=== PATIENT | male | born 1975 | race Two or more races ===

== ENCOUNTER 2016-10-17 14:04 | Emergency (ER) | payer SELFPAY ==
[2016-10-17 14:43] VITALS: BP 122/78; PULSE 76; TEMP 98; BMI 55.2
[2016-10-17] MEDS ORDERED: TETRACAINE 0.5% HCL 0.6ML DROPPER.BOTTLE OD ONE (15:37)
[2016-10-17] MEDS ORDERED: TETRACAINE 0.5% OPHTH SOLN 2 ML BOTTLE ONE (15:38)
--- NOTE | 2016-10-17 15:43 | PDOC ---
History of Present Illness - General Chief Complaint: Eye Problem Stated Complaint: EYE PROBLEM Time Seen by Provider: 10/17/16 15:26 History Source: Patient, Health Support Specialist Used ([id number]) Exam Limitations: Language Barrier - History of Present Illness Initial Comments: 10/17/16 15:47 41 yr male states he got dust in his eye one week ago now itchy red and discharge. no pain denies photophobia no change in vision noted. Pt does not use glasses. Timing/Duration: 1 week Past History - Past Medical History Allergies/Adverse Reactions: Allergies Allergy/AdvReac Type Severity Reaction Status Date / Time No Known Allergies Allergy Verified 10/17/16 14:39 Home Medications: Ambulatory Orders Polymyxin B Sulf/Trimethoprim [Polymyxin B-Tmp Eye Drops] 2 drop OD QID #1 bottle 10/17/16 Other medical history: morbid obestiy - Psycho/Social/Smoking Cessation Hx Anxiety: No Suicidal Ideation: No Smoking History: Never smoked Information on smoking cessation initiated: No Hx Alcohol Use: No Drug/Substance Use Hx: No Substance Use Type: None Review of Systems - Review of Systems Able to Perform ROS?: Yes Is the patient limited Maldivian proficient: No Constitutional: No: Symptoms Reported HEENTM: Yes: See HPI *Physical Exam - Vital Signs Last Vital Signs Temp Pulse Resp BP Pulse Ox 98.0 F 76 18 122/78 100 10/17/16 14:40 10/17/16 14:40 10/17/16 14:40 10/17/16 14:40 10/17/16 14:40 - Physical Exam General Appearance: Yes: Nourished, Appropriately Dressed HEENT: positive: EOMI, MARYANA, Other (right eye with conjunctival erythema, injected with discharge , neg hyphema) Neck: negative: Tender Respiratory/Chest: positive: Lungs Clear, Normal Breath Sounds Cardiovascular: positive: Regular Rhythm, Regular Rate Procedures - Eye Procedure Alcaine Drops Administered: Yes (2 drops ) Progress: 10/17/16 15:51 neg fb seen, neg uptake no abrasion Medical Decision Making - Medical Decision Making 10/17/16 15:52 right eye itchy red with discharge for one week after getting dust in the eye no pain neg photophobia neg visual disturbance acuity is 20/30 bilaterally without corrective lenses *DC/Admit/Observation/Transfer Diagnosis at time of Disposition: Conjunctivitis Qualifiers: Conjunctivitis type: acute Acute conjunctivitis type: viral Laterality: right Qualified Code(s): B30.9 - Viral conjunctivitis, unspecified - Prescriptions Prescriptions: Polymyxin B Sulf/Trimethoprim [Polymyxin B-Tmp Eye Drops] 2 drop OD QID #1 bottle - Referrals Referrals: Steven Bray [Staff Physician] - - Patient Instructions Additional Instructions: please follow with the eye doctor in 48hrs for follow up call today to make appointment use the eye drops as prescribed wash hands frequently change pillow cases bath towels to avoid recontaminating the surface
== END 2016-10-17 15:53 | disposition home or self-care (01) ==
LOC: JERFT 14:04
PROC: 4A07X0Z Measurement of Visual Acuity, External Approach (ICD-10-PCS; principal; 2016-10-17)
DX: B30.9 Viral conjunctivitis, unspecified (principal); B97.89 Other viral agents as the cause of diseases classified elsewhere
CPT/HCPCS: 99281-25

== ENCOUNTER 2017-07-05 08:50 | Emergency (ER) | payer SELFPAY ==
[2017-07-05 09:06] VITALS: TEMP 98; BMI 55.5
[2017-07-05 09:06] LABS: URINE APPEARANCE Clear; URINE BILIRUBIN Negative (NEGATIVE); URINE COLOR AMBER; URINE GLUCOSE (UA) 2+ (NEGATIVE); URINE KETONE Negative (NEGATIVE); URINE LEUK ESTERASE Negative (NEGATIVE); URINE NITRITE Negative (NEGATIVE); URINE PROTEIN Negative (NEGATIVE); URINE UROBILINOGEN 0.2 (0.2-1.0)
[2017-07-05] MEDS ORDERED: HEMOQUE TEST 1 EACH EACH ONE (09:10)
--- NOTE | 2017-07-05 09:38 | PDOC ---
History of Present Illness - History of Present Illness Initial Comments: 07/05/17 09:41 42 yo M with h/o morbid obesity, NIDDM who p/w lightheadedness. Patient reports 3 days of biliary, non bloody emesis following PO intake, and loose watery stools ( now resolved). States that he developed lightheadedness without LOC, while taking his friend to the ED this AM. Also reports burning epigastric pain , worse with emesis and decreased PO intake. No hematemesis, BPR. Patient also with chronic urinary complaints. Reports chronic dysuria, and suprpapubic discomfort with absent hematuria, or increased urinary frequency. Denies F/C, CP, constipation,weakness, sensory changes PMH: as noted above. Reports h/o hernia repair. Denies h/o endoscopy. Does not f /w GI. Denies h/o STIs. Medication: Denies ROS: as noted above SHx: Denies Etoh use. Tobacco cessation 10 years ago. Denies h/o IVDA. Allergies: NKDA <Mahendra Gale - Last Filed: 07/05/17 12:10> <Darvin Cobb - Last Filed: 07/12/17 07:55> - General Chief Complaint: Urinary Problem Stated Complaint: URINARY SYMPTOMS,DIZZINESS Time Seen by Provider: 07/05/17 09:03 Past History - Past Medical History Asthma: Yes COPD: No Diabetes: Yes - Immunization History Immunization Up to Date: Yes - Suicide/Smoking/Psychosocial Hx Smoking Status: Yes Smoking History: Former smoker Have you smoked in the past 12 months: No Number of Cigarettes Smoked Daily: 0 If you are a former smoker, when did you quit?: 10 years ago Information on smoking cessation initiated: No Hx Alcohol Use: No Drug/Substance Use Hx: No Substance Use Type: None <Mahendra Gale - Last Filed: 07/05/17 12:10> <Darvin Cobb - Last Filed: 07/12/17 07:55> - Past Medical History Allergies/Adverse Reactions: Allergies Allergy/AdvReac Type Severity Reaction Status Date / Time No Known Allergies Allergy Verified 07/05/17 08:52 Home Medications: Ambulatory Orders Metformin HCl 500 mg PO BID #20 tablet 07/29/15 Review of Systems - Review of Systems Comments:: 07/05/17 10:00 GENERAL/CONSTITUTIONAL: No fever or chills. No weakness. HEAD, EYES, EARS, NOSE AND THROAT: No change in vision. No ear pain or discharge. No sore throat. CARDIOVASCULAR: No chest pain or shortness of breath RESPIRATORY: + cough. No wheezing, or hemoptysis. GASTROINTESTINAL: + nausea, vomiting, diarrhea. No constipation. GENITOURINARY+dysuria. No frequency, or change in urination. MUSCULOSKELETAL: No joint or muscle swelling or pain. No neck or back pain. SKIN: No rash NEUROLOGIC: + Lightheadedness. No headache, vertigo, loss of consciousness, or change in strength/sensation. ENDOCRINE: No increased thirst. No abnormal weight change HEMATOLOGIC/LYMPHATIC: No anemia, easy bleeding, or history of blood clots. ALLERGIC/IMMUNOLOGIC: No hives or skin allergy. <Mahendra Gale - Last Filed: 07/05/17 12:10> *Physical Exam - Vital Signs Last Vital Signs Temp Pulse Resp BP Pulse Ox 98 F 94 H 18 137/82 98 07/05/17 08:50 07/05/17 08:50 07/05/17 08:50 07/05/17 08:50 07/05/17 08:50 - Physical Exam Comments: 07/05/17 10:02 GENERAL: Awake, alert, and fully oriented, in no acute distress HEAD: No signs of trauma, normocephalic, atraumatic EYES: PERRLA, EOMI, sclera anicteric, conjunctiva clear ENT:Dry mucous membranes. Auricles normal inspection, hearing grossly normal, nares patent, oropharynx clear without exudates. NECK: Normal ROM, supple, no lymphadenopathy, JVD, or masses LUNGS: No distress, speaks full sentences, clear to auscultation bilaterally HEART: Regular rate and rhythm, normal S1 and S2, no murmurs, rubs or gallops, peripheral pulses normal and equal bilaterally. ABDOMEN: Portruberant abdomen. Soft, nontender, normoactive bowel sounds. No guarding, no rebound, no rigidity. No masses. Neg CVA ttp. No suprpapubic ttp. : Erythematous distal foreskin, with 1 mm L horizontal fissure. When foreskin retracted able to visualzie glans penis. Glans penis with zhang/white skin change. Absent discharge or blood from urethral meatus. Absent scrotal ttp or swelling. EXTREMITIES : Normal inspection, Normal range of motion, no edema. No clubbing or cyanosis. SKIN: Warm, Dry, normal turgor, no rashes or lesions noted <Mahendra Gale - Last Filed: 07/05/17 12:10> - Vital Signs Last Vital Signs Temp Pulse Resp BP Pulse Ox 98 F 80 18 130/78 99 07/05/17 08:50 07/05/17 12:34 07/05/17 12:34 07/05/17 12:34 07/05/17 12:34 <Darvin Cobb S - Last Filed: 07/12/17 07:55> ED Treatment Course - LABORATORY CBC & Chemistry Diagram: 07/05/17 09:30 07/05/17 10:37 - ADDITIONAL ORDERS Additional order review: Laboratory Results 07/05/17 08:57 Urine Color Parris Urine Appearance Clear Urine pH 5.0 Ur Specific [place] 1.020 Urine Protein Negative Urine Glucose (UA) 2+ H Urine Ketones Negative Urine Blood Negative Urine Nitrite Negative Urine Bilirubin Negative Urine Urobilinogen 0.2 Ur Leukocyte Esterase Negative <Mahendra Gale - Last Filed: 07/05/17 12:10> - LABORATORY CBC & Chemistry Diagram: 07/05/17 09:30 07/05/17 10:37 - ADDITIONAL ORDERS Additional order review: 07/05/17 07/05/17 09:33 09:30 RBC 5.76 H MCV 85.6 MCHC 34.0 RDW 12.3 MPV 7.4 L Neutrophils % 47.1 Lymphocytes % 37.7 Monocytes % 10.8 H Eosinophils % 2.8 Basophils % 1.6 POC Glucometer [id number] - Medications Given in the ED: ED Medications Discontinued Medications Generic Name Dose Route Start Last Admin Trade Name Freq PRN Reason Stop Dose Admin Ondansetron HCl 4 mg 07/05/17 09:57 07/05/17 10:11 Zofran Injection IVPB 07/05/17 09:58 4 mg ONCE ONE Administration <Darvin Cobb S - Last Filed: 07/12/17 07:55> Medical Decision Making - Medical Decision Making 07/05/17 10:05 42 yo M with h/o morbid obesity, poorly controlled NIDDM who p/w acute lightheadedness and 3 days of biliary, non bloody emesis, and loose watery stools. VSS, A&OX3, NAD. Patient with clinical s/s of dehydration. Will IVF resuscitate. Will evaluate for electrolyte abnml, toxic or acid base disturbance , metabolic derangements, or underlying infections. GI type symptoms most likely self limiting and 2/2 acute viral gastroenteritis. Will also consider symptomatic hyperglycemia, HHS, biliary pathology/dz., cystitis. Patient uncircumcised with with likely penile yeast infection. ED course: CBC, CMP, Cardiac Pr, PT/INR UA EKG Zofran, NS EKG: NSR with TWI lead III. Absent SEGUNDO, STD. Normal interval duration and axis. 07/05/17 11:44 CBC: Unremarkable Glu: 313 CMP: Unremarkable UA: Neg Patient safe for d/c with return precautions. Advised to f/u with PMD. <Mahendra Gale - Last Filed: 07/05/17 12:10> *DC/Admit/Observation/Transfer - Attestations Physician Attestion: 07/05/17 10:12 I attest to the information provided in this note. <Mahendra Gale - Last Filed: 07/05/17 12:10> <Darvin Cobb - Last Filed: 07/12/17 07:55> Diagnosis at time of Disposition: Yeast infection of the skin, Morbid obesity, Noncompliance with medication regimen, Diabetes - Discharge Dispostion Disposition: HOME Condition at time of disposition: Stable - Referrals Referrals: Joaquín Montiel MD [Staff Physician] - - Patient Instructions Printed Discharge Instructions: DI for Abdominal Pain-Adult, Type 2 Diabetes Additional Instructions: Please return to the emergency department with any new or worsening symptoms or concerns. Please follow up with your primary care physician within 72 hours. Please take Metformin as prescribed by your primary care physician. Print Language: AZERBAIJANI Attending Attestation - Resident Resident Name: Mahendra Gale - ED Attending Attestation I have performed the following: I have examined & evaluated the patient, The case was reviewed & discussed with the resident, I agree w/resident's findings & plan, Exceptions are as noted - HPI HPI: Obese, non compliant diabetic male, whose MD prescribed Metformin for DM, refuses to take medication, to loose weight. States he stopped drinking or using drugs 07/12/17 07:46 - Physicial Exam PE: Alert, oriented x 3, Obese No acute distress His complaint now is irritation on a noncircumsized penis with mild irritation and fisurae. Applied Bacitracin with relief - Medical Decision Making Obese individual who refuses to comply with diet, exercise or medication No acute distress. Had extensive discussion about the importance of compliance with above including but not limited to medical follow up with his doctor. Discussion with local service tech as well with phone translation Seemingly patient understood instructions and follow up with his local doctor, diet etc 07/12/17 07:51 <Darvin Cobb S - Last Filed: 07/12/17 07:55>
[2017-07-05] MEDS ORDERED: ONDANSETRON 4 MG/2 ML VIAL IVPB ONE (09:57)
[2017-07-05 10:05] LABS: BASO % 1.6 % (0-2.0); EOS % 2.8 % (0-4.5); HEMATOCRIT 49.3 % (35.4-49); HEMOGLOBIN 16.8 GM/dl (11.7-16.9); LYMPH % 37.7 % (8-40); MCH 29.1 pg (25.7-33.7); MEAN CELL VOLUME 85.6 fl (80-96); MEAN PLT VOLUME 7.4 fl (7.5-11.1); MONO % 10.8 % (3.8-10.2); NEUT % 47.1 % (42.8-82.8); PLATELET COUNT 364 K/MM3 (134-434); RBC 5.76 M/mm3 (4.00-5.60); RDW 12.3 % (11.9-15.9); WHITE BLOOD COUNT 8.3 K/mm3 (4.0-10.8)
[2017-07-05] MEDS ORDERED: ONDANSETRON 4 MG/2 ML VIAL ONE (10:06)
[2017-07-05 10:15] LABS: INR 0.98 (0.82-1.09)
[2017-07-05 11:33] LABS: ALBUMIN 3.7 g/dl (3.5-5.0); ALK PHOS 87 U/L (32-92); ANION GAP 8 (8-16); BILIRUBIN,TOTAL 0.5 mg/dl (0.2-1.0); BLOOD UREA NITROGEN 13 mg/dl (7-18); CALCIUM 8.8 mg/dl (8.4-10.2); CHLORIDE 106 mmol/L (98-107); CO2 23 mmol/L (22-28); POTASSIUM 4.2 mmol/L (3.5-5.1); SGOT/AST 29 U/L (10-42); SGPT/ALT 49 U/L (10-40); SODIUM 137 mmol/L (136-145); TOT PROT 6.8 g/dl (6.4-8.3)
[2017-07-05 11:37] LABS: GLUCOSE,RANDOM 313 mg/dl (74-106)
[2017-07-05 11:54] LABS: LIPASE 66 U/L (73-393)
[2017-07-05 13:35] VITALS: BP 130/78; PULSE 80
--- NOTE | 2017-07-06 11:22 | EKG ---
Test Reason : Blood Pressure : / mmHG Vent. Rate : 097 BPM Atrial Rate : 097 BPM P-R Int : 158 ms QRS Dur : 088 ms QT Int : 366 ms P-R-T Axes : 043 043 001 degrees QTc Int : 464 ms NORMAL SINUS RHYTHM POOR R WAVE PROGRESSION NO PREVIOUS ECGS AVAILABLE Confirmed by EVER PIERRE, OLGA ([id number]) on 07/06/2017 11:22:16 AM Referred By: RAMON AKBAR Confirmed By:OLGA CURTIS MD
== END 2017-07-05 13:30 | disposition home or self-care (01) ==
LOC: FER 08:50 → MERGE 08:50 → FER 13:30
PROC: 3E033GC Introduction of Other Therapeutic Substance into Peripheral Vein, Percutaneous Approach (ICD-10-PCS; principal; 2017-07-05)
DX: B37.2 Candidiasis of skin and nail (principal); E66.01 Morbid (severe) obesity due to excess calories; Z68.43 Body mass index [BMI] 50.0-59.9, adult; Z91.14 Patient's other noncompliance with medication regimen; E11.9 Type 2 diabetes mellitus without complications; Z87.891 Personal history of nicotine dependence
CPT/HCPCS: 36415; 80053; 81003; 82550; 82553; 82962; 83690; 84484; 85025; 85610; 93005; 99283-25

== ENCOUNTER 2018-07-22 10:19 | Emergency (ER) | payer SELFPAY | END 2018-07-22 18:30 | disposition home or self-care (01) | LOC: JER 10:19 ==

== ENCOUNTER 2019-02-02 14:09 | Inpatient (IN) | payer OTHER ==
[2019-02-02 14:28] VITALS: BMI 45.3
[2019-02-02] MEDS ORDERED: morphine CARPU-JECT 4 MG/1 ML DISP.SYRIN IVPUSH ONE (17:50)
[2019-02-02] MEDS ORDERED: SODIUM CHLORIDE 0.9% 500 ML INFUS.BAG IV ONE ×2 (17:54→19:26)
[2019-02-02] MEDS ORDERED: ACETAMINOPHEN 1000 MG/100 ML VIAL (NON FORMULARY) IVPB ONE (17:54)
[2019-02-02] MEDS ORDERED: ACETAMINOPHEN 325 MG TABLET (FP) PO ONE (17:56)
--- NOTE | 2019-02-02 17:57 | PDOC ---
History of Present Illness - General Chief Complaint: Pain Stated Complaint: PAIN Time Seen by Provider: 02/02/19 16:56 History Source: Patient Exam Limitations: No Limitations - History of Present Illness Initial Comments: 02/02/19 17:48 Patient is a 43-year-old male with history of appendectomy, diabetes uncontrolled, here with complaints of right lower quadrant and right groin pain with a purulent discharge from the groin area x 5 days. Patient states his pain has been 9/10, sharp aggravated with walking no alleviating factors. States today he has been having some urinary problems, with urinary frequency and dribbling on his pants. Patient denies any fever, chills, nausea, vomiting. Patient states he has not seen anyone or taking medications for his diabetes in 1 year. He has been controlling it by drinking lots of water. PMHX: As above PSOCHX: neg etoh, drug, cig ALL: NKDA GENERAL/CONSTITUTIONAL: [No fever or chills. No weakness. No weight change.] HEAD, EYES, EARS, NOSE AND THROAT: [No change in vision. No ear pain or discharge. No sore throat.] CARDIOVASCULAR: [No chest pain or shortness of breath.] RESPIRATORY: [No cough, wheezing, or hemoptysis.] GASTROINTESTINAL: [No nausea, vomiting, diarrhea or constipation. No rectal bleeding.] GENITOURINARY: [No dysuria, frequency, or change in urination.] MUSCULOSKELETAL: [No joint or muscle swelling or pain. No neck or back pain.] SKIN AND BREASTS: [No rash or easy bruising.] NEUROLOGIC: [No headache, vertigo, loss of consciousness, or loss of sensation.] PSYCHIATRIC: [No depression or anxiety.] ENDOCRINE: [(+) increased thirst. (+) abnormal weight change.] HEMATOLOGIC/LYMPHATIC: [No anemia, easy bleeding, or history of blood clots.] ALLERGIC/IMMUNOLOGIC: [No hives or skin allergy. No latex allergy.] GENERAL: [The patient is awake, alert, and fully oriented, in moderate painful distress.] HEAD: [Normal with no signs of trauma.] EYES: [Pupils equal, round and reactive to light, extraocular movements intact, sclera anicteric, conjunctiva clear.] ENT: [Ears normal, nares patent, oropharynx clear without exudates. Moist mucous membranes.] NECK: [Normal range of motion, supple without lymphadenopathy, JVD, or masses.] LUNGS: [Breath sounds equal, clear to auscultation bilaterally. No wheezes, and no crackles.] HEART: [Regular rate and rhythm, normal S1 and S2 without murmur, rub.] ABDOMEN: [Soft, obese, (+) tenderness to the RLQ, groin, suprapubic and testicle , tender firm mass to the right groin, suprapubic area with surrounding erythema extending to the scrotal sac, normoactive bowel sounds. No guarding, no rebound. No masses.] : Tender swollen right testicle, moderate erythema to the sac, erythema and tenderness to the shaft of the penis, EXTREMITIES: [Normal range of motion, no edema. No clubbing or cyanosis. No cords, erythema, or tenderness.] NEUROLOGICAL: [Cranial nerves II through XII grossly intact. Normal speech, normal gait.] PSYCH: [Normal mood, normal affect.] SKIN: [Warm, Dry, normal turgor, no rashes or lesions noted.] Past History - Past Medical History Allergies/Adverse Reactions: Allergies Allergy/AdvReac Type Severity Reaction Status Date / Time No Known Allergies Allergy Verified 02/02/19 14:28 Home Medications: Ambulatory Orders metFORMIN HCL [Metformin HCl] 500 mg PO BID #20 tablet 07/29/15 Asthma: Yes COPD: No Diabetes: Yes - Immunization History Immunization Up to Date: Yes - Psycho Social/Smoking Cessation Hx Smoking Status: Yes Smoking History: Never smoked Have you smoked in the past 12 months: No Number of Cigarettes Smoked Daily: 0 If you are a former smoker, when did you quit?: 10 years ago Hx Alcohol Use: No Drug/Substance Use Hx: No Substance Use Type: None *Physical Exam - Vital Signs Last Vital Signs Temp Pulse Resp BP Pulse Ox 98.8 F 120 H 18 139/92 97 02/02/19 14:24 02/02/19 14:24 02/02/19 14:24 02/02/19 14:24 02/02/19 14:24 ED Treatment Course - LABORATORY CBC & Chemistry Diagram: 02/02/19 18:20 02/02/19 18:20 Medical Decision Making - Medical Decision Making 02/02/19 17:48 Patient is a 43-year-old male with history of appendectomy, diabetes uncontrolled, here with complaints of right lower quadrant and right groin pain with a purulent discharge from the groin area x 5 days. Patient states his pain has been 9/10, sharp aggravated with walking no alleviating factors. States today he has been having some urinary problems, with urinary frequency and dribbling on his pants. Patient denies any fever, chills, nausea, vomiting. Patient states he has not seen anyone or taking medications for his diabetes in 1 year. He has been controlling it by drinking lots of water. DDX:, abscess groin, concerns for it extending into the testicular sac, cellulitis, Tarun's Patient is tachycardic, and a temperature taken in the vertical area was 100 degrees Fahrenheit orally. Suspect that the patient has sepsis. Sepsis work-up done. Labs, IV fluids x3 L ordered Tylenol, morphine 4 mg IV for pain. Zosyn 3.375 g IV Will obtain a CT scan of the abdomen pelvis to look for Tarun's and abscess. Reassess, Selected Entries 02/02/19 20:29 Temperature 99.8 F H Pulse Rate [ 105 H Left Brachial] Respiratory 17 Rate Blood Pressure 119/77 [Left Arm] O2 Sat by Pulse 96 Oximetry (%) Laboratory Tests 02/02/19 02/02/19 02/02/19 18:20 18:20 18:20 WBC 17.6 H Hgb 15.4 Hct 45.3 Plt Count 313 Absolute Neuts (auto) 12.4 H Monocytes % 13.8 H PT with INR INR VBG pH POC VBG pCO2 POC VBG pO2 VBG HCO3 VBG O2 Sat (Gutierrez) VBG Base Excess Sodium 131 L Potassium 3.8 Chloride 98 Carbon Dioxide 24 Anion Gap 10 BUN 11.3 Creatinine 1.2 Random Glucose 373 H Lactic Acid 3.6 H* 02/02/19 02/02/19 18:20 18:20 WBC Hgb Hct Plt Count Absolute Neuts (auto) Monocytes % PT with INR 14.10 H INR 1.19 H VBG pH 7.42 H POC VBG pCO2 35.9 L POC VBG pO2 < 49 H VBG HCO3 23.0 VBG O2 Sat (Gutierrez) 78.0 VBG Base Excess -0.5 Sodium Potassium Chloride Carbon Dioxide Anion Gap BUN Creatinine Random Glucose Lactic Acid Urine is negative 02/03/19 00:45 Patient Full Name: MEHRAN STEWART Patient Accession No: [id number] Patient : 1975 Reason for Exam: abscess Addenda Reason: Additional images added to study image count is now [id number] site would like addendum Referring Physician: Patient Name: TERRY LAURENT THIS IS A PRELIMINARY REPORT FROM [facility] DATE OF SERVICE: 2019-02-02 22:19:22 IMAGES: [id number] EXAM: CT ABDOMEN and CT PELVIS CT WITH CONTR HISTORY: 43-year-old male uncontrolled diabetes right groin draining pus infection extending into the right scrotum assess for an abscess COMPARISON: None. FINDINGS: Mild basilar atelectasis. Mild hepatomegaly and steatosis. Dependent density in the gallbladder neck most likely due to sludge or cholelithiasis with moderate gallbladder distention. Mild nonspecific splenomegaly most likely due to mild portal venous hypertension. Pancreas adrenal glands kidneys appear unremarkable. No nephrolithiasis or hydronephrosis. Stomach small bowel and appendix appear unremarkable. No appendicitis. Mild diverticulosis without diverticulitis. Calcified granulomas in the prostate. Moderate bladder distention. Moderate amount of fluid and edema in the right groin consistent with soft tissue cellulitis infection. Right groin nonspecific lymphadenopathy most likely reactive to infection. Mild to moderate degenerative disc disease. Significant subcutaneous adipose tissue is incompletely included within the [id number]. IMPRESSION: Moderate amount of fluid and edema in the right groin consistent with soft tissue cellulitis infection. If there is a clinical concern for Tarun's gangrene infection of the scrotum, then further evaluation and workup with a CT Scan Of The Pelvis And Proximal Thighs Down To Below The Level Of The Identified Air Gap On The Building Economist Image Between The Legs Below The Level Of The Midline Soft Tissues Of The Scrotum And Medial Pelvis And Medial Proximal Thighs may be needed. Right groin nonspecific lymphadenopathy most likely reactive to infection. Mild hepatomegaly and steatosis. Dependent density in the gallbladder neck most likely due to sludge or cholelithiasis with moderate gallbladder distention. If there is a clinical indication further evaluation and workup with a ultrasound of the gallbladder may be needed. Mild nonspecific splenomegaly most likely due to mild portal venous hypertension. Mild diverticulosis without diverticulitis. Calcified granulomas in the prostate. Moderate bladder distention. A verbal report of the abnormal results were discussed with Olena PAC by Dr. Leija at 12:02 AM EST February 03, 2019. This CT exam was performed using one or more of the following dose reduction techniques: automated exposure control, adjustment of the mA and/or kV according to patient size, use of iterative reconstruction technique. One or more of the following dose reduction techniques were used: automated exposure control, adjustment of the mA and/or kV according to patient size, use of iterative reconstructive technique. THIS DOCUMENT HAS BEEN ELECTRONICALLY SIGNED Ward Leija MD 02/03/2019 00:27 HARLAN Bran Please call Imaging Superson[facility] [phone] with questions. INTERPRETING RADIOLOGIST: Ward Leija MD Electronically Signed: Feb 03, 2019 12:28AM EST Called by the radiologist to inform that the scan would need to have more images so that Tarun's can be assessed. Patient written for pelvic CT with follow-through to the thigh proximally. Spoke to the radiology physician assistant who states that he could reformat the images and send it to the radiologist before scanning the patient again. Images sent to radiologist per environmental health technologist and patient was sent back to room. Patient Full Name: MEHRAN STEWART Patient Accession No: [id number] Patient : 1975 Reason for Exam: abscess Addenda Reason: Additional images added to study image count is now [id number] site would like addendum Referring Physician: TERRY LAURENT IMAGES: [id number] scan images of the pelvis are now provided. Moderate to large bilateral scrotal hydroceles suspicious for infection incompletely included within the [id number]. Mild nonspecific scrotal skin thickening most likely due to soft tissue cellulitis infection. No subcutaneous gas is included within the [id number] to suggest Tarun's gangrene infection. The lower scrotum is excluded. Cannot exclude pathology in the lower scrotum outside the field of view. If clinically indicated follow-up evaluation scrotal ultrasound may be needed. One or more of the following dose reduction techniques were used: automated exposure control, adjustment of the mA and/or kV according to patient size, use of iterative reconstructive technique. THIS DOCUMENT HAS BEEN ELECTRONICALLY SIGNED Ward Leija MD 02/03/2019 00:52 HARLAN Barn Please call Imaging Supersonic Engineer [phone]) with questions. Lactic repeated after 2 L now 1.3 Patient improved from pain. Dr. Manning was consulted recommended to give clindamycin 900 mg IV. Consult also placed for urology Dr. Goodman CAT scan images still not adequate for evaluation will send the patient back for the pelvic CT scan Noncon with evaluation down to proximal thigh. Discharge - Discharge Information Problems reviewed: Yes Clinical Impression/Diagnosis: Groin abscess, Tarun's disease Abdominal pain Qualifiers: Abdominal location: right lower quadrant Qualified Code(s): R10.31 - Right lower quadrant pain Condition: Fair - Admission Yes - Follow up/Referral - Patient Discharge Instructions - Post Discharge Activity
[2019-02-02 18:39] LABS: BASO % 1.2 % (0-2.0); EOS % 0.6 % (0-4.5); HEMATOCRIT 45.3 % (35.4-49); HEMOGLOBIN 15.4 GM/dL (11.7-16.9); LYMPH % 13.9 % (8-40); MCH 28.6 pg (25.7-33.7); MCHC 33.9 g/dl (32.0-35.9); MEAN CELL VOLUME 84.3 fl (80-96); MEAN PLT VOLUME 7.5 fl (7.5-11.1); MONO % 13.8 % (3.8-10.2); NEUT % 70.5 % (42.8-82.8); PLATELET COUNT 313 K/MM3 (134-434); RBC 5.37 M/mm3 (4.00-5.60); RDW 13.4 % (11.9-15.9); WHITE BLOOD COUNT 17.6 K/mm3 (4.0-10.0)
[2019-02-02 18:40] LABS: VENOUS PC02 35.9 mmHg (38-52); VENOUS PH 7.42 (7.31-7.41)
[2019-02-02 18:41] LABS: VENOUS PO2 < 49 mmHg (28-48)
[2019-02-02 18:47] LABS: PH,URINE 5.5 (5.0-8.0); URINE APPEARANCE CLEAR; URINE BILIRUBIN NEGATIVE (NEGATIVE); URINE COLOR YELLOW; URINE GLUCOSE (UA) 3+ (NEGATIVE); URINE KETONE NEGATIVE (NEGATIVE); URINE LEUK ESTERASE NEGATIVE (NEGATIVE); URINE NITRITE NEGATIVE (NEGATIVE); URINE PROTEIN NEGATIVE (NEGATIVE)
[2019-02-02 18:52] LABS: INR 1.19 (0.83-1.09); PROTHROMBIN TIME (PATIENT) 14.1 SEC (9.7-13.0)
[2019-02-02] MEDS ORDERED: morphine SULFATE 4 MG/ML VIAL ONE (18:53)
[2019-02-02] MEDS ORDERED: ACETAMINOPHEN 325 MG TABLET (FP) ONE (18:53)
[2019-02-02 19:16] LABS: ALBUMIN 3.2 g/dl (3.4-5.0); BILIRUBIN,TOTAL 0.8 mg/dL (0.2-1); BLOOD UREA NITROGEN 11.3 mg/dL (7-18); CALCIUM 8.8 mg/dL (8.5-10.1); CREATININE 1.2 mg/dL (0.55-1.3); POTASSIUM 3.8 mmol/L (3.5-5.1); TOT PROT 7.2 g/dl (6.4-8.2)
[2019-02-02] MEDS ORDERED: PIPERACILLIN/TAZOB 3.375 GM 3.375 GM in DEXTROSE 5%-WATER - 50 ML IVPB ONE ×2 (19:27→19:56)
[2019-02-02] MEDS ORDERED: PIPERACILLIN/TAZOB 3.375 GM 3.375 GM/50 ML BAG IVPB ONE (20:03)
[2019-02-03] MEDS ORDERED: CLINDAMYCIN 900 MG PREMIX IVPB 900 MG/50 ML BAG IVPB ONE ×2 (01:24→01:31)
--- NOTE | 2019-02-03 01:25 | HP ---
CHIEF COMPLAINT: RIGHT groin pain PCP: none HISTORY OF PRESENT ILLNESS: 43 y/o male PMH DM not on any treatment c/o right groin pain. He states that for one week he has experienced fever, worse at night, not recorded at home. Subsequently a tennis-ball sized swelling developed in the RIGHT groin ( approximately 29 Jan 2019). He states that swellings like this have occurred in the past, last time 1 year ago, but past instances have never been this large. Three days ago the swelling ruptured and began to bleed. He took his sister's Augmentin 30 mg once a day when it began to bleed (total of 3 days). He came in today 2/2 nausea and vomiting: multiple times today, stomach acid, not food containing, partially bloody, non-bilious. A concurrent symptom is foul smelling dysuria for 1 week. He describes difficulty initiating urination, assists by lifting his panus, and has seen hematuria. Additionally, he reports bloody stool for the last 4 years, pellet-like shape, with no mucus. He has never had a colonoscopy. His sister had breast cancer. He endorses weight loss of 60 lbs over the last 2 years; 390 to 330 lbs which he attributes to decreased appetite. The patient lives in his sister's house in [place] and has a son here but returns to [place] periodically. He denies recent illness, sick contacts, and new food. He denies cough, SOB, CP, abdominal pain, and BEYER. ER course was notable for: (1) CT read no subcutaneous gas; but clinical appearance of Tarun's Gangrene (2) FS 373 (3) Assessed by general surgery; urology on the way Family history: Mother DM, sister breast CA PAST MEDICAL HISTORY: DM PAST SURGICAL HISTORY: RIGHT inguinal hernia repair (1998 Mukul) Social History: Smoking: denies Alcohol: denies Drugs: denies Does not work Sexual history: Currently sexually active with women only. H/o STI in past but pt cannot recall what it was. Allergies: No Known Allergies Allergy (Verified 02/02/19 14:28) HOME MEDICATIONS: Denies taking any medications REVIEW OF SYSTEMS CONSTITUTIONAL: Absent: fever, chills, diaphoresis, generalized weakness, malaise, loss of appetite, weight change HEENT: Absent: rhinorrhea, nasal congestion, throat pain, throat swelling, difficulty swallowing, mouth swelling, ear pain, eye pain, visual changes CARDIOVASCULAR: Absent: chest pain, syncope, palpitations, irregular heart rate, lightheadedness , peripheral edema RESPIRATORY: Absent: cough, shortness of breath, dyspnea with exertion, orthopnea, wheezing, stridor, hemoptysis GASTROINTESTINAL: Absent: abdominal pain, abdominal distension, nausea, vomiting, diarrhea, constipation, melena, hematochezia GENITOURINARY: Absent: dysuria, frequency, urgency, hesitancy, hematuria, flank pain, genital pain MUSCULOSKELETAL: Absent: myalgia, arthralgia, joint swelling, back pain, neck pain SKIN: Absent: rash, itching, pallor HEMATOLOGIC/IMMUNOLOGIC: Absent: easy bleeding, easy bruising, lymphadenopathy, frequent infections ENDOCRINE: Absent: unexplained weight gain, unexplained weight loss, heat intolerance, cold intolerance NEUROLOGIC: Absent: headache, focal weakness or paresthesias, dizziness, unsteady gait, seizure, mental status changes, bladder or bowel incontinence PSYCHIATRIC: Absent: anxiety, depression, suicidal or homicidal ideation, hallucinations. PHYSICAL EXAMINATION Vital Signs - 24 hr 02/02/19 02/02/19 14:24 20:29 Temperature 98.8 F 99.8 F H Pulse Rate 120 H Pulse Rate [ 105 H Left Brachial] Respiratory 18 17 Rate Blood Pressure 139/92 Blood Pressure 119/77 [Left Arm] O2 Sat by Pulse 97 96 Oximetry (%) GENERAL: AOx3, in no acute distress. Obese. Diaphoretic. Upper Sorbian speaking. HEAD: NCAT EYES: KELBY, EOMI, conjunctiva clear. ENT: Ears normal, nares patent, oropharynx clear without exudates. Moist mucous membranes. NECK: Normal range of motion, supple without lymphadenopathy, JVD, or masses. LUNGS: CTAB. No wheezes, and no crackles. No accessory muscle use. HEART: RRR s1 s2 ABDOMEN: Obese, soft, BS present in all 4 quadrants, non-distended, no JVD, MUSCULOSKELETAL: No bony deformities or tenderness. No CVA tenderness. UPPER EXTREMITIES: 2+ pulses, warm, well-perfused. No cyanosis. No clubbing. No peripheral edema. LOWER EXTREMITIES: 2+ pulses, warm, well-perfused. No calf tenderness. No peripheral edema. : Shaved mons pubus. RIGHT inguinal tenderness, dried blood. Edema of the mons pubis great on RIGHT, erythematous, tender to palpation and warm. Penile and scrotal edema and erythema. No grossly apparent lesion/source of blood. POSTIVE RIGHT inguinal lymphadenopathy. NEUROLOGICAL: No focal deficits. Cranial nerves II-XII intact. Normal speech. Gait not appreciated. PSYCHIATRIC: Cooperative. Good eye contact. Appropriate mood and affect. SKIN: Warm, dry, normal turgor, normal capillary refill. Laboratory Results - last 24 hr 02/02/19 02/02/19 02/02/19 18:02 18:20 18:20 WBC 17.6 H RBC 5.37 Hgb 15.4 Hct 45.3 MCV 84.3 MCH 28.6 MCHC 33.9 RDW 13.4 Plt Count 313 MPV 7.5 Absolute Neuts (auto) 12.4 H Neutrophils % 70.5 Lymphocytes % 13.9 Monocytes % 13.8 H Eosinophils % 0.6 D Basophils % 1.2 Nucleated RBC % 0 PT with INR INR VBG pH POC VBG pCO2 POC VBG pO2 VBG HCO3 VBG O2 Sat (Gutierrez) VBG Base Excess Sodium 131 L Potassium 3.8 Chloride 98 Carbon Dioxide 24 Anion Gap 10 BUN 11.3 Creatinine 1.2 Est GFR (CKD-EPI)AfAm 84.13 Est GFR (CKD-EPI)NonAf 72.59 POC Glucometer 386 Random Glucose 373 H Lactic Acid Calcium 8.8 Total Bilirubin 0.8 AST 31 ALT 62 H Alkaline Phosphatase 140 H Total Protein 7.2 Albumin 3.2 L Urine Color Urine Appearance Urine pH Ur Specific [place] Urine Protein Urine Glucose (UA) Urine Ketones Urine Blood Urine Nitrite Urine Bilirubin Urine Urobilinogen Ur Leukocyte Esterase 02/02/19 02/02/19 02/02/19 18:20 18:20 18:20 WBC RBC Hgb Hct MCV MCH MCHC RDW Plt Count MPV Absolute Neuts (auto) Neutrophils % Lymphocytes % Monocytes % Eosinophils % Basophils % Nucleated RBC % PT with INR 14.10 H INR 1.19 H VBG pH 7.42 H POC VBG pCO2 35.9 L POC VBG pO2 < 49 H VBG HCO3 23.0 VBG O2 Sat (Gutierrez) 78.0 VBG Base Excess -0.5 Sodium Potassium Chloride Carbon Dioxide Anion Gap BUN Creatinine Est GFR (CKD-EPI)AfAm Est GFR (CKD-EPI)NonAf POC Glucometer Random Glucose Lactic Acid 3.6 H* Calcium Total Bilirubin AST ALT Alkaline Phosphatase Total Protein Albumin Urine Color Urine Appearance Urine pH Ur Specific [place] Urine Protein Urine Glucose (UA) Urine Ketones Urine Blood Urine Nitrite Urine Bilirubin Urine Urobilinogen Ur Leukocyte Esterase 02/02/19 18:20 WBC 17.6 RBC Hgb Hct MCV MCH MCHC RDW Plt Count MPV Absolute Neuts (auto) Neutrophils % Lymphocytes % Monocytes % Eosinophils % Basophils % Nucleated RBC % PT with INR INR VBG pH POC VBG pCO2 POC VBG pO2 VBG HCO3 VBG O2 Sat (Gutierrez) VBG Base Excess Sodium Potassium Chloride Carbon Dioxide Anion Gap BUN Creatinine Est GFR (CKD-EPI)AfAm Est GFR (CKD-EPI)NonAf POC Glucometer Random Glucose Lactic Acid Calcium Total Bilirubin AST ALT Alkaline Phosphatase Total Protein Albumin Urine Color Yellow Urine Appearance Clear Urine pH 5.5 Ur Specific [place] 1.044 H Urine Protein Negative Urine Glucose (UA) 3+ H Urine Ketones Negative Urine Blood Negative Urine Nitrite Negative Urine Bilirubin Negative Urine Urobilinogen 1.0 Ur Leukocyte Esterase Negative IMAGING Moderate amount of fluid and edema in the right groin consistent with soft tissue cellulitis infection. Right groin nonspecific lymphadenopathy most likely reactive to infection. Mild to moderate degenerative disc disease. Significant subcutaneous adipose tissue is incompletely included within the [id number]. IMPRESSION: Moderate amount of fluid and edema in the right groin consistent with soft tissue cellulitis infection. If there is a clinical concern for Tarun's gangrene infection of the scrotum, then further evaluation and workup with a CT Scan Of The Pelvis And Proximal Thighs Down To Below The Level Of The Identified Air Gap On The Content Development Manager Image Between The Legs Below The Level Of The Midline Soft Tissues Of The Scrotum And Medial Pelvis And Medial Proximal Thighs may be needed. Right groin nonspecific lymphadenopathy most likely reactive to infection. Mild hepatomegaly and steatosis. Dependent density in the gallbladder neck most likely due to sludge or cholelithiasis with moderate gallbladder distention. If there is a clinical indication further evaluation and workup with a ultrasound of the gallbladder may be needed. Mild nonspecific splenomegaly most likely due to mild portal venous hypertension. Mild diverticulosis without diverticulitis. Calcified granulomas in the prostate. Moderate bladder distention. ASSESSMENT/PLAN: 43 y/o male PMH DM not on any treatment c/o right groin pain. Clinically significant physicial exam. Tachycardic and elevated WBC. # Sepsis 2/2 scrotal cellulitis VS Tarun's Gangrene - Zosyn and clindamycin given initially and Vanc - Continue with zosyn 4.5 gm IV q6h - Continue with clindamycin 800 mg IV q8h for coverage of toxin producing bacteria - NS - Consult gen surgery - Consult urology - Consult ID - Type and screen, PT/PTT - F/u CK to assess for muscle invasion # DM - 10 units insulin now - ISS ACHS - Hba1c - Consider initiating WILLIE inhibitor for renal protection once hemodynamically stable - Fasting lipid panel # Morbid obesity - Consider bariatric surgery given 40+ BMI # Calcified granulomas in prostate - Acid fast bacili given travel to [place] - QuantiFERON gold - PA/lateral CXR - Consider biopsy if QuantiFERON is positive # Splenomegally - Seen on CT - Unclear cause - No pmh or fam h/o blood disorder #F/E/N - NS - Cont. to monitor - NPO for surgery # DVT prophylaxis - SCD # Disposition - Admit to med/surg Coleman Jaramillo MD Visit type - Emergency Visit Emergency Visit: Yes ED Registration Date: 02/03/19 Care time: The patient presented to the Emergency Department on the above date and was hospitalized for further evaluation of their emergent condition. - New Patient This patient is new to me today: Yes Date on this admission: 02/03/19 - Critical Care Critical Care patient: No ATTENDING PHYSICIAN STATEMENT I saw and evaluated the patient. I reviewed the resident's note and discussed the case with the resident. I agree with the resident's findings and plan as documented. SUBJECTIVE: OBJECTIVE: ASSESSMENT AND PLAN:
--- NOTE | 2019-02-03 01:38 | PN ---
Teaching Attending Note Name of Resident: Coleman Jaramillo ATTENDING PHYSICIAN STATEMENT I saw and evaluated the patient. I reviewed the resident's note and discussed the case with the resident. I agree with the resident's findings and plan as documented. SUBJECTIVE: 43-year-old Morbidly obese male From [place] with history of Uncontrolled diabetes, not on any medications not following with any doctors Complains of severe right groin and perineal pain for the past 4 to 5 days, with worsening redness and difficulty with urination. Patient reports taking 3 doses of his sisters Augmentin however it did not help much. He reports a boil in his right groin which burst and was bloody with some purulence. Reports some fevers and chills.Denied any discharge through his penis or diarrhea. OBJECTIVE: Last Vital Signs Temp Pulse Resp BP Pulse Ox 99.8 F H 105 H 17 119/77 96 02/02/19 20:29 02/02/19 20:29 02/02/19 20:29 02/02/19 20:29 02/02/19 20:29 GENERAL: Morbidly obese not in any distress HEENT: Normocephalic, atraumatic. PERRLA, EOMI. No conjunctival pallor. Sclera are non- icteric. Moist mucous membranes. Oropharynx is clear. NECK: Supple. Full ROM. No JVD. Carotid pulses 2+ and symmetric, without bruits. No thyromegaly. No lymphadenopathy. CARDIOVASCULAR: Regular rate and rhythm. No murmurs, rubs, or gallops. Distal pulses are 2+ and symmetric. PULMONARY: No evidence of respiratory distress. Lungs clear to auscultation bilaterally. No wheezing, rales or rhonchi. ABDOMINAL: Soft. Non-tender. Non-distended. No rebound or guarding. No organomegaly. Normoactive bowel sounds. MUSCULOSKELETAL Normal range of motion at all joints. No bony deformities or tenderness. No CVA tenderness. Extensive erythema in right groin with bloody purulent discharge on skin, extensive swelling to scrotum and penis with erythema. Warm to touch, right inguinal lymphadenopathy appreciated EXTREMITIES: No cyanosis. No clubbing. No edema. No calf tenderness. SKIN: Warm and dry. Normal capillary refill. No rashes. No jaundice. PSYCHIATRIC: Cooperative. Good eye contact. Appropriate mood and affect. Abnormal Lab Results 02/02/19 02/02/19 02/02/19 18:20 18:20 18:20 WBC 17.6 H Absolute Neuts (auto) 12.4 H Monocytes % 13.8 H PT with INR INR VBG pH POC VBG pCO2 POC VBG pO2 Sodium 131 L Random Glucose 373 H Lactic Acid 3.6 H* ALT 62 H Alkaline Phosphatase 140 H Albumin 3.2 L Ur Specific [place] Urine Glucose (UA) 02/02/19 02/02/19 02/02/19 18:20 18:20 18:20 WBC Absolute Neuts (auto) Monocytes % PT with INR 14.10 H INR 1.19 H VBG pH 7.42 H POC VBG pCO2 35.9 L POC VBG pO2 < 49 H Sodium Random Glucose Lactic Acid ALT Alkaline Phosphatase Albumin Ur Specific [place] 1.044 H Urine Glucose (UA) 3+ H HIS IS A PRELIMINARY REPORT FROM [facility] DATE OF SERVICE: 2019-02-02 22:19:22 IMAGES: 613 EXAM: CT ABDOMEN and CT PELVIS CT WITH CONTR HISTORY: 43-year-old male uncontrolled diabetes right groin draining pus infection extending into the right scrotum assess for an abscess COMPARISON: None. FINDINGS: Mild basilar atelectasis. Mild hepatomegaly and steatosis. Dependent density in the gallbladder neck most likely due to sludge or cholelithiasis with moderate gallbladder distention. Mild nonspecific splenomegaly most likely due to mild portal venous hypertension. Pancreas adrenal glands kidneys appear unremarkable. No nephrolithiasis or hydronephrosis. Stomach small bowel and appendix appear unremarkable. No appendicitis. Mild diverticulosis without diverticulitis. Calcified granulomas in the prostate. Moderate bladder distention. Moderate amount of fluid and edema in the right groin consistent with soft tissue cellulitis infection. Right groin nonspecific lymphadenopathy most likely reactive to infection. Mild to moderate degenerative disc disease. Significant subcutaneous adipose tissue is incompletely included within the [id number]. IMPRESSION: Moderate amount of fluid and edema in the right groin consistent with soft tissue cellulitis infection. If there is a clinical concern for Tarun's gangrene infection of the scrotum, then further evaluation and workup with a CT Scan Of The Pelvis And Proximal Thighs Down To Below The Level Of The Identified Air Gap On The Fuel Buyer Image Between The Legs Below The Level Of The Midline Soft Tissues Of The Scrotum And Medial Pelvis And Medial Proximal Thighs may be needed. Right groin nonspecific lymphadenopathy most likely reactive to infection. Mild hepatomegaly and steatosis. Dependent density in the gallbladder neck most likely due to sludge or cholelithiasis with moderate gallbladder distention. If there is a clinical indication further evaluation and workup with a ultrasound of the gallbladder may be needed. Mild nonspecific splenomegaly most likely due to mild portal venous hypertension. Mild diverticulosis without diverticulitis. Calcified granulomas in the prostate. Moderate bladder distention. ASSESSMENT AND PLAN: 43-year-old Morbidly obese man with uncontrolled diabetes mellitus with sepsis secondary to cellulitis of the right groin, CT of abdomen pelvis showed moderate amount of fluid and edema in right groin, nonspecific lymphadenopathy. No drainable fluid collection was appreciated on imaging. High leukocytosis, fever, lactic acidosis. UA showed only 3+ glucose. 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 Severe swelling to penis likely causing urinary outflow obstruction. I discussed case with Dr. Aiden Stark of urology and need for urgent intervention. Initial CT of abdomen pelvis did not show at level of scrotum as image was cut off Admit to [facility] Blood cultures x2 Vancomycin, Clindamycin, Zosyn empirically Strict glucose control Repeat lactate IV fluid hydration Urgent urology evaluation for debridement N.p.o. PT, PTT Type and screen EKG Lord catheter placement Repeat CT of abdomen and pelvis to show scrotal region down to thighs #Uncontrolled diabetes mellitus with hyperglycemia, pseudohyponatremia from severe hyperglycemia NovoLog sliding scale Basal insulin IV fluids Send A1c WILLIE inhibitor Fasting lipid panel #Calcified granulomas in the prostaterule out afb Send QuantiFERON gold Chest x-ray If positive QuantiFERON would consider biopsy #Splenomegaly SCDs for DVT prophylaxis
[2019-02-03] MEDS ORDERED: HEPARIN NA (PORCINE) 5,000 UNITS/ML 1ML VIAL SQ SCH (02:00)
[2019-02-03] MEDS ORDERED: VANCOMYCIN 1 GM in D5W (PRE-DOCKED) 1,000 MG/250 ML IVPB ONE (02:01)
[2019-02-03] MEDS ORDERED: VANCOMYCIN HCL 1,500 MG in DEXTROSE 5%-WATER - 500 ML IVPB ONE (02:04)
[2019-02-03] MEDS ORDERED: SODIUM CHLORIDE 1,000 ML IV SCH ×2 (02:30→13:13)
[2019-02-03] MEDS ORDERED: INSULIN (NOVOLOG) ASPART 100 UNITS/ML 10ML VIAL SQ ONE (02:41)
[2019-02-03] MEDS ORDERED: Insulin (LOG) Aspart 100 UNITS/ML VIAL SQ ONE (02:42)
[2019-02-03] MEDS ORDERED: VANCOMYCIN 1 GRAM (PRE-DOCKED) 1,000 MG/250 ML BAG IVPB ONE (02:44)
[2019-02-03] MEDS ORDERED: PIPERACILLIN/TAZOB 4.5 GM 4.5 GM/100 ML BAG IVPB ONE (02:44)
--- NOTE | 2019-02-03 02:56 | CONSULT ---
Consult Consult Specialty:: General Surgery Referred by:: Kimberlee Shen Reason for Consultation:: Tarun's gangrene - History of Present Illness Chief Complaint: right groin boil x5d that burst History of Present Illness: 43yo morbidly obese diabetic M, uncontrolled, not taking any home meds, has not seen a doctor since he came to ER last year, presented because of a boil in the right groin for the last 5 days, which burst yesterday, and has been draining and increasingly red and painful. For about a week, even before this started, he had noted foul-smelling urine and "bladder pain" with urination. He thinks it is worse when his "sugar is high," which he can tell because his eyes get irritated and he sometimes gets dizzy. He does not check glucose at home (no machine). No change in bowel habits. No subjective fever/chills, though he is always hot. In ER, he has wbc 17, is dehydrated by labs with glucose >300, pseudohyponatremia, and was tachy with temp 100. CT shows extensive soft tissue inflammation and edema in right groin/perineum/scrotum with incomplete imaging of the lower scrotum. He has gotten Clindamycin and IV fluids, Zosyn and Vanc are pending. Surgery was asked to assess for concern of Tarun's gangrene. He is seen and examined in ER holding. He is relatively comfortable. He ate about 3 hours ago. Voiding in urinal. - History Source History Provided By: Patient Limitations to Obtaining History: Language Barrier (Kazakh) - Past Medical History Gastrointestinal: Yes: Other (morbid obesity) Endocrine: Yes: Diabetes Mellitus - Past Surgical History Past Surgical History: Yes: Appendectomy - Alcohol/Substance Use Hx Alcohol Use: Yes (occasional) History of Substance Use: reports: None - Smoking History Smoking history: Former smoker Have you smoked in the past 12 months: No If you are a former smoker, when did you quit?: 20 years ago - Social History ADL: Independent Home Medications - Allergies Allergies/Adverse Reactions: Allergies Allergy/AdvReac Type Severity Reaction Status Date / Time No Known Allergies Allergy Verified 02/02/19 14:28 - Home Medications Home Medications: Ambulatory Orders NK [No Known Home Medication] 02/03/19 Family Medical History Family History: Unremarkable (noncontributory) Review of Systems - Review of Systems Constitutional: denies: Chills, Fever Eyes: denies: Blurred Vision, Recent Change in Vision HENT: denies: Difficult Swallowing, Throat Pain Neck: denies: Pain on Movement, Stiffness Cardiovascular: denies: Chest Pain, Palpitations Respiratory: denies: Cough, SOB Gastrointestinal: denies: Abdominal Pain, Constipation, Diarrhea, Nausea, Vomiting Genitourinary: reports: Dysuria, Testicular Pain, Other (foul-smelling urine). denies: Hematuria Musculoskeletal: denies: Back Pain, Joint Pain, Muscle Pain Integumentary: reports: Erythema, Wound, Other (drainage, with hpi) Neurological: denies: Dizziness, Headache Psychiatric: denies: Anxiety, Depression Physical Exam Vital Signs: Vital Signs Temperature 99.8 F H 02/02/19 20:29 Pulse Rate 105 H 02/02/19 20:29 Respiratory Rate 17 02/02/19 20:29 Blood Pressure 119/77 02/02/19 20:29 O2 Sat by Pulse Oximetry (%) 96 02/02/19 20:29 Constitutional: Yes: No Distress, Calm, Obese Eyes: Yes: EOM Intact. No: Conjunctiva Clear HENT: Yes: Atraumatic, Normocephalic Neck: Yes: Supple, Trachea Midline Cardiovascular: Yes: Tachycardia. No: Pulse Irregular Respiratory: Yes: Regular, CTA Bilaterally Gastrointestinal: Yes: Normal Bowel Sounds, Soft, Abdomen, Obese. No: Tenderness ...Rectal Exam: Yes: Deferred Renal/: Yes: Scrotal Edema (more right side, no palpable crepitus), Other ( tender R>L scrotum, tender onto penile shaft) Musculoskeletal: No: Joint Stiffness, Joint Swelling Extremities: No: Cool, Cyanosis Edema: No Peripheral Pulses WNL: Yes Integumentary: Yes: Erythema (right groin/perineum), Other (sloughing skin and purulent, foul-smelling drainage from right perineum/groin crease, no crepitus) . No: Jaundice Wound/Incision: Yes: Open to air, Draining (purulent with sloughing skin, right groin/perineum), Reddened Neurological: Yes: Alert, Oriented Psychiatric: Yes: Alert, Oriented Labs: CBC, BMP 02/02/19 18:20 02/02/19 18:20 CMP Sodium 131 mmol/L (136-145) L 02/02/19 18:20 Potassium 3.8 mmol/L (3.5-5.1) 02/02/19 18:20 Chloride 98 mmol/L (98-107) 02/02/19 18:20 Carbon Dioxide 24 mmol/L (21-32) 02/02/19 18:20 Anion Gap 10 MMOL/L (8-16) 02/02/19 18:20 BUN 11.3 mg/dL (7-18) 02/02/19 18:20 Creatinine 1.2 mg/dL (0.55-1.3) 02/02/19 18:20 Est GFR (CKD-EPI)AfAm 84.13 02/02/19 18:20 Est GFR (CKD-EPI)NonAf 72.59 02/02/19 18:20 POC Glucometer 333 UNITS (80-120) 02/03/19 01:28 Random Glucose 373 mg/dL (74-106) H 02/02/19 18:20 Lactic Acid 1.3 mmol/L (0.4-2.0) 02/03/19 01:15 Calcium 8.8 mg/dL (8.5-10.1) 02/02/19 18:20 Total Bilirubin 0.8 mg/dL (0.2-1) 02/02/19 18:20 AST 31 U/L (15-37) 02/02/19 18:20 ALT 62 U/L (13-61) H 02/02/19 18:20 Alkaline Phosphatase 140 U/L (45-117) H 02/02/19 18:20 Total Protein 7.2 g/dl (6.4-8.2) 02/02/19 18:20 Albumin 3.2 g/dl (3.4-5.0) L 02/02/19 18:20 INR, PTT INR 1.19 (0.83-1.09) H 02/02/19 18:20 Urine Test Results Urine Color Yellow 02/02/19 18:20 Urine Appearance Clear 02/02/19 18:20 Urine pH 5.5 (5.0-8.0) 02/02/19 18:20 Ur Specific [place] 1.044 (1.010-1.035) H 02/02/19 18:20 Urine Protein Negative (NEGATIVE) 02/02/19 18:20 Urine Glucose (UA) 3+ (NEGATIVE) H 02/02/19 18:20 Urine Ketones Negative (NEGATIVE) 02/02/19 18:20 Urine Blood Negative (NEGATIVE) 02/02/19 18:20 Urine Nitrite Negative (NEGATIVE) 02/02/19 18:20 Urine Bilirubin Negative (NEGATIVE) 02/02/19 18:20 Ur Leukocyte Esterase Negative (NEGATIVE) 02/02/19 18:20 Imaging - Results Cat Scan: Report Reviewed, Image Reviewed (extensive inflammatory changes right groin/perineum/right scrotum with fluid/edema, no drainable collection, no gross air in tissues) Problem List - Problems (1) Tarun's disease Assessment/Plan: admitted to medicine IV antibiotics - consult ID IV fluids - resuscitation and maintenance urology also seeing - Dr. Goodman will take him to OR for I&D/debridement available to help if needed likely will need ICU postop discussed with Dr. Martin in person discussed with Dr. 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
[2019-02-03] MEDS ORDERED: PIPERACILLIN/TAZOB 4.5 GM 4.5 GM in DEXTROSE 5%-WATER 100 ML IVPB SCH ×2 (03:00→09:00)
--- NOTE | 2019-02-03 04:09 | CONSULT ---
Consult - text type - Consultation Consultation Note: CC: right groin infection hpi: patient with history of diabetes with necrotic tissue in right groin producing paola pus. Patient discribes 3-4 day history of right groin pain and dysuria. He noted increased drainage from groin PE inurated inguinal mass with paola pus expressed/necrotic tissue present labs and ct scan reviewed imp natalie's gangrene vs. inguinal abscess in uncontrolled diabetetic
[2019-02-03] MEDS ORDERED: PROPOFOL 20 ML ONE (04:20)
[2019-02-03] MEDS ORDERED: SUCCINYLCHOLINE CHLORIDE 200 MG/10 ML SYRINGE ONE (04:20)
--- NOTE | 2019-02-03 05:26 | OP ---
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
[2019-02-03] MEDS ORDERED: ONDANSETRON 4 MG/2 ML VIAL IVPUSH PRN ×3 (05:49→23:26)
[2019-02-03] MEDS ORDERED: ACETAMINOPHEN 1000 MG/100 ML VIAL (NON FORMULARY) IVPB ONE ×3 (05:49→16:42)
[2019-02-03] MEDS ORDERED: ALBUTEROL SO4 0.083% IH SOL 2.5 MG/3 ML VIAL.NEB. NEB PRN ×3 (05:50→23:26)
[2019-02-03] MEDS ORDERED: ALBUTEROL SO4 0.083% IH SOL 2.5 MG/3 ML VIAL.NEB. NEB ONE (06:00)
[2019-02-03 09:37] LABS: BASO % 0.7 % (0-2.0); EOS % 0.3 % (0-4.5); HEMATOCRIT 38.7 % (35.4-49); HEMOGLOBIN 13.1 GM/dL (11.7-16.9); LYMPH % 12.1 % (8-40); MCH 28.8 pg (25.7-33.7); MCHC 33.8 g/dl (32.0-35.9); MEAN CELL VOLUME 85.2 fl (80-96); MEAN PLT VOLUME 7.3 fl (7.5-11.1); MONO % 12.4 % (3.8-10.2); NEUT % 74.5 % (42.8-82.8); PLATELET COUNT 246 K/MM3 (134-434); RBC 4.55 M/mm3 (4.00-5.60); RDW 13.6 % (11.9-15.9); WHITE BLOOD COUNT 14.2 K/mm3 (4.0-10.0)
[2019-02-03] MEDS ORDERED: MUPIROCIN 2% TOPICAL OINTMENT FOR DECOLONIZATION NS SCH ×2 (10:00→22:00)
[2019-02-03] MEDS ORDERED: CLINDAMYCIN 600MG PREMIX IVPB 600 MG/50 ML BAG IVPB SCH (10:00)
[2019-02-03 10:07] LABS: INR 1.31 (0.83-1.09); PROTHROMBIN TIME (PATIENT) 15.5 SEC (9.7-13.0)
[2019-02-03 10:09] LABS: BLOOD UREA NITROGEN 8.7 mg/dL (7-18); CALCIUM 7.8 mg/dL (8.5-10.1); CREATININE 0.9 mg/dL (0.55-1.3); MAGNESIUM 2.2 mg/dL (1.8-2.4); PHOSPHOROUS 3.3 mg/dL (2.5-4.9)
--- NOTE | 2019-02-03 10:22 | CON.ID ---
Consult Consult Specialty:: infectious disease Referred by:: hospitalist Reason for Consultation:: right inguinal abscess/natalie's gangrene - History of Present Illness Chief Complaint: right groin swelling and drainage for 5 days with fever History of Present Illness: 43 yo obese male with DM- not on meds- admitted from home with 5 day history of worsening right groin pain with drainage over the last 72 hours. fevers noted as well has taken augmentin daily for last 3 days nausea and vomiting yesterday imaging done after arrival in ED, concerning for early fornier's gangrens seen by urology and taken to the OR this am, he is s/p incision and drainage right inguinal abscess alert no complaints received vancomycin/zosyn/clindamycin in the ED - History Source History Provided By: Patient, Medical Record Limitations to Obtaining History: Language Barrier - Past Medical History Gastrointestinal: Yes: Other (morbid obesity) Endocrine: Yes: Diabetes Mellitus - Past Surgical History Past Surgical History: Yes: Appendectomy Additional Surgical History: right inguinal hernia repair?? - Alcohol/Substance Use Hx Alcohol Use: Yes (occasional) History of Substance Use: reports: None - Smoking History Smoking history: Former smoker Have you smoked in the past 12 months: No Aproximately how many cigarettes per day: 0 If you are a former smoker, when did you quit?: 20 years ago - Social History Usual Living Arrangement: Other (with sister) ADL: Independent Occupation: unemployed Place of : Other ([facility]) Home Medications - Allergies Allergies/Adverse Reactions: Allergies Allergy/AdvReac Type Severity Reaction Status Date / Time No Known Allergies Allergy Verified 02/02/19 14:28 - Home Medications Home Medications: Ambulatory Orders NK [No Known Home Medication] 02/03/19 Family Medical History Family Hx Cancer: Sister (breast cancer) Family Hx Diabetes: Mother Review of Systems - Review of Systems Constitutional: reports: Chills, Fever Eyes: reports: No Symptoms HENT: reports: No Symptoms. denies: Difficult Swallowing Neck: reports: No Symptoms Cardiovascular: reports: No Symptoms. denies: Chest Pain, Edema Respiratory: reports: No Symptoms. denies: Cough, SOB Gastrointestinal: reports: No Symptoms Genitourinary: reports: Testicular Swelling Physical Exam Vital Signs: Vital Signs Temperature 98.4 F 02/03/19 09:40 Pulse Rate 84 02/03/19 09:40 Respiratory Rate 20 02/03/19 09:40 Blood Pressure 120/68 02/03/19 09:40 O2 Sat by Pulse Oximetry (%) 97 02/03/19 09:40 Constitutional: Yes: Well Nourished, No Distress, Calm Eyes: Yes: Conjunctiva Clear, EOM Intact HENT: Yes: Atraumatic, Normocephalic. No: Thrush, Tonsillar Exudate Neck: Yes: Supple, Trachea Midline Cardiovascular: Yes: Regular Rate and Rhythm Respiratory: Yes: Regular, CTA Bilaterally Gastrointestinal: Yes: Normal Bowel Sounds, Soft Renal/: Yes: Other (right groin induration, +drainage from operative incision , no perineal induration, no pelvic) Edema: No Psychiatric: Yes: Alert, Oriented Labs: CBC, BMP 02/03/19 09:00 02/03/19 09:00 cultures pending Imaging - Results Chest X-ray: Report Reviewed Cat Scan: Report Reviewed Problem List - Problems (1) Groin abscess Code(s): L02.214 - CUTANEOUS ABSCESS OF GROIN (2) Diabetes type 2, uncontrolled Code(s): E11.65 - TYPE 2 DIABETES MELLITUS WITH HYPERGLYCEMIA Qualifiers: Glycemic state: with hyperglycemia Qualified Code(s): E11.65 - Type 2 diabetes mellitus with hyperglycemia (3) Morbid obesity Code(s): E66.01 - MORBID (SEVERE) OBESITY DUE TO EXCESS CALORIES Assessment/Plan s/p drainage of inguinal abscess by urology in the OR this am f/u cultures hemodynamically stable can continue vancomycin and zosyn at this time-needs MRSA,GNR and anaerobic coverage at this point follow vancomycin levels closely
[2019-02-03] MEDS ORDERED: PNEUMOC 13-VAL CONJ-DIP CRM/PF 0.5 ML DISP.SYRIN IM ONE (10:49)
--- NOTE | 2019-02-03 11:04 | CONSULT ---
Consultation: REQUESTING PROVIDER: Dr. Moreira CONSULT REQUEST:ICU monitoring HISTORY OF PRESENT ILLNESS: 43 y/o male with PMH of uncontrolled diabetes presents to the ED with complaints of fever, foul-smelling urine and a right groin boil that has been there for the past 5 days. patient states that for the past 5 days he has been having fevers, noticed that his urine was malodorous and he noticed the boil that began to develop-sunday he asked his son to pop the boil and bloody- yellow discharge was present, yesterday pain was so severe he came to the ED; abdominal/pelvis CT was done showing: IMPRESSION: Moderate amount of fluid and edema in the right groin consistent with soft tissue cellulitis infection. If there is a clinical concern for Tarun's gangrene infection of the scrotum, then further evaluation and workup with a CT Scan Of The Pelvis And Proximal Thighs Down To Below The Level Of The Identified Air Gap On The [id number] Armor Crewman Image Between The Legs Below The Level Of The Midline Soft Tissues Of The Scrotum And Medial Pelvis And Medial Proximal Thighs may be needed. Right groin nonspecific lymphadenopathy most likely reactive to infection. Mild hepatomegaly and steatosis. Dependent density in the gallbladder neck most likely due to sludge or cholelithiasis with moderate gallbladder distention. If there is a clinical indication further evaluation and workup with a ultrasound of the gallbladder may be needed. Mild nonspecific splenomegaly most likely due to mild portal venous hypertension. Mild diverticulosis without diverticulitis. Calcified granulomas in the prostate. Moderate bladder distention. Patient is now s/p I and D with debridement of the right groin abscess. REVIEW OF SYSTEMS: CONSTITUTIONAL: Absent: fever, chills, diaphoresis, generalized weakness, malaise, loss of appetite, weight change HEENT: Absent: rhinorrhea, nasal congestion, throat pain, throat swelling, difficulty swallowing, mouth swelling, ear pain, eye pain, visual changes CARDIOVASCULAR: Absent: chest pain, syncope, palpitations, irregular heart rate, lightheadedness , peripheral edema RESPIRATORY: Absent: cough, shortness of breath, dyspnea with exertion, orthopnea, wheezing, stridor, hemoptysis GASTROINTESTINAL: Absent: abdominal pain, abdominal distension, nausea, vomiting, diarrhea, constipation, melena, hematochezia GENITOURINARY: Present: gential pain, dysuria Absent: dysuria, frequency, urgency, hesitancy, hematuria, flank pain, genital pain MUSCULOSKELETAL: Absent: myalgia, arthralgia, joint swelling, back pain, neck pain SKIN: Absent: rash, itching, pallor HEMATOLOGIC/IMMUNOLOGIC: Absent: easy bleeding, easy bruising, lymphadenopathy, frequent infections ENDOCRINE: Absent: unexplained weight gain, unexplained weight loss, heat intolerance, cold intolerance NEUROLOGIC: Absent: headache, focal weakness or paresthesias, dizziness, unsteady gait, seizure, mental status changes, bladder or bowel incontinence PSYCHIATRIC: Absent: anxiety, depression, suicidal or homicidal ideation, hallucinations. PHYSICAL EXAMINATION Vital Signs - 24 hr 02/02/19 02/02/19 02/03/19 14:24 20:29 04:13 Temperature 98.8 F 99.8 F H 98.5 F Pulse Rate 120 H Pulse Rate [ 105 H 100 H Left Brachial] Respiratory 18 17 17 Rate Blood Pressure 139/92 Blood Pressure 119/77 117/76 [Left Arm] O2 Sat by Pulse 97 96 95 Oximetry (%) 02/03/19 02/03/19 02/03/19 05:38 05:45 06:00 Temperature 99.1 F Pulse Rate 100 H 101 H 106 H Pulse Rate [ Left Brachial] Respiratory 28 H 26 H 25 H Rate Blood Pressure 156/90 157/93 155/85 Blood Pressure [Left Arm] O2 Sat by Pulse 95 93 L Oximetry (%) 02/03/19 02/03/19 02/03/19 06:15 06:30 06:45 Temperature Pulse Rate 105 H 95 H 96 H Pulse Rate [ Left Brachial] Respiratory 23 H 23 H 23 H Rate Blood Pressure 128/67 119/66 120/64 Blood Pressure [Left Arm] O2 Sat by Pulse 96 96 94 L Oximetry (%) 02/03/19 02/03/19 02/03/19 07:00 07:15 07:30 Temperature 98.4 F Pulse Rate 92 H 94 H 89 Pulse Rate [ Left Brachial] Respiratory 23 H 23 H 21 H Rate Blood Pressure 112/62 110/61 118/64 Blood Pressure [Left Arm] O2 Sat by Pulse 95 94 L 96 Oximetry (%) 02/03/19 02/03/19 02/03/19 07:45 08:00 08:15 Temperature Pulse Rate 85 87 88 Pulse Rate [ Left Brachial] Respiratory 22 H 24 H 20 Rate Blood Pressure 126/67 112/58 L 122/70 Blood Pressure [Left Arm] O2 Sat by Pulse 96 97 97 Oximetry (%) 02/03/19 02/03/19 02/03/19 08:30 08:45 09:00 Temperature Pulse Rate 85 84 88 Pulse Rate [ Left Brachial] Respiratory 20 20 18 Rate Blood Pressure 123/70 118/67 117/69 Blood Pressure [Left Arm] O2 Sat by Pulse 97 97 97 Oximetry (%) 02/03/19 02/03/19 02/03/19 09:15 09:30 09:40 Temperature 98.4 F Pulse Rate 88 88 84 Pulse Rate [ Left Brachial] Respiratory 22 H 22 H 20 Rate Blood Pressure 113/67 114/58 L 120/68 Blood Pressure [Left Arm] O2 Sat by Pulse 95 95 97 Oximetry (%) 02/03/19 10:37 Temperature 98.4 F Pulse Rate 84 Pulse Rate [ Left Brachial] Respiratory 20 Rate Blood Pressure 117/81 Blood Pressure [Left Arm] O2 Sat by Pulse 97 Oximetry (%) GENERAL: Awake, alert, and fully oriented, in no acute distress. EYES:PEERLA; EOMI; no scleral icterus NECK: no JVD; no lymphadenopathy LUNGS: CTA B/L; no rales, rhonchi or wheezing HEART: Regular rate and rhythm, normal S1 and S2 without murmur, rub or gallop. ABDOMEN: Soft, NT/NS +BS in all 4 quadrants : erythema and lymphadenopathy in right groin; tender upon palpation; slight leakage of serosanguinous fluid MUSCULOSKELETAL: Normal range of motion at all joints. No bony deformities or tenderness. No CVA tenderness. EXTREMITIES: warm; well-perfused no clubbing/cyanosis or edema NEUROLOGICAL: Cranial nerves II-XII intact. Normal speech. Normal gait. SKIN: Warm, dry, normal turgor, no rashes or lesions noted. Laboratory Results - last 24 hr 02/02/19 02/02/19 02/02/19 18:02 18:20 18:20 WBC 17.6 H RBC 5.37 Hgb 15.4 Hct 45.3 MCV 84.3 MCH 28.6 MCHC 33.9 RDW 13.4 Plt Count 313 MPV 7.5 Absolute Neuts (auto) 12.4 H Neutrophils % 70.5 Lymphocytes % 13.9 Monocytes % 13.8 H Eosinophils % 0.6 D Basophils % 1.2 Nucleated RBC % 0 PT with INR INR PTT (Actin FS) VBG pH POC VBG pCO2 POC VBG pO2 VBG HCO3 VBG O2 Sat (Gutierrez) VBG Base Excess Sodium 131 L Potassium 3.8 Chloride 98 Carbon Dioxide 24 Anion Gap 10 BUN 11.3 Creatinine 1.2 Est GFR (CKD-EPI)AfAm 84.13 Est GFR (CKD-EPI)NonAf 72.59 POC Glucometer 386 Random Glucose 373 H Hemoglobin A1c % Lactic Acid Calcium 8.8 Phosphorus Magnesium Total Bilirubin 0.8 AST 31 ALT 62 H Alkaline Phosphatase 140 H Total Protein 7.2 Albumin 3.2 L Urine Color Urine Appearance Urine pH Ur Specific [place] Urine Protein Urine Glucose (UA) Urine Ketones Urine Blood Urine Nitrite Urine Bilirubin Urine Urobilinogen Ur Leukocyte Esterase Blood Type Antibody Screen 02/02/19 02/02/19 02/02/19 18:20 18:20 18:20 WBC RBC Hgb Hct MCV MCH MCHC RDW Plt Count MPV Absolute Neuts (auto) Neutrophils % Lymphocytes % Monocytes % Eosinophils % Basophils % Nucleated RBC % PT with INR 14.10 H INR 1.19 H PTT (Actin FS) VBG pH 7.42 H POC VBG pCO2 35.9 L POC VBG pO2 < 49 H VBG HCO3 23.0 VBG O2 Sat (Gutierrez) 78.0 VBG Base Excess -0.5 Sodium Potassium Chloride Carbon Dioxide Anion Gap BUN Creatinine Est GFR (CKD-EPI)AfAm Est GFR (CKD-EPI)NonAf POC Glucometer Random Glucose Hemoglobin A1c % Lactic Acid 3.6 H* Calcium Phosphorus Magnesium Total Bilirubin AST ALT Alkaline Phosphatase Total Protein Albumin Urine Color Urine Appearance Urine pH Ur Specific [place] Urine Protein Urine Glucose (UA) Urine Ketones Urine Blood Urine Nitrite Urine Bilirubin Urine Urobilinogen Ur Leukocyte Esterase Blood Type Antibody Screen 02/02/19 02/03/19 02/03/19 18:20 01:15 01:28 WBC RBC Hgb Hct MCV MCH MCHC RDW Plt Count MPV Absolute Neuts (auto) Neutrophils % Lymphocytes % Monocytes % Eosinophils % Basophils % Nucleated RBC % PT with INR INR PTT (Actin FS) VBG pH POC VBG pCO2 POC VBG pO2 VBG HCO3 VBG O2 Sat (Gutierrez) VBG Base Excess Sodium Potassium Chloride Carbon Dioxide Anion Gap BUN Creatinine Est GFR (CKD-EPI)AfAm Est GFR (CKD-EPI)NonAf POC Glucometer 333 Random Glucose Hemoglobin A1c % Lactic Acid 1.3 Calcium Phosphorus Magnesium Total Bilirubin AST ALT Alkaline Phosphatase Total Protein Albumin Urine Color Yellow Urine Appearance Clear Urine pH 5.5 Ur Specific [place] 1.044 H Urine Protein Negative Urine Glucose (UA) 3+ H Urine Ketones Negative Urine Blood Negative Urine Nitrite Negative Urine Bilirubin Negative Urine Urobilinogen 1.0 Ur Leukocyte Esterase Negative Blood Type Antibody Screen 02/03/19 02/03/19 02/03/19 02:55 03:50 03:50 WBC RBC Hgb Hct MCV MCH MCHC RDW Plt Count MPV Absolute Neuts (auto) Neutrophils % Lymphocytes % Monocytes % Eosinophils % Basophils % Nucleated RBC % PT with INR INR PTT (Actin FS) 42.0 H VBG pH POC VBG pCO2 POC VBG pO2 VBG HCO3 VBG O2 Sat (Gutierrez) VBG Base Excess Sodium Potassium Chloride Carbon Dioxide Anion Gap BUN Creatinine Est GFR (CKD-EPI)AfAm Est GFR (CKD-EPI)NonAf POC Glucometer 284 Random Glucose Hemoglobin A1c % Lactic Acid Calcium Phosphorus Magnesium Total Bilirubin AST ALT Alkaline Phosphatase Total Protein Albumin Urine Color Urine Appearance Urine pH Ur Specific [place] Urine Protein Urine Glucose (UA) Urine Ketones Urine Blood Urine Nitrite Urine Bilirubin Urine Urobilinogen Ur Leukocyte Esterase Blood Type O POSITIVE Antibody Screen Negative 02/03/19 02/03/19 02/03/19 06:53 09:00 09:00 WBC 14.2 H RBC 4.55 Hgb 13.1 Hct 38.7 MCV 85.2 MCH 28.8 MCHC 33.8 RDW 13.6 Plt Count 246 D MPV 7.3 L Absolute Neuts (auto) 10.6 H Neutrophils % 74.5 Lymphocytes % 12.1 Monocytes % 12.4 H Eosinophils % 0.3 Basophils % 0.7 Nucleated RBC % 0 PT with INR INR PTT (Actin FS) VBG pH POC VBG pCO2 POC VBG pO2 VBG HCO3 VBG O2 Sat (Gutierrez) VBG Base Excess Sodium 138 Potassium 4.0 Chloride 105 Carbon Dioxide 26 Anion Gap 7 L BUN 8.7 Creatinine 0.9 Est GFR (CKD-EPI)AfAm 119.13 Est GFR (CKD-EPI)NonAf 102.79 POC Glucometer 238 Random Glucose 222 H Hemoglobin A1c % Lactic Acid Calcium 7.8 L Phosphorus 3.3 Magnesium 2.2 Total Bilirubin AST ALT Alkaline Phosphatase Total Protein Albumin Urine Color Urine Appearance Urine pH Ur Specific [place] Urine Protein Urine Glucose (UA) Urine Ketones Urine Blood Urine Nitrite Urine Bilirubin Urine Urobilinogen Ur Leukocyte Esterase Blood Type Antibody Screen 02/03/19 02/03/19 02/03/19 09:00 09:00 09:00 WBC RBC Hgb Hct MCV MCH MCHC RDW Plt Count MPV Absolute Neuts (auto) Neutrophils % Lymphocytes % Monocytes % Eosinophils % Basophils % Nucleated RBC % PT with INR 15.50 H INR 1.31 H PTT (Actin FS) VBG pH POC VBG pCO2 POC VBG pO2 VBG HCO3 VBG O2 Sat (Gutierrez) VBG Base Excess Sodium Potassium Chloride Carbon Dioxide Anion Gap BUN Creatinine Est GFR (CKD-EPI)AfAm Est GFR (CKD-EPI)NonAf POC Glucometer Random Glucose Hemoglobin A1c % 11.6 H Lactic Acid Calcium Phosphorus Magnesium Total Bilirubin AST ALT Alkaline Phosphatase Total Protein Albumin Urine Color Urine Appearance Urine pH Ur Specific [place] Urine Protein Urine Glucose (UA) Urine Ketones Urine Blood Urine Nitrite Urine Bilirubin Urine Urobilinogen Ur Leukocyte Esterase Blood Type O POSITIVE Antibody Screen Active Medications Generic Name Dose Route Start Last Admin Trade Name Freq PRN Reason Stop Dose Admin Albuterol Sulfate 1 amp 02/03/19 05:50 Ventolin 0.083% Nebulizer Soln - NEB Q4H PRN SHORT OF BREATH/WHEEZING Chlorhexidine Gluconate 1 applic 02/03/19 22:00 Hibiclens For Decolonization - TP HS LUCIA Fentanyl 50 mcg 02/03/19 05:49 Sublimaze Injection - IVPUSH [id number] PRN PAIN-PACU ORDER X 4 DOSES ONLY Sodium Chloride 1,000 mls @ 150 mls/hr 02/03/19 02:30 02/03/19 03:04 Normal Saline - IV 150 mls/hr ASDIR LUCIA Administration Piperacillin Sod/Tazobactam 100 mls @ 200 mls/hr 02/03/19 10:45 Sod 4.5 gm/ Dextrose IVPB Q8H-IV LUCIA Protocol Vancomycin HCl 1,500 mg/ 250 mls @ 125 mls/hr 02/03/19 15:00 Dextrose IVPB Q12H LUCIA Protocol Insulin Aspart 1 vial 02/03/19 07:00 Novolog Vial Sliding Scale - SQ ACHS LUCIA Protocol Mupirocin 1 applic 02/03/19 10:00 Bactroban Ointment (For Decolonization) - NS 02/08/19 09:59 BID LUCIA Ondansetron HCl 4 mg 02/03/19 05:49 Zofran Injection IVPUSH Q6H PRN NAUSEA AND/OR VOMITING Pneumococcal 13-Valent Conj Vacc 0.5 ml 02/03/19 10:49 Prevnar 13 Syringe - IM 02/03/19 10:50 .ONCE ONE ASSESSMENT/PLAN: 43 y/o male with PMH of uncontrolled diabetes presents to the ED with complaints of fever, foul-smelling urine and a right groin boil who is now s/p incision and drainage of inguinal abscess with debridement. NEURO: AOX3 ; no issues Cardio: stable; no issues monitor hemodynamics Endocrine: poorly controlled DM HbA1c 11.6 ISS BGMS ACHS endocrine consult : s/p I and D with debridement of right inguinal abscess recs appreciated f/u gram stain and cultures patient received clindamycin x1 and on vanc/zosyn Infectious Disease: patient received clindamycin x1 and is on vanc(1.5 q12H) /zosyn(4.5 q8H) ID on board; recs appreciated f/u cultures and gram stain urine and blood cx pending monitor vanc levels F/E/N NS@150mls/hr monitor electrolytes diabetic diet dvt ppx: SCDS Dispo: We will continue to follow the patient. Thank you for this consultative opportunity. 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 - New Patient This patient is new to me today: Yes Date on this admission: 02/03/19 - Critical Care Critical Care patient: Yes Total Critical Care Time (in minutes): 35 Critical Care Statement: The care of this patient involved high complexity decision making to prevent further life threatening deterioration of the patient 's condition and/or to evaluate & treat vital organ system(s) failure or risk of failure. ATTENDING PHYSICIAN STATEMENT I saw and evaluated the patient. I reviewed the resident's note and discussed the case with the resident. I agree with the resident's findings and plan as documented. SUBJECTIVE: OBJECTIVE: ASSESSMENT AND PLAN:
[2019-02-03] MEDS ORDERED: PNEUMOCOCCAL 23 VACCINE 0.5 ML VIAL IM ONE (11:15)
[2019-02-03] MEDS: PIPERACILLIN/TAZOB 4.5 GM 4.5 GM in DEXTROSE 5%-WATER 100 ML IVPB SCH ×2 (11:21→19:16)
[2019-02-03] MEDS: INSULIN SLIDING SCALE (NOVOLOG) 1 VIAL SQ SCH ×4 (12:00→22:21)
--- NOTE | 2019-02-03 12:28 | PN ---
Teaching Attending Note Name of Resident: Nidhi Spain ATTENDING PHYSICIAN STATEMENT I saw and evaluated the patient. I reviewed the resident's note and discussed the case with the resident. I agree with the resident's findings and plan as documented. SUBJECTIVE: Patient seen and examined in the ICU. Awake and alert. No CP or SOB. Intake & Output 01/31/19 02/01/19 02/02/19 02/03/19 23:59 23:59 23:59 23:59 Intake Total 4150 Output Total 1180 Balance 2970 Weight 334 lb 334 lb Last Vital Signs Temp Pulse Resp BP Pulse Ox 98.4 F 84 20 117/81 97 02/03/19 10:37 02/03/19 10:37 02/03/19 11:48 02/03/19 10:37 02/03/19 11:48 Active Medications Albuterol Sulfate (Ventolin 0.083% Nebulizer Soln -) 1 amp NEB Q4H PRN PRN Reason: SHORT OF BREATH/WHEEZING Chlorhexidine Gluconate (Hibiclens For Decolonization -) 1 applic TP HS LUCIA Fentanyl (Sublimaze Injection -) 50 mcg IVPUSH [id number] PRN PRN Reason: PAIN-PACU ORDER X 4 DOSES ONLY Sodium Chloride (Normal Saline -) 1,000 mls @ 150 mls/hr IV ASDIR LUCIA Last Admin: 02/03/19 03:04 Dose: 150 mls/hr Piperacillin Sod/Tazobactam (Sod 4.5 gm/ Dextrose) 100 mls @ 200 mls/hr IVPB Q8H-IV LUCIA; Protocol Last Admin: 02/03/19 11:21 Dose: Not Given Vancomycin HCl 1,500 mg/ (Dextrose) 500 mls @ 250 mls/hr IVPB Q12H LUCIA; Protocol Insulin Aspart (Novolog Vial Sliding Scale -) 1 vial SQ ACHS LUCIA; Protocol Mupirocin (Bactroban Ointment (For Decolonization) -) 1 applic NS BID LUCIA Stop: 02/08/19 09:59 Ondansetron HCl (Zofran Injection) 4 mg IVPUSH Q6H PRN PRN Reason: NAUSEA AND/OR VOMITING PHYSICAL EXAMINATION GENERAL: Awake, alert, and fully oriented, in no acute distress. EYES: no scleral icterus NECK: no JVD; no lymphadenopathy LUNGS: CTA B/L HEART: Regular rate and rhythm, normal S1 and S2 without murmur, rub or gallop. ABDOMEN: Soft, NT/NS +BS in all 4 quadrants : erythema and lymphadenopathy in right groin; (+) tenderness; (+) slight drainage of serosanguinous fluid MUSCULOSKELETAL: Normal range of motion at all joints. No bony deformities or tenderness. No CVA tenderness. EXTREMITIES: warm; well-perfused no clubbing/cyanosis or edema NEUROLOGICAL: Non-focal Laboratory Results - last 24 hr 02/02/19 02/02/19 02/02/19 18:02 18:20 18:20 WBC 17.6 H RBC 5.37 Hgb 15.4 Hct 45.3 MCV 84.3 MCH 28.6 MCHC 33.9 RDW 13.4 Plt Count 313 MPV 7.5 Absolute Neuts (auto) 12.4 H Neutrophils % 70.5 Lymphocytes % 13.9 Monocytes % 13.8 H Eosinophils % 0.6 D Basophils % 1.2 Nucleated RBC % 0 PT with INR INR PTT (Actin FS) VBG pH POC VBG pCO2 POC VBG pO2 VBG HCO3 VBG O2 Sat (Gutierrez) VBG Base Excess Sodium 131 L Potassium 3.8 Chloride 98 Carbon Dioxide 24 Anion Gap 10 BUN 11.3 Creatinine 1.2 Est GFR (CKD-EPI)AfAm 84.13 Est GFR (CKD-EPI)NonAf 72.59 POC Glucometer 386 Random Glucose 373 H Hemoglobin A1c % Lactic Acid Calcium 8.8 Phosphorus Magnesium Total Bilirubin 0.8 AST 31 ALT 62 H Alkaline Phosphatase 140 H Total Protein 7.2 Albumin 3.2 L Urine Color Urine Appearance Urine pH Ur Specific [place] Urine Protein Urine Glucose (UA) Urine Ketones Urine Blood Urine Nitrite Urine Bilirubin Urine Urobilinogen Ur Leukocyte Esterase Blood Type Antibody Screen 02/02/19 02/02/19 02/02/19 18:20 18:20 18:20 WBC RBC Hgb Hct MCV MCH MCHC RDW Plt Count MPV Absolute Neuts (auto) Neutrophils % Lymphocytes % Monocytes % Eosinophils % Basophils % Nucleated RBC % PT with INR 14.10 H INR 1.19 H PTT (Actin FS) VBG pH 7.42 H POC VBG pCO2 35.9 L POC VBG pO2 < 49 H VBG HCO3 23.0 VBG O2 Sat (Gutierrez) 78.0 VBG Base Excess -0.5 Sodium Potassium Chloride Carbon Dioxide Anion Gap BUN Creatinine Est GFR (CKD-EPI)AfAm Est GFR (CKD-EPI)NonAf POC Glucometer Random Glucose Hemoglobin A1c % Lactic Acid 3.6 H* Calcium Phosphorus Magnesium Total Bilirubin AST ALT Alkaline Phosphatase Total Protein Albumin Urine Color Urine Appearance Urine pH Ur Specific [place] Urine Protein Urine Glucose (UA) Urine Ketones Urine Blood Urine Nitrite Urine Bilirubin Urine Urobilinogen Ur Leukocyte Esterase Blood Type Antibody Screen 02/02/19 02/03/19 02/03/19 18:20 01:15 01:28 WBC RBC Hgb Hct MCV MCH MCHC RDW Plt Count MPV Absolute Neuts (auto) Neutrophils % Lymphocytes % Monocytes % Eosinophils % Basophils % Nucleated RBC % PT with INR INR PTT (Actin FS) VBG pH POC VBG pCO2 POC VBG pO2 VBG HCO3 VBG O2 Sat (Gutierrez) VBG Base Excess Sodium Potassium Chloride Carbon Dioxide Anion Gap BUN Creatinine Est GFR (CKD-EPI)AfAm Est GFR (CKD-EPI)NonAf POC Glucometer 333 Random Glucose Hemoglobin A1c % Lactic Acid 1.3 Calcium Phosphorus Magnesium Total Bilirubin AST ALT Alkaline Phosphatase Total Protein Albumin Urine Color Yellow Urine Appearance Clear Urine pH 5.5 Ur Specific [place] 1.044 H Urine Protein Negative Urine Glucose (UA) 3+ H Urine Ketones Negative Urine Blood Negative Urine Nitrite Negative Urine Bilirubin Negative Urine Urobilinogen 1.0 Ur Leukocyte Esterase Negative Blood Type Antibody Screen 02/03/19 02/03/19 02/03/19 02:55 03:50 03:50 WBC RBC Hgb Hct MCV MCH MCHC RDW Plt Count MPV Absolute Neuts (auto) Neutrophils % Lymphocytes % Monocytes % Eosinophils % Basophils % Nucleated RBC % PT with INR INR PTT (Actin FS) 42.0 H VBG pH POC VBG pCO2 POC VBG pO2 VBG HCO3 VBG O2 Sat (Gutierrez) VBG Base Excess Sodium Potassium Chloride Carbon Dioxide Anion Gap BUN Creatinine Est GFR (CKD-EPI)AfAm Est GFR (CKD-EPI)NonAf POC Glucometer 284 Random Glucose Hemoglobin A1c % Lactic Acid Calcium Phosphorus Magnesium Total Bilirubin AST ALT Alkaline Phosphatase Total Protein Albumin Urine Color Urine Appearance Urine pH Ur Specific [place] Urine Protein Urine Glucose (UA) Urine Ketones Urine Blood Urine Nitrite Urine Bilirubin Urine Urobilinogen Ur Leukocyte Esterase Blood Type O POSITIVE Antibody Screen Negative 02/03/19 02/03/19 02/03/19 06:53 09:00 09:00 WBC 14.2 H RBC 4.55 Hgb 13.1 Hct 38.7 MCV 85.2 MCH 28.8 MCHC 33.8 RDW 13.6 Plt Count 246 D MPV 7.3 L Absolute Neuts (auto) 10.6 H Neutrophils % 74.5 Lymphocytes % 12.1 Monocytes % 12.4 H Eosinophils % 0.3 Basophils % 0.7 Nucleated RBC % 0 PT with INR INR PTT (Actin FS) VBG pH POC VBG pCO2 POC VBG pO2 VBG HCO3 VBG O2 Sat (Gutierrez) VBG Base Excess Sodium 138 Potassium 4.0 Chloride 105 Carbon Dioxide 26 Anion Gap 7 L BUN 8.7 Creatinine 0.9 Est GFR (CKD-EPI)AfAm 119.13 Est GFR (CKD-EPI)NonAf 102.79 POC Glucometer 238 Random Glucose 222 H Hemoglobin A1c % Lactic Acid Calcium 7.8 L Phosphorus 3.3 Magnesium 2.2 Total Bilirubin AST ALT Alkaline Phosphatase Total Protein Albumin Urine Color Urine Appearance Urine pH Ur Specific [place] Urine Protein Urine Glucose (UA) Urine Ketones Urine Blood Urine Nitrite Urine Bilirubin Urine Urobilinogen Ur Leukocyte Esterase Blood Type Antibody Screen 02/03/19 02/03/19 02/03/19 09:00 09:00 09:00 WBC RBC Hgb Hct MCV MCH MCHC RDW Plt Count MPV Absolute Neuts (auto) Neutrophils % Lymphocytes % Monocytes % Eosinophils % Basophils % Nucleated RBC % PT with INR 15.50 H INR 1.31 H PTT (Actin FS) VBG pH POC VBG pCO2 POC VBG pO2 VBG HCO3 VBG O2 Sat (Gutierrez) VBG Base Excess Sodium Potassium Chloride Carbon Dioxide Anion Gap BUN Creatinine Est GFR (CKD-EPI)AfAm Est GFR (CKD-EPI)NonAf POC Glucometer Random Glucose Hemoglobin A1c % 11.6 H Lactic Acid Calcium Phosphorus Magnesium Total Bilirubin AST ALT Alkaline Phosphatase Total Protein Albumin Urine Color Urine Appearance Urine pH Ur Specific [place] Urine Protein Urine Glucose (UA) Urine Ketones Urine Blood Urine Nitrite Urine Bilirubin Urine Urobilinogen Ur Leukocyte Esterase Blood Type O POSITIVE Antibody Screen ASSESSMENT/PLAN: POD #0: Right inguinal abscess drainage and debridement Uncontrolled DM Possible OSAS ABX per ID Local wound care per surgery O2 as needed Glycemic control VTE prophylaxis Follow cultures IVF PO as tolerated Formal sleep testing after DC 24 hours ICU monitoring requested Dr Carvajal
--- NOTE | 2019-02-03 13:13 | PN ---
Teaching Attending Note Name of Resident: Varghese Bee ATTENDING PHYSICIAN STATEMENT I saw and evaluated the patient. I reviewed the resident's note and discussed the case with the resident. I agree with the resident's findings and plan as documented. SUBJECTIVE: Comfortable, no complaints. No fevers/chills. OBJECTIVE: Afebrile, Tmax 99.8, Hemodynamically Stable Last Vital Signs Temp Pulse Resp BP Pulse Ox 98.4 F 76 20 100/50 L 97 02/03/19 10:37 02/03/19 12:00 02/03/19 12:00 02/03/19 12:02/03/19 11:48 HEENT - Atramatic, Normocephalic. Heart - S1, S2, RRR Lungs - clear to auscultation Abdomen - High BMI, Soft, non-tender. Bowel Sounds normal. - R groin I and D site dressed. Extremities - mild edema, no calf tenderness. Neuro - AAO x 3. Tone/Power normal. Laboratory Results - last 24 hr 02/02/19 02/02/19 02/02/19 18:02 18:20 18:20 WBC 17.6 H RBC 5.37 Hgb 15.4 Hct 45.3 MCV 84.3 MCH 28.6 MCHC 33.9 RDW 13.4 Plt Count 313 MPV 7.5 Absolute Neuts (auto) 12.4 H Neutrophils % 70.5 Lymphocytes % 13.9 Monocytes % 13.8 H Eosinophils % 0.6 D Basophils % 1.2 Nucleated RBC % 0 PT with INR INR PTT (Actin FS) VBG pH POC VBG pCO2 POC VBG pO2 VBG HCO3 VBG O2 Sat (Gutierrez) VBG Base Excess Sodium 131 L Potassium 3.8 Chloride 98 Carbon Dioxide 24 Anion Gap 10 BUN 11.3 Creatinine 1.2 Est GFR (CKD-EPI)AfAm 84.13 Est GFR (CKD-EPI)NonAf 72.59 POC Glucometer 386 Random Glucose 373 H Hemoglobin A1c % Lactic Acid Calcium 8.8 Phosphorus Magnesium Total Bilirubin 0.8 AST 31 ALT 62 H Alkaline Phosphatase 140 H Total Protein 7.2 Albumin 3.2 L Urine Color Urine Appearance Urine pH Ur Specific [place] Urine Protein Urine Glucose (UA) Urine Ketones Urine Blood Urine Nitrite Urine Bilirubin Urine Urobilinogen Ur Leukocyte Esterase Blood Type Antibody Screen 02/02/19 02/02/1919 18:20 18:20 18:20 WBC RBC Hgb Hct MCV MCH MCHC RDW Plt Count MPV Absolute Neuts (auto) Neutrophils % Lymphocytes % Monocytes % Eosinophils % Basophils % Nucleated RBC % PT with INR 14.10 H INR 1.19 H PTT (Actin FS) VBG pH 7.42 H POC VBG pCO2 35.9 L POC VBG pO2 < 49 H VBG HCO3 23.0 VBG O2 Sat (Gutierrez) 78.0 VBG Base Excess -0.5 Sodium Potassium Chloride Carbon Dioxide Anion Gap BUN Creatinine Est GFR (CKD-EPI)AfAm Est GFR (CKD-EPI)NonAf POC Glucometer Random Glucose Hemoglobin A1c % Lactic Acid 3.6 H* Calcium Phosphorus Magnesium Total Bilirubin AST ALT Alkaline Phosphatase Total Protein Albumin Urine Color Urine Appearance Urine pH Ur Specific [place] Urine Protein Urine Glucose (UA) Urine Ketones Urine Blood Urine Nitrite Urine Bilirubin Urine Urobilinogen Ur Leukocyte Esterase Blood Type Antibody Screen 02/02/19 02/03/19 02/03/19 18:20 01:15 01:28 WBC RBC Hgb Hct MCV MCH MCHC RDW Plt Count MPV Absolute Neuts (auto) Neutrophils % Lymphocytes % Monocytes % Eosinophils % Basophils % Nucleated RBC % PT with INR INR PTT (Actin FS) VBG pH POC VBG pCO2 POC VBG pO2 VBG HCO3 VBG O2 Sat (Gutierrez) VBG Base Excess Sodium Potassium Chloride Carbon Dioxide Anion Gap BUN Creatinine Est GFR (CKD-EPI)AfAm Est GFR (CKD-EPI)NonAf POC Glucometer 333 Random Glucose Hemoglobin A1c % Lactic Acid 1.3 Calcium Phosphorus Magnesium Total Bilirubin AST ALT Alkaline Phosphatase Total Protein Albumin Urine Color Yellow Urine Appearance Clear Urine pH 5.5 Ur Specific [place] 1.044 H Urine Protein Negative Urine Glucose (UA) 3+ H Urine Ketones Negative Urine Blood Negative Urine Nitrite Negative Urine Bilirubin Negative Urine Urobilinogen 1.0 Ur Leukocyte Esterase Negative Blood Type Antibody Screen 02/03/19 02/03/19 02/03/19 02:55 03:50 03:50 WBC RBC Hgb Hct MCV MCH MCHC RDW Plt Count MPV Absolute Neuts (auto) Neutrophils % Lymphocytes % Monocytes % Eosinophils % Basophils % Nucleated RBC % PT with INR INR PTT (Actin FS) 42.0 H VBG pH POC VBG pCO2 POC VBG pO2 VBG HCO3 VBG O2 Sat (Gutierrez) VBG Base Excess Sodium Potassium Chloride Carbon Dioxide Anion Gap BUN Creatinine Est GFR (CKD-EPI)AfAm Est GFR (CKD-EPI)NonAf POC Glucometer 284 Random Glucose Hemoglobin A1c % Lactic Acid Calcium Phosphorus Magnesium Total Bilirubin AST ALT Alkaline Phosphatase Total Protein Albumin Urine Color Urine Appearance Urine pH Ur Specific [place] Urine Protein Urine Glucose (UA) Urine Ketones Urine Blood Urine Nitrite Urine Bilirubin Urine Urobilinogen Ur Leukocyte Esterase Blood Type O POSITIVE Antibody Screen Negative 02/03/19 02/03/19 02/03/19 06:53 09:00 09:00 WBC 14.2 H RBC 4.55 Hgb 13.1 Hct 38.7 MCV 85.2 MCH 28.8 MCHC 33.8 RDW 13.6 Plt Count 246 D MPV 7.3 L Absolute Neuts (auto) 10.6 H Neutrophils % 74.5 Lymphocytes % 12.1 Monocytes % 12.4 H Eosinophils % 0.3 Basophils % 0.7 Nucleated RBC % 0 PT with INR INR PTT (Actin FS) VBG pH POC VBG pCO2 POC VBG pO2 VBG HCO3 VBG O2 Sat (Gutierrez) VBG Base Excess Sodium 138 Potassium 4.0 Chloride 105 Carbon Dioxide 26 Anion Gap 7 L BUN 8.7 Creatinine 0.9 Est GFR (CKD-EPI)AfAm 119.13 Est GFR (CKD-EPI)NonAf 102.79 POC Glucometer 238 Random Glucose 222 H Hemoglobin A1c % Lactic Acid Calcium 7.8 L Phosphorus 3.3 Magnesium 2.2 Total Bilirubin AST ALT Alkaline Phosphatase Total Protein Albumin Urine Color Urine Appearance Urine pH Ur Specific [place] Urine Protein Urine Glucose (UA) Urine Ketones Urine Blood Urine Nitrite Urine Bilirubin Urine Urobilinogen Ur Leukocyte Esterase Blood Type Antibody Screen 02/03/19 02/03/19 02/03/19 09:00 09:00 09:00 WBC RBC Hgb Hct MCV MCH MCHC RDW Plt Count MPV Absolute Neuts (auto) Neutrophils % Lymphocytes % Monocytes % Eosinophils % Basophils % Nucleated RBC % PT with INR 15.50 H INR 1.31 H PTT (Actin FS) VBG pH POC VBG pCO2 POC VBG pO2 VBG HCO3 VBG O2 Sat (Gutierrez) VBG Base Excess Sodium Potassium Chloride Carbon Dioxide Anion Gap BUN Creatinine Est GFR (CKD-EPI)AfAm Est GFR (CKD-EPI)NonAf POC Glucometer Random Glucose Hemoglobin A1c % 11.6 H Lactic Acid Calcium Phosphorus Magnesium Total Bilirubin AST ALT Alkaline Phosphatase Total Protein Albumin Urine Color Urine Appearance Urine pH Ur Specific [place] Urine Protein Urine Glucose (UA) Urine Ketones Urine Blood Urine Nitrite Urine Bilirubin Urine Urobilinogen Ur Leukocyte Esterase Blood Type O POSITIVE Antibody Screen 02/03/19 12:30 WBC RBC Hgb Hct MCV MCH MCHC RDW Plt Count MPV Absolute Neuts (auto) Neutrophils % Lymphocytes % Monocytes % Eosinophils % Basophils % Nucleated RBC % PT with INR INR PTT (Actin FS) VBG pH POC VBG pCO2 POC VBG pO2 VBG HCO3 VBG O2 Sat (Gutierrez) VBG Base Excess Sodium Potassium Chloride Carbon Dioxide Anion Gap BUN Creatinine Est GFR (CKD-EPI)AfAm Est GFR (CKD-EPI)NonAf POC Glucometer 221 Random Glucose Hemoglobin A1c % Lactic Acid Calcium Phosphorus Magnesium Total Bilirubin AST ALT Alkaline Phosphatase Total Protein Albumin Urine Color Urine Appearance Urine pH Ur Specific [place] Urine Protein Urine Glucose (UA) Urine Ketones Urine Blood Urine Nitrite Urine Bilirubin Urine Urobilinogen Ur Leukocyte Esterase Blood Type Antibody Screen Current Medications Generic Name Dose Route Start Last Admin Trade Name Freq PRN Reason Stop Dose Admin Albuterol Sulfate 1 amp 02/03/19 05:50 Ventolin 0.083% Nebulizer Soln - NEB Q4H PRN SHORT OF BREATH/WHEEZING Chlorhexidine Gluconate 1 applic 02/03/19 22:00 Hibiclens For Decolonization - TP HS LUCIA Fentanyl 50 mcg 02/03/19 05:49 Sublimaze Injection - IVPUSH [id number] PRN PAIN-PACU ORDER X 4 DOSES ONLY Sodium Chloride 1,000 mls @ 150 mls/hr 02/03/19 02:30 02/03/19 03:04 Normal Saline - IV 150 mls/hr ASDIR LUCIA Administration Piperacillin Sod/Tazobactam 100 mls @ 200 mls/hr 02/03/19 10:45 02/03/19 11: 21 Sod 4.5 gm/ Dextrose IVPB Not Given Q8H-IV LUCIA Protocol Vancomycin HCl 1,500 mg/ 500 mls @ 250 mls/hr 02/03/19 15:00 Dextrose IVPB Q12H LUCIA Protocol Insulin Aspart 1 vial 02/03/19 07:00 Novolog Vial Sliding Scale - SQ ACHS LUCIA Protocol Mupirocin 1 applic 02/03/19 10:00 Bactroban Ointment (For Decolonization) - NS 02/08/19 09:59 BID LUCIA Ondansetron HCl 4 mg 02/03/19 05:49 Zofran Injection IVPUSH Q6H PRN NAUSEA AND/OR VOMITING Home Medications Medication Instructions Recorded NK [No Known Home Medication] 02/03/19 ASSESSMENT AND PLAN: 43 year old male with morbid obesity, DM 2 (uncontrolled), presented with R groin and perineal pain for 4-5/7 with small groin abscess, worsening redness and difficulty urinating. CT A/P - Mild basilar atelectasis. Mild hepatomegaly and steatosis. Moderate amount of fluid and edema in the right groin consistent with soft tissue cellulitis infection. Right groin nonspecific lymphadenopathy most likely reactive to infection. 1. Sepsis secondary to R groin Cellulitis/Tarun's Gangrene Sepsis resolved. Lactate normalized. Tachycardia resolved. Leukocytosis improving. Blood cultures/Wound/Surgical Cx pending Afebrile, Hemodynamically Stable. POD 0 s/p I and D R groin abscess and Debridement by Urology Continue Zosyn/Vanco ID consulted. IV hydration. 2. DM 2, uncontrolled, A1c 11.6 Poorly compliant with home meds. Maintain on insulin sliding scale. 3. Calcified granulomas in the prostate QuantiFERON gold sent CXR clear DVT Px - Heparin SQ.
[2019-02-03] MEDS: HEPARIN NA (PORCINE) 5,000 UNITS/ML 1ML VIAL SQ SCH ×2 (14:00→22:21)
[2019-02-03] MEDS ORDERED: VANCOMYCIN HCL 1,500 MG in DEXTROSE 5%-WATER - 500 ML IVPB SCH (15:00)
[2019-02-03] MEDS ORDERED: ACETAMINOPHEN 325 MG TABLET (FP) PO PRN (15:07)
--- NOTE | 2019-02-03 16:15 | PN ---
Physical Exam: SUBJECTIVE: Patient seen and examined s/p I&D procedure with Urology. Patient states pain is better after procedure. Wound left open for drainage with Iodoform packing and dressing. Admitted to ICU for 24 hours of post-op monitoring. OBJECTIVE: Vital Signs Period Temp Pulse Resp BP Sys/Lawson Pulse Ox Last 24 Hr 98.4 F-99.8 F 76-106 17-28 100-157/50-93 93-97 GENERAL: The patient is awake, alert, and fully oriented, in no acute distress. HEAD: Normal with no signs of trauma EYES: EOMI, no scleral icterus ENT: Moist mucous membranes NECK: Trachea midline, supple LUNGS: Breath sounds equal, clear to auscultation bilaterally, no wheezes, no crackles, no accessory muscle use. HEART: Regular rate and rhythm, S1, S2 without murmur, rub or gallop. ABDOMEN: Soft, nontender, nondistended, normoactive bowel sounds, no guarding, no rebound, no hepatosplenomegaly, no masses. : Open wound covered with dressing. erythema and swelling of the right groin. Leaking serosanguinous fluid. EXTREMITIES: 2+ pulses, warm NEUROLOGICAL: Normal speech, gait not observed. sensation intact throughout PSYCH: appropriate mood and affect Laboratory Results - last 24 hr 02/02/19 02/02/19 02/02/19 18:02 18:20 18:20 WBC 17.6 H RBC 5.37 Hgb 15.4 Hct 45.3 MCV 84.3 MCH 28.6 MCHC 33.9 RDW 13.4 Plt Count 313 MPV 7.5 Absolute Neuts (auto) 12.4 H Neutrophils % 70.5 Lymphocytes % 13.9 Monocytes % 13.8 H Eosinophils % 0.6 D Basophils % 1.2 Nucleated RBC % 0 PT with INR INR PTT (Actin FS) VBG pH POC VBG pCO2 POC VBG pO2 VBG HCO3 VBG O2 Sat (Gutierrez) VBG Base Excess Sodium 131 L Potassium 3.8 Chloride 98 Carbon Dioxide 24 Anion Gap 10 BUN 11.3 Creatinine 1.2 Est GFR (CKD-EPI)AfAm 84.13 Est GFR (CKD-EPI)NonAf 72.59 POC Glucometer 386 Random Glucose 373 H Hemoglobin A1c % Lactic Acid Calcium 8.8 Phosphorus Magnesium Total Bilirubin 0.8 AST 31 ALT 62 H Alkaline Phosphatase 140 H Total Protein 7.2 Albumin 3.2 L Urine Color Urine Appearance Urine pH Ur Specific [place] Urine Protein Urine Glucose (UA) Urine Ketones Urine Blood Urine Nitrite Urine Bilirubin Urine Urobilinogen Ur Leukocyte Esterase Blood Type Antibody Screen 02/02/19 02/02/19 02/02/19 18:20 18:20 18:20 WBC RBC Hgb Hct MCV MCH MCHC RDW Plt Count MPV Absolute Neuts (auto) Neutrophils % Lymphocytes % Monocytes % Eosinophils % Basophils % Nucleated RBC % PT with INR 14.10 H INR 1.19 H PTT (Actin FS) VBG pH 7.42 H POC VBG pCO2 35.9 L POC VBG pO2 < 49 H VBG HCO3 23.0 VBG O2 Sat (Gutierrez) 78.0 VBG Base Excess -0.5 Sodium Potassium Chloride Carbon Dioxide Anion Gap BUN Creatinine Est GFR (CKD-EPI)AfAm Est GFR (CKD-EPI)NonAf POC Glucometer Random Glucose Hemoglobin A1c % Lactic Acid 3.6 H* Calcium Phosphorus Magnesium Total Bilirubin AST ALT Alkaline Phosphatase Total Protein Albumin Urine Color Urine Appearance Urine pH Ur Specific [place] Urine Protein Urine Glucose (UA) Urine Ketones Urine Blood Urine Nitrite Urine Bilirubin Urine Urobilinogen Ur Leukocyte Esterase Blood Type Antibody Screen 02/02/19 02/03/19 02/03/19 18:20 01:15 01:28 WBC RBC Hgb Hct MCV MCH MCHC RDW Plt Count MPV Absolute Neuts (auto) Neutrophils % Lymphocytes % Monocytes % Eosinophils % Basophils % Nucleated RBC % PT with INR INR PTT (Actin FS) VBG pH POC VBG pCO2 POC VBG pO2 VBG HCO3 VBG O2 Sat (Gutierrez) VBG Base Excess Sodium Potassium Chloride Carbon Dioxide Anion Gap BUN Creatinine Est GFR (CKD-EPI)AfAm Est GFR (CKD-EPI)NonAf POC Glucometer 333 Random Glucose Hemoglobin A1c % Lactic Acid 1.3 Calcium Phosphorus Magnesium Total Bilirubin AST ALT Alkaline Phosphatase Total Protein Albumin Urine Color Yellow Urine Appearance Clear Urine pH 5.5 Ur Specific [place] 1.044 H Urine Protein Negative Urine Glucose (UA) 3+ H Urine Ketones Negative Urine Blood Negative Urine Nitrite Negative Urine Bilirubin Negative Urine Urobilinogen 1.0 Ur Leukocyte Esterase Negative Blood Type Antibody Screen 02/03/19 02/03/19 02/03/19 02:55 03:50 03:50 WBC RBC Hgb Hct MCV MCH MCHC RDW Plt Count MPV Absolute Neuts (auto) Neutrophils % Lymphocytes % Monocytes % Eosinophils % Basophils % Nucleated RBC % PT with INR INR PTT (Actin FS) 42.0 H VBG pH POC VBG pCO2 POC VBG pO2 VBG HCO3 VBG O2 Sat (Gutierrez) VBG Base Excess Sodium Potassium Chloride Carbon Dioxide Anion Gap BUN Creatinine Est GFR (CKD-EPI)AfAm Est GFR (CKD-EPI)NonAf POC Glucometer 284 Random Glucose Hemoglobin A1c % Lactic Acid Calcium Phosphorus Magnesium Total Bilirubin AST ALT Alkaline Phosphatase Total Protein Albumin Urine Color Urine Appearance Urine pH Ur Specific [place] Urine Protein Urine Glucose (UA) Urine Ketones Urine Blood Urine Nitrite Urine Bilirubin Urine Urobilinogen Ur Leukocyte Esterase Blood Type O POSITIVE Antibody Screen Negative 02/03/19 02/03/19 02/03/19 06:53 09:00 09:00 WBC 14.2 H RBC 4.55 Hgb 13.1 Hct 38.7 MCV 85.2 MCH 28.8 MCHC 33.8 RDW 13.6 Plt Count 246 D MPV 7.3 L Absolute Neuts (auto) 10.6 H Neutrophils % 74.5 Lymphocytes % 12.1 Monocytes % 12.4 H Eosinophils % 0.3 Basophils % 0.7 Nucleated RBC % 0 PT with INR INR PTT (Actin FS) VBG pH POC VBG pCO2 POC VBG pO2 VBG HCO3 VBG O2 Sat (Gutierrez) VBG Base Excess Sodium 138 Potassium 4.0 Chloride 105 Carbon Dioxide 26 Anion Gap 7 L BUN 8.7 Creatinine 0.9 Est GFR (CKD-EPI)AfAm 119.13 Est GFR (CKD-EPI)NonAf 102.79 POC Glucometer 238 Random Glucose 222 H Hemoglobin A1c % Lactic Acid Calcium 7.8 L Phosphorus 3.3 Magnesium 2.2 Total Bilirubin AST ALT Alkaline Phosphatase Total Protein Albumin Urine Color Urine Appearance Urine pH Ur Specific [place] Urine Protein Urine Glucose (UA) Urine Ketones Urine Blood Urine Nitrite Urine Bilirubin Urine Urobilinogen Ur Leukocyte Esterase Blood Type Antibody Screen 02/03/19 02/03/19 02/03/19 09:00 09:00 09:00 WBC RBC Hgb Hct MCV MCH MCHC RDW Plt Count MPV Absolute Neuts (auto) Neutrophils % Lymphocytes % Monocytes % Eosinophils % Basophils % Nucleated RBC % PT with INR 15.50 H INR 1.31 H PTT (Actin FS) VBG pH POC VBG pCO2 POC VBG pO2 VBG HCO3 VBG O2 Sat (Gutierrez) VBG Base Excess Sodium Potassium Chloride Carbon Dioxide Anion Gap BUN Creatinine Est GFR (CKD-EPI)AfAm Est GFR (CKD-EPI)NonAf POC Glucometer Random Glucose Hemoglobin A1c % 11.6 H Lactic Acid Calcium Phosphorus Magnesium Total Bilirubin AST ALT Alkaline Phosphatase Total Protein Albumin Urine Color Urine Appearance Urine pH Ur Specific [place] Urine Protein Urine Glucose (UA) Urine Ketones Urine Blood Urine Nitrite Urine Bilirubin Urine Urobilinogen Ur Leukocyte Esterase Blood Type O POSITIVE Antibody Screen 02/03/19 12:30 WBC RBC Hgb Hct MCV MCH MCHC RDW Plt Count MPV Absolute Neuts (auto) Neutrophils % Lymphocytes % Monocytes % Eosinophils % Basophils % Nucleated RBC % PT with INR INR PTT (Actin FS) VBG pH POC VBG pCO2 POC VBG pO2 VBG HCO3 VBG O2 Sat (Gutierrez) VBG Base Excess Sodium Potassium Chloride Carbon Dioxide Anion Gap BUN Creatinine Est GFR (CKD-EPI)AfAm Est GFR (CKD-EPI)NonAf POC Glucometer 221 Random Glucose Hemoglobin A1c % Lactic Acid Calcium Phosphorus Magnesium Total Bilirubin AST ALT Alkaline Phosphatase Total Protein Albumin Urine Color Urine Appearance Urine pH Ur Specific [place] Urine Protein Urine Glucose (UA) Urine Ketones Urine Blood Urine Nitrite Urine Bilirubin Urine Urobilinogen Ur Leukocyte Esterase Blood Type Antibody Screen Active Medications Generic Name Dose Route Start Last Admin Trade Name Freq PRN Reason Stop Dose Admin Acetaminophen 650 mg 02/03/19 15:07 Tylenol - PO Q6H PRN Fever Or Pain Albuterol Sulfate 1 amp 02/03/19 05:50 Ventolin 0.083% Nebulizer Soln - NEB Q4H PRN SHORT OF BREATH/WHEEZING Chlorhexidine Gluconate 1 applic 02/03/19 22:00 Hibiclens For Decolonization - TP HS LUCIA Fentanyl 50 mcg 02/03/19 05:49 Sublimaze Injection - IVPUSH [id number] PRN PAIN-PACU ORDER X 4 DOSES ONLY Heparin Sodium (Porcine) 5,000 unit 02/03/19 14:00 Heparin - SQ TID LUCIA Piperacillin Sod/Tazobactam 100 mls @ 200 mls/hr 02/03/19 10:45 02/03/19 11: 21 Sod 4.5 gm/ Dextrose IVPB Not Given Q8H-IV [facility]UCIA Protocol Vancomycin HCl 1,500 mg/ 500 mls @ 250 mls/hr 02/03/19 15:00 Dextrose IVPB Q12H [facility] Protocol Sodium Chloride 1,000 mls @ 100 mls/hr 02/03/19 13:13 Normal Saline - IV ASDIR [facility] Insulin Aspart 1 vial 02/03/19 07:00 02/03/19 12:00 Novolog Vial Sliding Scale - SQ 2 units ACHS [facility] Administration Protocol Mupirocin 1 applic 02/03/19 22:00 Bactroban Ointment (For Decolonization) - NS 02/08/19 21:59 BID [facility] Ondansetron HCl 4 mg 02/03/19 05:49 Zofran Injection IVPUSH Q6H PRN NAUSEA AND/OR VOMITING ASSESSMENT/PLAN: 43 y/o/m with PMHx of DM not on any treatment presented with right groin pain. Clinically significant physicial exam. CT findings: Moderate amount of fluid and edema in the right groin consistent with soft tissue cellulitis infection. Urology called in for urgent procedure for patient. 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 POD#0. 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 - New Patient This patient is new to me today: Yes Date on this admission: 02/03/19 - Critical Care Critical Care patient: Yes Total Critical Care Time (in minutes): 36 Critical Care Statement: The care of this patient involved high complexity decision making to prevent further life threatening deterioration of the patient 's condition and/or to evaluate & treat vital organ system(s) failure or risk of failure. ATTENDING PHYSICIAN STATEMENT I saw and evaluated the patient. I reviewed the resident's note and discussed the case with the resident. I agree with the resident's findings and plan as documented. SUBJECTIVE: OBJECTIVE: ASSESSMENT AND PLAN:
[2019-02-03] MEDS ORDERED: PT OWN MED DRAWER 7, Y5N ONE (16:30)
--- NOTE | 2019-02-03 17:50 | OP ---
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 PROCEDURE: Incision and drainage of inguinal abscess with debridement. ATTENDING: Samy Cuevas MD ANESTHESIA: General. DESCRIPTION OF PROCEDURE: The patient is emergently taken to the operating room due to the early findings of Tarun's gangrene in the right inguinal area. Patient has an abscess with purulent material draining from the abscess site. This has caused an elevation in his white count, and his diabetes is uncontrolled at this time. The patient is a candidate for the intensive care unit. Given the patient's situation, he is taken to the operating room emergently. In the operating room, an incision was made into the mass at this point where the pus is draining. With an incision made, the patient's index finger was taken and the area holding the purulent mass was enlarged and drained. Elements of the skin and fat were excised and sent for pathologic evaluation. The wound was then drained with an antibiotic solution after which a 2-inch iodoform packing was placed into the wound. Patient tolerated procedure very well. The wound was left open with fluffs placed externally with a scrotal support. No significant bleeding was noted. The patient tolerated the procedure very well. DISPOSITION: To the recovery room after which the patient will go to the intensive care unit. SAMY CUEVAS M.D. /[id number]
[2019-02-03] MEDS ORDERED: PIPERACILLIN/TAZOBACTAM 4.5 GM VIAL IVPB ONE (18:54)
[2019-02-03] MEDS ORDERED: DEXTROSE 5%-WATER 100 ML IVPB ONE (18:54)
--- NOTE | 2019-02-03 19:05 | PN ---
Progress Note (short form) - Note Progress Note: transfer out of the unit to [place] , no need for icu level , at this point monitor vitals q 4 hr
[2019-02-03] MEDS ORDERED: CHLORHEXIDINE GLUCONATE 4% CLEANSER FOR DECOLONIZATION TP SCH ×2 (22:00)
[2019-02-03] MEDS ORDERED: MELATONIN 5 MG TABLETS PO ONE (23:42)
[2019-02-04] MEDS ORDERED: PIPERACILLIN/TAZOBACTAM 4.5 GM VIAL IVPB ONE ×2 (01:00→09:06)
[2019-02-04] MEDS ORDERED: DEXTROSE 5%-WATER 100 ML IVPB ONE ×2 (01:01→09:06)
[2019-02-04] MEDS: PIPERACILLIN/TAZOB 4.5 GM 4.5 GM in DEXTROSE 5%-WATER 100 ML IVPB SCH ×2 (01:12→10:16)
[2019-02-04] MEDS ORDERED: PT OWN MED DRAWER 7, Y5N ONE (01:19)
[2019-02-04] MEDS: VANCOMYCIN HCL 1,500 MG in DEXTROSE 5%-WATER - 500 ML IVPB SCH ×2 (02:17→14:05)
[2019-02-04] MEDS: HEPARIN NA (PORCINE) 5,000 UNITS/ML 1ML VIAL SQ SCH ×3 (06:40→21:43)
[2019-02-04] MEDS ORDERED: INSULIN SLIDING SCALE (NOVOLOG) 1 VIAL SQ SCH (07:00)
--- NOTE | 2019-02-04 07:55 | PN ---
Physical Exam: SUBJECTIVE: Patient seen and examined. No acute events overnight. Patient had a 100.1 fever overnight which resolved after being given tylenol. This morning complains of mild pain in the groin. Advised to alert nurse if pain gets worse. OBJECTIVE: Vital Signs Period Temp Pulse Resp BP Sys/Lawson Pulse Ox Last 24 Hr 98.1 F-100.1 F 76-103 18-24 100-155/50-106 95-97 GENERAL: The patient is awake, alert, and fully oriented, in no acute distress. HEAD: Normal with no signs of trauma EYES: EOMI, no scleral icterus ENT: Moist mucous membranes NECK: Trachea midline, supple LUNGS: Breath sounds equal, clear to auscultation bilaterally, no wheezes, no crackles, no accessory muscle use. HEART: Regular rate and rhythm, S1, S2 without murmur, rub or gallop. ABDOMEN: Soft, nontender, nondistended, normoactive bowel sounds, no guarding. obese : Wound covered with dressing. Dressing changed since yesterday. EXTREMITIES: 2+ pulses, warm. no edema noted NEUROLOGICAL: Normal speech, gait not observed. sensation intact throughout. AAOx3. 5/5 upper and lower extremity strength PSYCH: appropriate mood and affect Laboratory Results - last 24 hr 02/03/19 02/03/19 02/03/19 09:00 09:00 09:00 WBC 14.2 H RBC 4.55 Hgb 13.1 Hct 38.7 MCV 85.2 MCH 28.8 MCHC 33.8 RDW 13.6 Plt Count 246 D MPV 7.3 L Absolute Neuts (auto) 10.6 H Neutrophils % 74.5 Lymphocytes % 12.1 Monocytes % 12.4 H Eosinophils % 0.3 Basophils % 0.7 Nucleated RBC % 0 PT with INR 15.50 H INR 1.31 H Sodium 138 Potassium 4.0 Chloride 105 Carbon Dioxide 26 Anion Gap 7 L BUN 8.7 Creatinine 0.9 Est GFR (CKD-EPI)AfAm 119.13 Est GFR (CKD-EPI)NonAf 102.79 POC Glucometer Random Glucose 222 H Hemoglobin A1c % Calcium 7.8 L Phosphorus 3.3 Magnesium 2.2 HIV 1&2 Ag/Ab, 4th Gen Blood Type 02/03/19 02/03/19 02/03/19 09:00 09:00 09:00 WBC RBC Hgb Hct MCV MCH MCHC RDW Plt Count MPV Absolute Neuts (auto) Neutrophils % Lymphocytes % Monocytes % Eosinophils % Basophils % Nucleated RBC % PT with INR INR Sodium Potassium Chloride Carbon Dioxide Anion Gap BUN Creatinine Est GFR (CKD-EPI)AfAm Est GFR (CKD-EPI)NonAf POC Glucometer Random Glucose Hemoglobin A1c % 11.6 H Calcium Phosphorus Magnesium HIV 1&2 Ag/Ab, 4th Gen Non reactive Blood Type O POSITIVE 02/03/19 02/03/19 02/03/19 12:30 18:44 22:20 WBC RBC Hgb Hct MCV MCH MCHC RDW Plt Count MPV Absolute Neuts (auto) Neutrophils % Lymphocytes % Monocytes % Eosinophils % Basophils % Nucleated RBC % PT with INR INR Sodium Potassium Chloride Carbon Dioxide Anion Gap BUN Creatinine Est GFR (CKD-EPI)AfAm Est GFR (CKD-EPI)NonAf POC Glucometer 221 273 235 Random Glucose Hemoglobin A1c % Calcium Phosphorus Magnesium HIV 1&2 Ag/Ab, 4th Gen Blood Type 02/04/19 06:37 WBC RBC Hgb Hct MCV MCH MCHC RDW Plt Count MPV Absolute Neuts (auto) Neutrophils % Lymphocytes % Monocytes % Eosinophils % Basophils % Nucleated RBC % PT with INR INR Sodium Potassium Chloride Carbon Dioxide Anion Gap BUN Creatinine Est GFR (CKD-EPI)AfAm Est GFR (CKD-EPI)NonAf POC Glucometer 240 Random Glucose Hemoglobin A1c % Calcium Phosphorus Magnesium HIV 1&2 Ag/Ab, 4th Gen Blood Type Active Medications Generic Name Dose Route Start Last Admin Trade Name Freq PRN Reason Stop Dose Admin Acetaminophen 650 mg 02/03/19 23:26 Tylenol - PO Q6H PRN Fever Or Pain Albuterol Sulfate 1 amp 02/03/19 23:26 Ventolin 0.083% Nebulizer Soln - NEB Q4H PRN SHORT OF BREATH/WHEEZING Fentanyl 50 mcg 02/03/19 23:26 Sublimaze Injection - IVPUSH [id number] PRN PAIN-PACU ORDER X 4 DOSES ONLY Heparin Sodium (Porcine) 5,000 unit 02/04/19 06:00 02/04/19 06:40 Heparin - SQ 5,000 unit TID LUCIA Administration Vancomycin HCl 1,500 mg/ 500 mls @ 250 mls/hr 02/04/19 03:00 02/04/19 02:17 Dextrose IVPB 250 mls/hr Q12H [facility] Administration Protocol Piperacillin Sod/Tazobactam 100 mls @ 200 mls/hr 02/04/19 02:00 02/04/19 01: 12 Sod 4.5 gm/ Dextrose IVPB 200 mls/hr Q8H-IV [facility] Administration Protocol Insulin Aspart 1 vial 02/04/19 07:00 02/04/19 06:39 Novolog Vial Sliding Scale - SQ 2 unit ACHS [facility] Administration Protocol Ondansetron HCl 4 mg 02/03/19 23:26 Zofran Injection IVPUSH Q6H PRN NAUSEA AND/OR VOMITING ASSESSMENT/PLAN: 43 y/o/m with PMHx of DM not on any treatment presented with right groin pain. Clinically significant physicial exam. CT findings: Moderate amount of fluid and edema in the right groin consistent with soft tissue cellulitis infection. Urology called in for urgent procedure for patient. 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 POD#1. 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 - New Patient This patient is new to me today: No - Critical Care Critical Care patient: No ATTENDING PHYSICIAN STATEMENT I saw and evaluated the patient. I reviewed the resident's note and discussed the case with the resident. I agree with the resident's findings and plan as documented. SUBJECTIVE: OBJECTIVE: ASSESSMENT AND PLAN:
[2019-02-04 08:36] LABS: HEMATOCRIT 38.1 % (35.4-49); HEMOGLOBIN 12.9 GM/dL (11.7-16.9); MCH 28.9 pg (25.7-33.7); MCHC 33.8 g/dl (32.0-35.9); MEAN CELL VOLUME 85.4 fl (80-96); MEAN PLT VOLUME 7.2 fl (7.5-11.1); PLATELET COUNT 269 K/MM3 (134-434); RBC 4.46 M/mm3 (4.00-5.60); RDW 13.4 % (11.9-15.9); WHITE BLOOD COUNT 11.4 K/mm3 (4.0-10.0)
--- NOTE | 2019-02-04 08:50 | CONSULT ---
Consult - text type - Consultation Consultation Note: cc: s/p debridement for for natalie's gangrene hpi: patient comfortable and doing well pe vss; afeb wound without drainage packing removed imp s/p debridement plan wet to dry dressing changes twice a day antibiotics as per id
[2019-02-04 09:16] LABS: ALBUMIN 2.4 g/dl (3.4-5.0); BILIRUBIN,TOTAL 0.7 mg/dL (0.2-1); BLOOD UREA NITROGEN 8.6 mg/dL (7-18); CALCIUM 8.2 mg/dL (8.5-10.1); CREATININE 0.8 mg/dL (0.55-1.3); MAGNESIUM 2.4 mg/dL (1.8-2.4); PHOSPHOROUS 3.4 mg/dL (2.5-4.9); POTASSIUM 3.9 mmol/L (3.5-5.1); TOT PROT 6.1 g/dl (6.4-8.2)
--- NOTE | 2019-02-04 09:48 | EKG ---
Test Reason : Blood Pressure : / mmHG Vent. Rate : 093 BPM Atrial Rate : 093 BPM P-R Int : 166 ms QRS Dur : 088 ms QT Int : 362 ms P-R-T Axes : 046 062 030 degrees QTc Int : 450 ms NORMAL SINUS RHYTHM NORMAL ECG WHEN COMPARED WITH ECG OF 22-JUL-2018 13:39, NO SIGNIFICANT CHANGE WAS FOUND Confirmed by MD Hernandez Daniel ([id number]) on 02/04/2019 9:47:59 AM Referred By: Confirmed By:Tarun Hernandez MD
[2019-02-04] MEDS: oxyCODONE HCL 5 MG TABLET PO PRN ×2 (10:17→21:41)
[2019-02-04] MEDS: ACETAMINOPHEN 325 MG TABLET (FP) PO PRN (10:18)
--- NOTE | 2019-02-04 11:57 | PN ---
Teaching Attending Note Name of Resident: Varghese Bee ATTENDING PHYSICIAN STATEMENT I saw and evaluated the patient. I reviewed the resident's note and discussed the case with the resident. I agree with the resident's findings and plan as documented. SUBJECTIVE: Comfortable, less discomfort. No fevers/chills. OBJECTIVE: Afebrile, Tmax 100.1, Hemodynamically Stable Last Vital Signs Temp Pulse Resp BP Pulse Ox 98.1 F 92 H 18 104/66 97 02/04/19 06:34 02/04/19 06:34 02/04/19 06:34 02/04/19 06:34 02/04/19 03:00 Heart - S1, S2, RRR Lungs - clear to auscultation Abdomen - High BMI, Soft, non-tender. Bowel Sounds normal. - R groin I and D site dressed. Less surrounding erythema. Extremities - mild edema, no calf tenderness. Neuro - AAO x 3. Tone/Power normal. Laboratory Results - last 24 hr 02/03/19 02/03/19 02/03/19 09:00 12:30 18:44 WBC RBC Hgb Hct MCV MCH MCHC RDW Plt Count MPV Sodium Potassium Chloride Carbon Dioxide Anion Gap BUN Creatinine Est GFR (CKD-EPI)AfAm Est GFR (CKD-EPI)NonAf POC Glucometer 221 273 Random Glucose Calcium Phosphorus Magnesium Total Bilirubin AST ALT Alkaline Phosphatase Total Protein Albumin HIV 1&2 Ag/Ab, 4th Gen Non reactive 02/03/19 02/04/19 02/04/19 22:20 06:37 07:30 WBC 11.4 H RBC 4.46 Hgb 12.9 Hct 38.1 MCV 85.4 MCH 28.9 MCHC 33.8 RDW 13.4 Plt Count 269 MPV 7.2 L Sodium Potassium Chloride Carbon Dioxide Anion Gap BUN Creatinine Est GFR (CKD-EPI)AfAm Est GFR (CKD-EPI)NonAf POC Glucometer 235 240 Random Glucose Calcium Phosphorus Magnesium Total Bilirubin AST ALT Alkaline Phosphatase Total Protein Albumin HIV 1&2 Ag/Ab, 4th Gen 02/04/19 07:30 WBC RBC Hgb Hct MCV MCH MCHC RDW Plt Count MPV Sodium 137 Potassium 3.9 Chloride 104 Carbon Dioxide 24 Anion Gap 9 BUN 8.6 Creatinine 0.8 Est GFR (CKD-EPI)AfAm 125.04 Est GFR (CKD-EPI)NonAf 107.88 POC Glucometer Random Glucose 219 H Calcium 8.2 L Phosphorus 3.4 Magnesium 2.4 Total Bilirubin 0.7 AST 34 ALT 63 H Alkaline Phosphatase 127 H Total Protein 6.1 L Albumin 2.4 L HIV 1&2 Ag/Ab, 4th Gen Current Medications Generic Name Dose Route Start Last Admin Trade Name Freq PRN Reason Stop Dose Admin Acetaminophen 650 mg 02/03/19 23:26 02/04/19 10:18 Tylenol - PO 650 mg Q6H PRN Administration FEVER Albuterol Sulfate 1 amp 02/03/19 23:26 Ventolin 0.083% Nebulizer Soln - NEB Q4H PRN SHORT OF BREATH/WHEEZING Fentanyl 50 mcg 02/03/19 23:26 Sublimaze Injection - IVPUSH [id number] PRN PAIN-PACU ORDER X 4 DOSES ONLY Heparin Sodium (Porcine) 5,000 unit 02/04/19 06:00 02/04/19 06:40 Heparin - SQ 5,000 unit TID LUCIA Administration Vancomycin HCl 1,500 mg/ 500 mls @ 250 mls/hr 02/04/19 03:00 02/04/19 02:17 Dextrose IVPB 250 mls/hr Q12H [facility] Administration Protocol Piperacillin Sod/Tazobactam 100 mls @ 200 mls/hr 02/04/19 02:00 02/04/19 10: 16 Sod 4.5 gm/ Dextrose IVPB 200 mls/hr Q8H-IV [facility] Administration Protocol Insulin Aspart 1 vial 02/04/19 11:00 Novolog Vial Sliding Scale - SQ ACHS [facility] Protocol Ondansetron HCl 4 mg 02/03/19 23:26 Zofran Injection IVPUSH Q6H PRN NAUSEA AND/OR VOMITING Oxycodone HCl 5 mg 02/04/19 09:05 02/04/19 10:17 Roxicodone - PO 5 mg Q4H PRN Administration PAIN LEVEL 6-10 Home Medications Medication Instructions Recorded NK [No Known Home Medication] 02/03/19 ASSESSMENT AND PLAN: 43 year old male with morbid obesity, DM 2 (uncontrolled), presented with R groin and perineal pain for 4-5/7 with small groin abscess, worsening redness and difficulty urinating. CT A/P - Mild basilar atelectasis. Mild hepatomegaly and steatosis. Moderate amount of fluid and edema in the right groin consistent with soft tissue cellulitis infection. Right groin nonspecific lymphadenopathy most likely reactive to infection. 1. Sepsis secondary to R groin Cellulitis/Tarun's Gangrene POD 1 s/p I and D R groin abscess and Debridement by Urology Sepsis resolved. Lactate normalized. Tachycardia resolved. Leukocytosis improving. Blood cultures - negative Wound/Surgical Cx and Urine Cx - presumptive MRSA. Afebrile, Hemodynamically Stable. Continue Zosyn/Vanco - further Abx titration as per ID. Oxycodone PRN for pain. 2. DM 2, uncontrolled, A1c 11.6 Unclear what home medications he is on for DM 2 - clearly non-compliant. Sugars on high side - Novolog sliding scale tier increased. 3. Calcified granulomas in the prostate QuantiFERON gold sent CXR clear DVT Px - Heparin SQ.
[2019-02-04] MEDS: INSULIN SLIDING SCALE (NOVOLOG) 1 VIAL SQ SCH ×3 (12:30→21:44)
--- NOTE | 2019-02-04 15:00 | PN ---
Progress Note (short form) - Note Progress Note: doing well transferred to floor seen by urology packing removed Vital Signs Period Temp Pulse Resp BP Sys/Lawson Pulse Ox Last 24 Hr 98.1 F-100.1 F 90-103 18-20 104-155/61-106 97-97 cor-rrr lungs clear abd soft,nt ext +induration right groin with serous draiange from the incision CBC, BMP 02/04/19 07:30 02/04/19 07:30 Microbiology 02/03/19 05:04 Groin - Right Gram Stain - Final 02/03/19 05:04 Groin - Right Wound Culture - Preliminary Presumptive Mrsa (Pbp2a Pos) 02/02/19 18:20 Urine - Urine Clean Catch Urine Culture - Final Presumptive Mrsa (Pbp2a Pos) 02/02/19 18:20 Blood - Peripheral Venous Blood Culture - Preliminary NO GROWTH OBTAINED AFTER 24 HOURS, INCUBATION TO CONTINUE FOR 4 DAYS. 02/02/19 18:20 Blood - Peripheral Venous Blood Culture - Preliminary NO GROWTH OBTAINED AFTER 24 HOURS, INCUBATION TO CONTINUE FOR 4 DAYS. a/p MRSA abscess- c/w history that he had a pimple there continue vancomycin- trough cancelled!!- not sure why will reorder isolation d/c zosyn Problem List - Problems (1) Groin abscess Code(s): L02.214 - CUTANEOUS ABSCESS OF GROIN (2) Diabetes type 2, uncontrolled Code(s): E11.65 - TYPE 2 DIABETES MELLITUS WITH HYPERGLYCEMIA Qualifiers: Glycemic state: with hyperglycemia Qualified Code(s): E11.65 - Type 2 diabetes mellitus with hyperglycemia (3) Morbid obesity Code(s): E66.01 - MORBID (SEVERE) OBESITY DUE TO EXCESS CALORIES
[2019-02-04] MEDS ORDERED: MELATONIN 5 MG TABLETS PO ONE (23:53)
[2019-02-05] MEDS ORDERED: PT OWN MED DRAWER 7, Y5N ONE ×2 (02:58→06:24)
[2019-02-05] MEDS: VANCOMYCIN HCL 1,500 MG in DEXTROSE 5%-WATER - 500 ML IVPB SCH ×2 (03:04→15:37)
[2019-02-05] MEDS: ACETAMINOPHEN 325 MG TABLET (FP) PO PRN (03:04)
[2019-02-05] MEDS: INSULIN SLIDING SCALE (NOVOLOG) 1 VIAL SQ SCH ×4 (06:38→21:30)
[2019-02-05] MEDS: HEPARIN NA (PORCINE) 5,000 UNITS/ML 1ML VIAL SQ SCH ×3 (06:38→21:29)
[2019-02-05 08:02] LABS: HEMATOCRIT 38.5 % (35.4-49); HEMOGLOBIN 13.1 GM/dL (11.7-16.9); MCH 28.8 pg (25.7-33.7); MCHC 33.9 g/dl (32.0-35.9); PLATELET COUNT 280 K/MM3 (134-434); RBC 4.53 M/mm3 (4.00-5.60); RDW 13.5 % (11.9-15.9); WHITE BLOOD COUNT 9.5 K/mm3 (4.0-10.0)
[2019-02-05 08:09] LABS: BLOOD UREA NITROGEN 9.2 mg/dL (7-18); CALCIUM 8.5 mg/dL (8.5-10.1); CREATININE 0.8 mg/dL (0.55-1.3); POTASSIUM 3.9 mmol/L (3.5-5.1)
[2019-02-05] MEDS: oxyCODONE HCL 5 MG TABLET PO PRN (10:48)
--- NOTE | 2019-02-05 12:01 | PN ---
Progress Note (short form) - Note Progress Note: pod #2 improving Vital Signs Period Temp Pulse Resp BP Sys/Lawson Pulse Ox Last 24 Hr 98 F-98.7 F 82-94 16-20 125-156/73-84 97-98 cor-rrr lungs clear abd soft,nt right inguinal induration with packing noted CBC, BMP 02/05/19 06:50 02/05/19 06:50 Microbiology 02/03/19 05:04 Groin - Right Gram Stain - Final 02/03/19 05:04 Groin - Right Wound Culture - Preliminary Mr S Aureus Lactose Fermenting Neg Bacilli Lactose Fermenting Neg Bacilli#2 02/02/19 18:20 Blood - Peripheral Venous Blood Culture - Preliminary NO GROWTH OBTAINED AFTER 48 HOURS, INCUBATION TO CONTINUE FOR 3 DAYS. 02/02/19 18:20 Blood - Peripheral Venous Blood Culture - Preliminary NO GROWTH OBTAINED AFTER 48 HOURS, INCUBATION TO CONTINUE FOR 3 DAYS. 02/02/19 18:20 Urine - Urine Clean Catch Urine Culture - Final Presumptive Mrsa (Pbp2a Pos) a/p MRSA abscess- c/w history that he had a pimple there continue vancomycin- add ceftriaxone, check vancomycin trough today some gnr isolated as well from broth hoping he can be discharged home tomorrow with VNS and wound care on po antibiotics will f/u the cultures Problem List - Problems (1) Groin abscess Code(s): L02.214 - CUTANEOUS ABSCESS OF GROIN (2) Diabetes type 2, uncontrolled Code(s): E11.65 - TYPE 2 DIABETES MELLITUS WITH HYPERGLYCEMIA Qualifiers: Glycemic state: with hyperglycemia Qualified Code(s): E11.65 - Type 2 diabetes mellitus with hyperglycemia (3) Morbid obesity Code(s): E66.01 - MORBID (SEVERE) OBESITY DUE TO EXCESS CALORIES
[2019-02-05] MEDS ORDERED: CEFTRIAXONE 2 GM in DEXTROSE 5%-WATER 100 ML IVPB ONE (12:15)
[2019-02-05] MEDS ORDERED: DEXTROSE 5%-WATER 100 ML IVPB ONE (13:25)
--- NOTE | 2019-02-05 14:26 | PN ---
Physical Exam: SUBJECTIVE: Patient seen and examined. States his pain is mild and well controlled. No complaints of chest pain, SOB, abd pain, or other concerns. OBJECTIVE: Vital Signs Period Temp Pulse Resp BP Sys/Lawson Pulse Ox Last 24 Hr 98 F-98.7 F 82-94 16-20 128-156/73-84 97-98 GENERAL: The patient is awake, alert, and fully oriented, in no acute distress. HEAD: Normal with no signs of trauma EYES: EOMI, no scleral icterus ENT: Moist mucous membranes NECK: Trachea midline, supple LUNGS: Breath sounds equal, clear to auscultation bilaterally, no wheezes, no crackles, no accessory muscle use. HEART: Regular rate and rhythm, S1, S2 without murmur, rub or gallop. ABDOMEN: Soft, nontender, nondistended, normoactive bowel sounds, no guarding. obese : Wound healing well without surrounding edema or erythema. Open without any drainage. Covered with wet to dry dressing. EXTREMITIES: 2+ pulses, warm. no edema noted NEUROLOGICAL: Normal speech, gait not observed. AAOx3. 5/5 upper and lower extremity strength PSYCH: appropriate mood and affect Laboratory Results - last 24 hr 02/03/19 02/04/19 02/04/19 13:29 17:06 20:40 WBC RBC Hgb Hct MCV MCH MCHC RDW Plt Count MPV Sodium Potassium Chloride Carbon Dioxide Anion Gap BUN Creatinine Est GFR (CKD-EPI)AfAm Est GFR (CKD-EPI)NonAf POC Glucometer 282 213 Random Glucose Calcium TB Test (QFT) Nil 0.04 TB Test (QFT) Mitogen >10.00 TB Test (QFT) Antigen 0.06 TB Test (QFT) Negative TB Positive Criteria 02/05/19 02/05/19 02/05/19 02:52 06:37 06:50 WBC 9.5 RBC 4.53 Hgb 13.1 Hct 38.5 MCV 85.0 MCH 28.8 MCHC 33.9 RDW 13.5 Plt Count 280 MPV 7.0 L Sodium Potassium Chloride Carbon Dioxide Anion Gap BUN Creatinine Est GFR (CKD-EPI)AfAm Est GFR (CKD-EPI)NonAf POC Glucometer 159 243 Random Glucose Calcium TB Test (QFT) Nil TB Test (QFT) Mitogen TB Test (QFT) Antigen TB Test (QFT) TB Positive Criteria 02/05/19 02/05/19 06:50 10:50 WBC RBC Hgb Hct MCV MCH MCHC RDW Plt Count MPV Sodium 136 Potassium 3.9 Chloride 101 Carbon Dioxide 29 Anion Gap 6 L BUN 9.2 Creatinine 0.8 Est GFR (CKD-EPI)AfAm 125.04 Est GFR (CKD-EPI)NonAf 107.88 POC Glucometer 313 Random Glucose 237 H Calcium 8.5 TB Test (QFT) Nil TB Test (QFT) Mitogen TB Test (QFT) Antigen TB Test (QFT) TB Positive Criteria Active Medications Generic Name Dose Route Start Last Admin Trade Name Freq PRN Reason Stop Dose Admin Acetaminophen 650 mg 02/03/19 23:26 02/05/19 03:04 Tylenol - PO 650 mg Q6H PRN Administration FEVER Albuterol Sulfate 1 amp 02/03/19 23:26 Ventolin 0.083% Nebulizer Soln - NEB Q4H PRN SHORT OF BREATH/WHEEZING Fentanyl 50 mcg 02/03/19 23:26 Sublimaze Injection - IVPUSH [id number] PRN PAIN-PACU ORDER X 4 DOSES ONLY Heparin Sodium (Porcine) 5,000 unit 02/04/19 06:00 02/05/19 14:08 Heparin - SQ 5,000 unit TID LUCIA Administration Vancomycin HCl 1,500 mg/ 500 mls @ 250 mls/hr 02/04/19 03:00 02/05/19 03:04 Dextrose IVPB 250 mls/hr Q12H LUCIA Administration Protocol Insulin Aspart 1 vial 02/04/19 11:00 02/05/19 12:16 Novolog Vial Sliding Scale - SQ 8 units ACHS [facility] Administration Protocol Insulin Detemir 10 units 02/05/19 22:00 Levemir Vial SQ HS LUCIA Ondansetron HCl 4 mg 02/03/19 23:26 Zofran Injection IVPUSH Q6H PRN NAUSEA AND/OR VOMITING Oxycodone HCl 5 mg 02/04/19 09:05 02/05/19 10:48 Roxicodone - PO 5 mg Q4H PRN Administration PAIN LEVEL 6-10 ASSESSMENT/PLAN: 43 y/o/m with PMHx of DM not on any treatment presented with right groin pain. Clinically significant physicial exam. CT findings: Moderate amount of fluid and edema in the right groin consistent with soft tissue cellulitis infection. 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 Selina D/Ronald - Vanc level at 6.7 today - Urology on board, s/p incision and drainage of inguinal abscess with debridement. POD#1. appreciate recs - wet to dry dressing changes twice a day - Will need follow up outpatient - ID on board, recs appreciated - will need PO abx on discharge - Blood cultures without growth - Urine culture growing presumptive MRSA - groin wound cultures growing MRSA and lactose fermenting negative bacilli #DM - ISS ACHS - BGMs - HBA1c - 11.6 - Levemir 10units HS - Will follow up with Dr. 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 - New Patient This patient is new to me today: No - Critical Care Critical Care patient: No ATTENDING PHYSICIAN STATEMENT I saw and evaluated the patient. I reviewed the resident's note and discussed the case with the resident. I agree with the resident's findings and plan as documented. SUBJECTIVE: OBJECTIVE: ASSESSMENT AND PLAN:
--- NOTE | 2019-02-05 15:48 | PATH ---
Surgical Pathology Report Patient Name: TERRY LAURENT Med. Rec. #: [id number] /Age/Gender: 1975 (Age: 43) / M Account: [id number] Location: [facility]URG Taken: 02/03/2019 Received: 02/03/2019 Reported: 02/05/2019 Physicians: Ángel Goodman Specimen(s) Received RIGHT GROIN DEBRIDEMENT TISSUE Clinical History Tarun gangrene and abscess right groin Final Diagnosis RIGHT GROIN DEBRIDED TISSUE, EXCISION: PORTIONS OF FIBROADIPOSE TISSUE WITH SEVERE ACUTE AND CHRONIC INFLAMMATION AND ABSCESS FORMATION. Electronically Signed Vicki Resendiz M.D. Gross Description Received in formalin labeled "right groin debrided tissue," is a 2.8 x 2.0 x 0.5 cm aggregate of castillo-everett, necrotic skin and soft tissue fragments. A quality control representative portion is submitted in one cassette. 02/04/201902/04/2019
--- NOTE | 2019-02-05 16:33 | PN ---
Teaching Attending Note Name of Resident: Varghese Bee ATTENDING PHYSICIAN STATEMENT I saw and evaluated the patient. I reviewed the resident's note and discussed the case with the resident. I agree with the resident's findings and plan as documented. SUBJECTIVE: Comfortable, less discomfort, mobilizing well. No fevers/chills. OBJECTIVE: Afebrile, Hemodynamically Stable Last Vital Signs Temp Pulse Resp BP Pulse Ox 98.2 F 94 H 20 141/74 97 02/05/19 13:48 02/05/19 13:48 02/05/19 13:48 02/05/19 13:48 02/05/19 05:22 Heart - S1, S2, RRR Lungs - clear to auscultation Abdomen - High BMI, Soft, non-tender. Bowel Sounds normal. - R groin I and D site dressed. Less surrounding erythema. Extremities - mild edema, no calf tenderness. Neuro - AAO x 3. Tone/Power normal. Laboratory Results - last 24 hr 02/03/19 02/04/19 02/04/19 13:29 17:06 20:40 WBC RBC Hgb Hct MCV MCH MCHC RDW Plt Count MPV Sodium Potassium Chloride Carbon Dioxide Anion Gap BUN Creatinine Est GFR (CKD-EPI)AfAm Est GFR (CKD-EPI)NonAf POC Glucometer 282 213 Random Glucose Calcium Vancomycin Pre-Dose TB Test (QFT) Nil 0.04 TB Test (QFT) Mitogen >10.00 TB Test (QFT) Antigen 0.06 TB Test (QFT) Negative TB Positive Criteria 02/05/19 02/05/19 02/05/19 02:52 06:37 06:50 WBC 9.5 RBC 4.53 Hgb 13.1 Hct 38.5 MCV 85.0 MCH 28.8 MCHC 33.9 RDW 13.5 Plt Count 280 MPV 7.0 L Sodium Potassium Chloride Carbon Dioxide Anion Gap BUN Creatinine Est GFR (CKD-EPI)AfAm Est GFR (CKD-EPI)NonAf POC Glucometer 159 243 Random Glucose Calcium Vancomycin Pre-Dose TB Test (QFT) Nil TB Test (QFT) Mitogen TB Test (QFT) Antigen TB Test (QFT) TB Positive Criteria 02/05/19 02/05/19 02/05/19 06:50 10:50 14:30 WBC RBC Hgb Hct MCV MCH MCHC RDW Plt Count MPV Sodium 136 Potassium 3.9 Chloride 101 Carbon Dioxide 29 Anion Gap 6 L BUN 9.2 Creatinine 0.8 Est GFR (CKD-EPI)AfAm 125.04 Est GFR (CKD-EPI)NonAf 107.88 POC Glucometer 313 Random Glucose 237 H Calcium 8.5 Vancomycin Pre-Dose 6.7 L TB Test (QFT) Nil TB Test (QFT) Mitogen TB Test (QFT) Antigen TB Test (QFT) TB Positive Criteria Current Medications Generic Name Dose Route Start Last Admin Trade Name Freq PRN Reason Stop Dose Admin Acetaminophen 650 mg 02/03/19 23:26 02/05/19 03:04 Tylenol - PO 650 mg Q6H PRN Administration FEVER Albuterol Sulfate 1 amp 02/03/19 23:26 Ventolin 0.083% Nebulizer Soln - NEB Q4H PRN SHORT OF BREATH/WHEEZING Fentanyl 50 mcg 02/03/19 23:26 Sublimaze Injection - IVPUSH [id number] PRN PAIN-PACU ORDER X 4 DOSES ONLY Heparin Sodium (Porcine) 5,000 unit 02/04/19 06:00 02/05/19 14:08 Heparin - SQ 5,000 unit TID LUCIA Administration Vancomycin HCl 1,500 mg/ 500 mls @ 250 mls/hr 02/04/19 03:00 02/05/19 15:37 Dextrose IVPB 250 mls/hr Q12H [facility] Administration Protocol Insulin Aspart 1 vial 02/04/19 11:00 02/05/19 12:16 Novolog Vial Sliding Scale - SQ 8 units ACHS [facility] Administration Protocol Insulin Detemir 10 units 02/05/19 22:00 Levemir Vial SQ HS LUCIA Ondansetron HCl 4 mg 02/03/19 23:26 Zofran Injection IVPUSH Q6H PRN NAUSEA AND/OR VOMITING Oxycodone HCl 5 mg 02/04/19 09:05 02/05/19 10:48 Roxicodone - PO 5 mg Q4H PRN Administration PAIN LEVEL 6-10 Home Medications Medication Instructions Recorded NK [No Known Home Medication] 02/03/19 ASSESSMENT AND PLAN: 43 year old male with morbid obesity, DM 2 (uncontrolled), presented with R groin and perineal pain for 4-5/7 with small groin abscess, worsening redness and difficulty urinating. CT A/P - Mild basilar atelectasis. Mild hepatomegaly and steatosis. Moderate amount of fluid and edema in the right groin consistent with soft tissue cellulitis infection. Right groin nonspecific lymphadenopathy most likely reactive to infection. 1. Sepsis secondary to R groin Cellulitis/Tarun's Gangrene POD 2 s/p I and D of R groin abscess and Debridement by Urology Sepsis resolved. Lactate normalized. Tachycardia resolved. Leukocytosis improved Blood cultures - negative Wound/Surgical Cx and Urine Cx - presumptive MRSA, and LFNB. Afebrile, Hemodynamically Stable. Ceftriaxone added to Vanco by ID - further Abx titration and likley conversion to oral Abx tomorrow. Oxycodone PRN for pain. 2. DM 2, uncontrolled, A1c 11.6 Supposed to be on Metformin for DM 2 - clearly non-compliant. Sugars on high side - Novolog sliding scale tier increased. Will discharge on Metformin. Arrangements made for follow up with Dr. Elizondo this week as outpatient (Discussed with Dr. Elizondo). 3. Calcified granulomas in the prostate QuantiFERON neg CXR clear DVT Px - Heparin SQ.
[2019-02-05] MEDS ORDERED: INSULIN (NOVOLOG) ASPART 100 UNITS/ML 10ML VIAL ONE (21:28)
[2019-02-05] MEDS ORDERED: INSULIN (LEVEMIR) 100 UNITS/ML UNITS SQ SCH (22:00)
[2019-02-06] MEDS ORDERED: MELATONIN 5 MG TABLETS PO ONE (00:07)
[2019-02-06] MEDS: oxyCODONE HCL 5 MG TABLET PO PRN (00:17)
[2019-02-06] MEDS ORDERED: PT OWN MED DRAWER 7, Y5N ONE ×2 (02:35→06:23)
[2019-02-06] MEDS: VANCOMYCIN HCL 1,500 MG in DEXTROSE 5%-WATER - 500 ML IVPB SCH ×2 (02:37→15:20)
[2019-02-06] MEDS: HEPARIN NA (PORCINE) 5,000 UNITS/ML 1ML VIAL SQ SCH ×2 (06:30→14:28)
[2019-02-06] MEDS: INSULIN SLIDING SCALE (NOVOLOG) 1 VIAL SQ SCH ×3 (06:36→16:45)
[2019-02-06 08:18] LABS: BLOOD UREA NITROGEN 10.8 mg/dL (7-18); CALCIUM 8.3 mg/dL (8.5-10.1); CREATININE 0.8 mg/dL (0.55-1.3); POTASSIUM 3.8 mmol/L (3.5-5.1)
--- NOTE | 2019-02-06 10:27 | PN ---
Progress Note (short form) - Note Progress Note: pod #3 Vital Signs Period Temp Pulse Resp BP Sys/Lawson Pulse Ox Last 24 Hr 98 F-99.0 F 78-94 17-20 122-141/74-85 97-98 cor-rrr lungs clear abd soft,nt wound examined with medical team no drainage, area with induration CBC, BMP 02/05/19 06:50 02/06/19 06:30 Microbiology 02/02/19 18:20 Blood - Peripheral Venous Blood Culture - Preliminary NO GROWTH OBTAINED AFTER 72 HOURS, INCUBATION TO CONTINUE FOR 2 DAYS. 02/02/19 18:20 Blood - Peripheral Venous Blood Culture - Preliminary NO GROWTH OBTAINED AFTER 72 HOURS, INCUBATION TO CONTINUE FOR 2 DAYS. 02/03/19 05:04 Groin - Right Gram Stain - Final 02/03/19 05:04 Groin - Right Wound Culture - Preliminary S Aureus Lactose Fermenting Neg Bacilli -broth only Lactose Fermenting Neg Bacilli#2-broth only 02/02/19 18:20 Urine - Urine Clean Catch Urine Culture - Final Presumptive Mrsa (Pbp2a Pos) a/p MRSA abscess- c/w history that he had a pimple there can switch to po clinndamycin 450 mg po tid for 10 days ceftin 500 bid for 7 days add probiotics for one month needs VNS needs urology f/u of wound needs endocrine f/u d/w hospitalist service Problem List - Problems (1) Groin abscess Code(s): L02.214 - CUTANEOUS ABSCESS OF GROIN (2) Diabetes type 2, uncontrolled Code(s): E11.65 - TYPE 2 DIABETES MELLITUS WITH HYPERGLYCEMIA Qualifiers: Glycemic state: with hyperglycemia Qualified Code(s): E11.65 - Type 2 diabetes mellitus with hyperglycemia (3) Morbid obesity Code(s): E66.01 - MORBID (SEVERE) OBESITY DUE TO EXCESS CALORIES
--- NOTE | 2019-02-06 12:39 | PN ---
Teaching Attending Note Name of Resident: Varghese Bee ATTENDING PHYSICIAN STATEMENT I saw and evaluated the patient. I reviewed the resident's note and discussed the case with the resident. I agree with the resident's findings and plan as documented. SUBJECTIVE: Comfortable, less discomfort. No fevers/chills. OBJECTIVE: Afebrile, Hemodynamically Stable Last Vital Signs Temp Pulse Resp BP Pulse Ox 98.2 F 87 18 143/91 97 02/06/19 10:00 02/06/19 10:00 02/06/19 10:00 02/06/19 10:00 02/06/19 10:00 Heart - S1, S2, RRR Lungs - clear to auscultation Abdomen - High BMI, Soft, non-tender. Bowel Sounds normal. - R groin I and D site looks clean, no surrounding erythema or discharge. Surrounding edema/induration improving. Extremities - mild edema, no calf tenderness. Neuro - AAO x 3. Tone/Power normal. Laboratory Results - last 24 hr 02/03/19 02/05/19 02/05/19 13:29 14:30 16:52 Sodium Potassium Chloride Carbon Dioxide Anion Gap BUN Creatinine Est GFR (CKD-EPI)AfAm Est GFR (CKD-EPI)NonAf POC Glucometer 284 Random Glucose Calcium Vancomycin Pre-Dose 6.7 L TB Test (QFT) Nil 0.04 TB Test (QFT) Mitogen >10.00 TB Test (QFT) Antigen 0.06 TB Test (QFT) Negative TB Positive Criteria 02/05/19 02/05/19 02/06/19 16:53 21:24 06:30 Sodium 136 Potassium 3.8 Chloride 102 Carbon Dioxide 27 Anion Gap 8 BUN 10.8 Creatinine 0.8 Est GFR (CKD-EPI)AfAm 125.04 Est GFR (CKD-EPI)NonAf 107.88 POC Glucometer 259 267 Random Glucose 217 H Calcium 8.3 L Vancomycin Pre-Dose TB Test (QFT) Nil TB Test (QFT) Mitogen TB Test (QFT) Antigen TB Test (QFT) TB Positive Criteria 02/06/19 02/06/19 06:35 11:26 Sodium Potassium Chloride Carbon Dioxide Anion Gap BUN Creatinine Est GFR (CKD-EPI)AfAm Est GFR (CKD-EPI)NonAf POC Glucometer 212 236 Random Glucose Calcium Vancomycin Pre-Dose TB Test (QFT) Nil TB Test (QFT) Mitogen TB Test (QFT) Antigen TB Test (QFT) TB Positive Criteria Current Medications Generic Name Dose Route Start Last Admin Trade Name Freq PRN Reason Stop Dose Admin Acetaminophen 650 mg 02/03/19 23:26 02/05/19 03:04 Tylenol - PO 650 mg Q6H PRN Administration FEVER Albuterol Sulfate 1 amp 02/03/19 23:26 Ventolin 0.083% Nebulizer Soln - NEB Q4H PRN SHORT OF BREATH/WHEEZING Fentanyl 50 mcg 02/03/19 23:26 Sublimaze Injection - IVPUSH [id number] PRN PAIN-PACU ORDER X 4 DOSES ONLY Heparin Sodium (Porcine) 5,000 unit 02/04/19 06:00 02/06/19 06:30 Heparin - SQ 5,000 unit TID LUCIA Administration Vancomycin HCl 1,500 mg/ 500 mls @ 250 mls/hr 02/04/19 03:00 02/06/19 02:37 Dextrose IVPB 250 mls/hr Q12H LUCIA Administration Protocol Insulin Aspart 1 vial 02/04/19 11:00 02/06/19 11:28 Novolog Vial Sliding Scale - SQ 4 units ACHS LUCIA Administration Protocol Insulin Detemir 10 units 02/05/19 22:00 02/05/19 21:30 Levemir Vial SQ 10 units HS LUCIA Administration Ondansetron HCl 4 mg 02/03/19 23:26 Zofran Injection IVPUSH Q6H PRN NAUSEA AND/OR VOMITING Oxycodone HCl 5 mg 02/04/19 09:05 02/06/19 00:17 Roxicodone - PO 5 mg Q4H PRN Administration PAIN LEVEL 6-10 Home Medications Medication Instructions Recorded Acetaminophen [Tylenol .Regular 650 mg PO Q6H PRN tablet 02/06/19 Strength -] Cefuroxime Axetil [Ceftin -] 500 mg PO Q12H #14 tablet 02/06/19 Clindamycin [Cleocin -] 450 mg PO Q8H #30 capsule 02/06/19 Lactobacillus Acidophilus [Bacid -] 1 each PO DAILY #30 capsule 02/06/19 Metformin HCl [Glucophage] 1,000 mg PO BID #30 tablet 02/06/19 ASSESSMENT AND PLAN: 43 year old male with morbid obesity, DM 2 (uncontrolled), presented with R groin and perineal pain for 4-5/7 with small groin abscess, worsening redness and difficulty urinating. CT A/P - Mild basilar atelectasis. Mild hepatomegaly and steatosis. Moderate amount of fluid and edema in the right groin consistent with soft tissue cellulitis infection. Right groin nonspecific lymphadenopathy most likely reactive to infection. 1. Sepsis secondary to R groin Cellulitis/Abscess/Tarun's Gangrene POD 3 s/p I and D of R groin abscess and Debridement by Urology Sepsis resolved. Lactate normalized. Tachycardia resolved. Leukocytosis improved Blood cultures - negative Wound/Surgical Cx and Urine Cx - MRSA, Ecoli Afebrile, Hemodynamically Stable. Treated with Ceftriaxone/Vanco - recommendation for Clindamycin and Ceftin by ID with probiotic coverage for 1 month. Wet to dry dressing change BID as per Urology. Urology and ID follow up as out-patient. 2. DM 2, uncontrolled, A1c 11.6 Supposed to be on Metformin for DM 2 - clearly non-compliant. Discussed with Dr. Elizondo - will discharge on Metformin. Arrangements made for follow up with Dr. Elizondo 02/07 as outpatient (Discussed with Dr. Elizondo ). 3. 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 Medically optimized for discharge with VNS services for dressing change, Endo follow up for uncontrolled DM2, and Urology follow up.
--- NOTE | 2019-02-06 16:51 | DS ---
Physical Exam: SUBJECTIVE: Patient seen and examined. No acute events overnight. States his pain is under control. Denies any chest pain, abd pain, dysuria. OBJECTIVE: Vital Signs Period Temp Pulse Resp BP Sys/Lawson Pulse Ox Last 24 Hr 98 F-99.0 F 78-94 17-20 106-143/51-91 97-98 PHYSICAL EXAM GENERAL: The patient is awake, alert, and fully oriented, in no acute distress. HEAD: Normal with no signs of trauma EYES: EOMI, no scleral icterus ENT: Moist mucous membranes NECK: Trachea midline, supple LUNGS: Breath sounds equal, clear to auscultation bilaterally, no wheezes, no crackles, no accessory muscle use. HEART: Regular rate and rhythm, S1, S2 without murmur, rub or gallop. ABDOMEN: Soft, nontender, nondistended, normoactive bowel sounds, no guarding. obese : Wound healing well without surrounding edema, erythema, or drainage. Open without any pus. Covered with wet to dry dressing. EXTREMITIES: 2+ pulses, warm. no edema noted NEUROLOGICAL: Normal speech, gait not observed. AAOx3. 5/5 upper and lower extremity strength PSYCH: appropriate mood and affect LABS Laboratory Results - last 24 hr 02/05/19 02/05/19 02/05/19 16:52 16:53 21:24 Sodium Potassium Chloride Carbon Dioxide Anion Gap BUN Creatinine Est GFR (CKD-EPI)AfAm Est GFR (CKD-EPI)NonAf POC Glucometer 284 259 267 Random Glucose Calcium 02/06/19 02/06/19 02/06/19 06:30 06:35 11:26 Sodium 136 Potassium 3.8 Chloride 102 Carbon Dioxide 27 Anion Gap 8 BUN 10.8 Creatinine 0.8 Est GFR (CKD-EPI)AfAm 125.04 Est GFR (CKD-EPI)NonAf 107.88 POC Glucometer 212 236 Random Glucose 217 H Calcium 8.3 L HOSPITAL COURSE: Date of Admission:02/03/19 Date of Discharge: 02/06/19 43 y/o/m with PMHx of DM not on any treatment presented with right groin pain and dysuria. Patient was found to have a clinically significant exam due to a right groin abscess and was diagnosed with sepsis 2/2 to the abscess. Patient had a CT A/P done which showed a moderate amount of fluid and edema in the right groin consistent with soft tissue infection. Patient had an I&D of the abscess done by Urology. Patient's sepsis resolved with abx and I&D procedure. Wound cx and Urine cx were positive for MRSA. Patient was treated with IV abx while in the hospital and per ID recommendations will be discharged on Clindamycin and Ceftin along with probiotic coverage for one month. Explained to patient to apply wet to dry dressing twice a day to incision. While in the hospital patient had elevated glucose levels due to uncontrolled DM and was treated with insulin sliding scale and Levemir. Patient to be discharged on Metformin and with followup with Dr. Elizondo, endocrinology, tomorrow for further management of his DM. Patient advised to follow up with Urology within one week. VNS set up for patient. Patient stable for discharge at this time; to follow up with Urology and Endocrinology. Minutes to complete discharge: 36 Discharge Summary Problems reviewed: Yes Reason For Visit: ABSCESS OF GROIN,TARUN'SGANGRENE,ABDOMINAL PAIN Current Active Problems Abdominal pain (Acute) Tarun's disease (Acute) Groin abscess (Acute) Right groin pain (Acute) Diabetes type 2, uncontrolled (Chronic) Condition: Improved - Instructions Diet, Activity, Other Instructions: You presented to the hospital with pain in your groin and were found to have an infection. You were seen by Urology, Dr. Goodman, for an urgent procedure to have incision and drainage of the abscess. You were started on IV antibiotics and are being discharged on oral antibiotics to continue at home. While in the hospital your glucose levels were elevated and you were given Insulin to help better control your glucose levels. You are being discharged on a medication to help with your sugar levels. Also you have an appointment scheduled with Dr. Elizondo, Endocrinology, for further assessment of the management of your diabetes. Visiting nurse services have been set up for you. You have been shown how to change the dressings for your wound. Medication Changes: 1. Started on Metformin 1000mg twice a day 2. Started on Clindamycin 450mg by mouth 3 times a day for 10 days. 3. Started on Ceftin 500mg twice a day for 7 days. Follow up with the following physicians: 1. Please follow up with your primary care provider within one week, if you do not have a primary care provider you can make an appointment with the [facility]. A referral number has been included in your discharge paperwork. 2. Please follow up with Dr. Goodman, Urology, for further care of your incision site in one week. 3. Please follow up with Dr. Elizondo, Endocrinology, for further management of your diabetes on Tuesday 01/30 @ 1pm. Activity and Diet 1. You are being discharged home. Recommend daily exercise to strengthen your muscles. 2. Please continue to monitor your diet as you need to intake less sugar and drink plenty of fluids. 3. Please continue to change the dressings over your incision site twice a day as directed by nursing staff. Continue all your other medications as prescribed Please return to the ER if you have any signs or symptoms of chest pain, shortness of breath, uncontrollable fever, chills, nausea, vomiting, numbness, tingling, or weakness in any part of your body, changes in vision, or slurred speech. Please return to the ER if symptoms persist, worsen, or new symptoms arise. Referrals: [facility] [place] [facility] [place] [Provider Group] Ángel Goodman MD [Staff Physician] - Princess Elizondo MD [Staff Physician] - Disposition: HOME - Home Medications Comprehensive Discharge Medication List: Ambulatory Orders Cefuroxime Axetil [Ceftin -] 500 mg PO Q12H #14 tablet 02/06/19 Clindamycin [Cleocin -] 450 mg PO Q8H #30 capsule 02/06/19 Lactobacillus Acidophilus [Bacid -] 1 each PO DAILY #30 capsule 02/06/19 Metformin HCl [Glucophage] 1,000 mg PO BID #30 tablet 02/06/19 This patient is new to me today: No Emergency Visit: Yes ED Registration Date: 02/03/19 Care time: The patient presented to the Emergency Department on the above date and was hospitalized for further evaluation of their emergent condition. Critical Care patient: No - Discharge Referral Referred to [facility] No ATTENDING PHYSICIAN STATEMENT I saw and evaluated the patient. I reviewed the resident's note and discussed the case with the resident. I agree with the resident's findings and plan as documented. SUBJECTIVE: OBJECTIVE: ASSESSMENT AND PLAN:
[2019-02-06] MEDS ORDERED: INSULIN (LEVEMIR) 100 UNITS/ML UNITS SQ ONE (17:14)
[2019-02-06] MEDS ORDERED: INSULIN (NOVOLOG) ASPART 100 UNITS/ML 10ML VIAL ONE (17:14)
[2019-02-06 17:21] VITALS: BP 133/78; PULSE 88; TEMP 98.2
== END 2019-02-06 18:36 | disposition home or self-care (01) | DRG 988 ==
LOC: JER 14:09 → JERBED 02-03 01:30 → JICU 02-03 10:03 → J7W 02-03 23:26
PROVIDERS: ADMIT Internal Medicine
PROC: 0Y950ZX Drainage of Right Inguinal Region, Open Approach, Diagnostic (ICD-10-PCS; principal; 2019-02-03 04:00)
DX: N49.3 Fournier gangrene (principal); L02.214 Cutaneous abscess of groin; Z68.42 Body mass index [BMI] 45.0-49.9, adult; R10.31 Right lower quadrant pain; E66.01 Morbid (severe) obesity due to excess calories; E11.9 Type 2 diabetes mellitus without complications; E11.65 Type 2 diabetes mellitus with hyperglycemia
CPT/HCPCS: 36415; 71045-TC-FY; 72192-TC; 74177-TC; 80048; 80053; 81003; 82803; 82962; 83036; 83605; 83735; 84100; 85025; 85027; 85610; 85730; 86480; 86850; 86900; 86901; 87040; 87070; 87077; 87086; 87186; 87205; 87389; 88304-TC; 93005; 93010; 94760; 97116-GP; 97162-GP; 99285-25; G0480; J0131; J1644; J7030; Q9967

== ENCOUNTER 2020-03-15 13:57 | Emergency (ER) | payer OTHER ==
[2020-03-15 14:15] VITALS: BMI 30.1
[2020-03-15 16:15] LABS: HEMATOCRIT 45.9 % (35.4-49); HEMOGLOBIN 15.7 GM/dL (11.7-16.9); LYMPH % 28.1 % (8-40); MCH 29.1 pg (25.7-33.7); MCHC 34.1 g/dl (32.0-35.9); MEAN CELL VOLUME 85.2 fl (80-96); MEAN PLT VOLUME 6.8 fl (7.5-11.1); MONO % 9.4 % (3.8-10.2); NEUT % 60.5 % (42.8-82.8); PLATELET COUNT 325 K/MM3 (134-434); RBC 5.39 M/mm3 (4.00-5.60); RDW 13.6 % (11.9-15.9); WHITE BLOOD COUNT 10.4 K/mm3 (4.0-10.0)
[2020-03-15 16:19] LABS: EPI CELLS 10 /uL (0-25.1); HYALINE CASTS 1 /uL (0-3.1); URINE APPEARANCE TURBID; URINE BACTERIA 59 /uL (0-1359); URINE BILIRUBIN NEGATIVE (NEGATIVE); URINE COLOR YELLOW; URINE GLUCOSE (UA) NEGATIVE (NEGATIVE); URINE KETONE NEGATIVE (NEGATIVE); URINE LEUK ESTERASE NEGATIVE (NEGATIVE); URINE NITRITE NEGATIVE (NEGATIVE); URINE PROTEIN 2+ (NEGATIVE); URINE RBC 425 /uL (0-23.9); URINE UROBILINOGEN 0.2 mg/dL (0.2-1.0); URINE WBC 25 /uL (0-25.8)
[2020-03-15 16:24] LABS: INR 1.03 (0.83-1.09); PROTHROMBIN TIME (PATIENT) 12.4 SEC (9.7-13.0)
[2020-03-15 16:41] LABS: CHLORIDE 106 mmol/L (98-107); POTASSIUM 4.5 mmol/L (3.5-5.1); SODIUM 143 mmol/L (136-145)
[2020-03-15 16:44] LABS: ALBUMIN 4.3 g/dl (3.4-5.0); ANION GAP 8 MMOL/L (8-16); BLOOD UREA NITROGEN 17.4 mg/dL (7-18); CALCIUM 9.6 mg/dL (8.5-10.1); CO2 28 mmol/L (21-32); GLUCOSE,RANDOM 111 mg/dL (74-106)
[2020-03-15 16:45] LABS: LIPASE 45 U/L (73-393)
[2020-03-15 16:47] LABS: CREATININE 0.9 mg/dL (0.55-1.3); SGOT/AST 20 U/L (15-37); SGPT/ALT 35 U/L (13-61)
[2020-03-15 16:49] LABS: BILIRUBIN,TOTAL 0.8 mg/dL (0.2-1); TOT PROT 7.9 g/dl (6.4-8.2)
[2020-03-15 16:50] LABS: ALK PHOS 75 U/L (45-117)
[2020-03-15 19:55] VITALS: BP 136/72; PULSE 72; TEMP 98
== END 2020-03-15 19:57 | disposition home or self-care (01) ==
LOC: JER 13:57
DX: N21.0 Calculus in bladder (principal)
CPT/HCPCS: 36415; 74177-TC; 80053; 81003; 82550; 82553; 83690; 84484; 85025; 85610; 87086; 87804; 93005; 93010; 99284-25; C9803; Q9967; U0003

== ENCOUNTER 2020-10-01 18:06 | Emergency (ER) | payer SELFPAY ==
[2020-10-01 19:33] VITALS: TEMP 97; BMI 41.8
[2020-10-01] MEDS ORDERED: ACETAMINOPHEN 500 MG TABLET (FP) PO ONE (20:47)
[2020-10-01] MEDS ORDERED: ACETAMINOPHEN 325 MG TABLET (FP) ONE ×2 (20:57→21:00)
[2020-10-01] MEDS ORDERED: LIDOCAINE HCL 2% JELLY 10 ML CARTRIDGE UR ONE (20:58)
[2020-10-01] MEDS ORDERED: LIDOCAINE HCL 2% JELLY 10 ML CARTRIDGE ONE (20:58)
[2020-10-01 21:31] LABS: EPI CELLS 22 /uL (0-25.1); HYALINE CASTS 1 /uL (0-3.1); URINE APPEARANCE TURBID; URINE BACTERIA 5494 /uL (0-1359); URINE BILIRUBIN NEGATIVE (NEGATIVE); URINE COLOR YELLOW; URINE GLUCOSE (UA) 3+ (NEGATIVE); URINE KETONE NEGATIVE (NEGATIVE); URINE LEUK ESTERASE 2+ (NEGATIVE); URINE NITRITE POSITIVE (NEGATIVE); URINE PROTEIN NEGATIVE (NEGATIVE); URINE RBC 42 /uL (0-23.9); URINE UROBILINOGEN 0.2 mg/dL (0.2-1.0); URINE WBC 2255 /uL (0-25.8)
[2020-10-01 22:00] LABS: BASO % 1.1 % (0-2.0); EOS % 1.6 % (0-4.5); HEMATOCRIT 43.6 % (35.4-49); LYMPH % 32.7 % (8-40); MCH 29.4 pg (25.7-33.7); MCHC 34.4 g/dl (32.0-35.9); MEAN CELL VOLUME 85.4 fl (80-96); MEAN PLT VOLUME 7.1 fl (7.5-11.1); MONO % 13.2 % (3.8-10.2); NEUT % 51.4 % (42.8-82.8); PLATELET COUNT 291 10^3/uL (134-434); RDW 14.1 % (11.9-15.9)
[2020-10-01 22:20] LABS: CALCIUM 8.8 mg/dL (8.5-10.1)
[2020-10-01 22:21] LABS: ALBUMIN 3.8 g/dl (3.4-5.0); BLOOD UREA NITROGEN 21.8 mg/dL (7-18)
[2020-10-01 22:24] LABS: CREATININE 1.3 mg/dL (0.55-1.3)
[2020-10-01] MEDS ORDERED: AZITHROMYCIN 500 MG TABLET PO ONE (22:25)
[2020-10-01 22:26] LABS: BILIRUBIN,TOTAL 0.6 mg/dL (0.2-1); TOT PROT 7.6 g/dl (6.4-8.2)
[2020-10-01] MEDS ORDERED: CEFTRIAXONE 1,000 MG in DEXTROSE 5%-WATER - 50 ML IVPB ONE (22:53)
[2020-10-01] MEDS ORDERED: CEFTRIAXONE 1 GM/50 ML BAG ONE (23:15)
[2020-10-01] MEDS ORDERED: AZITHROMYCIN 250 MG TABLET ONE (23:15)
[2020-10-02 01:13] VITALS: BP 140/96; PULSE 86
[2020-10-02 02:28] LABS: HIV INTERPRETATION NEGATIVE (NEGATIVE)
== END 2020-10-02 01:26 | disposition home or self-care (01) ==
LOC: JER 18:06
DX: N47.6 Balanoposthitis (principal)
CPT/HCPCS: 36415; 71046-TC-FY; 80053; 81003; 85025; 86780; 87086; 87186; 87389; 87491; 87591; 87661; 93005; 93010; 99285-25; C9803; U0003; U0005

== ENCOUNTER 2021-01-07 16:53 | Emergency (ER) | payer OTHER ==
[2021-01-07 17:25] VITALS: BP 136/67; PULSE 96; TEMP 98; BMI 58.2
[2021-01-07] MEDS ORDERED: DIPHTH,PERTUSS(ACELL),TET 0.5 ML DISP.SYRIN IM ONE ×2 (18:36→18:37)
== END 2021-01-07 19:10 | disposition home or self-care (01) ==
LOC: JERFT 16:53
PROC: 0HQFXZZ Repair Right Hand Skin, External Approach (ICD-10-PCS; principal; 2021-01-07)
PROC: 3E0234Z Introduction of Serum, Toxoid and Vaccine into Muscle, Percutaneous Approach (ICD-10-PCS; 2021-01-07)
DX: B37.42 Candidal balanitis (principal); E11.65 Type 2 diabetes mellitus with hyperglycemia; S61.211A Laceration without foreign body of left index finger without damage to nail, initial encounter
CPT/HCPCS: 82962; 90715; 99284-25

== ENCOUNTER 2023-09-07 18:16 | Observation (INO) | payer OTHER ==
[2023-09-07] MEDS ORDERED: ACETAMINOPHEN INJECTION 100 ML IVPB ONE (19:33)
[2023-09-07] MEDS: ACETAMINOPHEN 1000 MG/100 ML BAG IVPB ONE (19:37)
[2023-09-07 19:47] LABS: BASO % 0.9 % (0-2.0); HEMATOCRIT 45.1 % (35.4-49); HEMOGLOBIN 15.3 GM/dL (11.7-16.9); LYMPH % 26.2 % (8-40); MCH 28.9 pg (25.7-33.7); MEAN PLT VOLUME 6.8 fl (7.5-11.1); MONO % 12.3 % (3.8-10.2); NEUT % 57.6 % (42.8-82.8); PLATELET COUNT 269 10^3/uL (134-434); RDW 13.7 % (11.9-15.9); WHITE BLOOD COUNT 8.1 K/mm3 (4.0-10.0)
[2023-09-07 19:48] LABS: EPI CELLS 10 /uL (0-25.1); HYALINE CASTS 0 /uL (0-3.1); PH,URINE 5.5 (5.0-8.0); URINE APPEARANCE CLOUDY; URINE BACTERIA 3756 /uL (0-1359); URINE BILIRUBIN NEGATIVE (NEGATIVE); URINE COLOR YELLOW; URINE GLUCOSE (UA) 3+ (NEGATIVE); URINE KETONE NEGATIVE (NEGATIVE); URINE LEUK ESTERASE 2+ (NEGATIVE); URINE NITRITE POSITIVE (NEGATIVE); URINE PROTEIN 1+ (NEGATIVE); URINE RBC 392 /uL (0-23.9); URINE UROBILINOGEN 0.2 mg/dL (0.2-1.0); URINE WBC 2724 /uL (0-25.8)
[2023-09-07 20:00] LABS: POTASSIUM 4.1 mmol/L (3.5-5.1)
[2023-09-07 20:02] LABS: ALBUMIN 3.6 g/dl (3.4-5.0); BLOOD UREA NITROGEN 15.5 mg/dL (7-18); CALCIUM 9.1 mg/dL (8.5-10.1)
[2023-09-07 20:05] LABS: CREATININE 1.2 mg/dL (0.55-1.3)
[2023-09-07 20:07] LABS: BILIRUBIN,TOTAL 0.5 mg/dL (0.2-1); TOT PROT 6.7 g/dl (6.4-8.2)
[2023-09-07] MEDS ORDERED: CEFTRIAXONE 1 GM/50 ML BAG ONE (20:31)
[2023-09-07] MEDS ORDERED: PHENAZOPYRIDINE HCL 100 MG TABLET (FP) ONE (20:31)
[2023-09-07] MEDS: CEFTRIAXONE 1 GM in DEXTROSE 5%-WATER - 100 ML IVPB ONE (20:37)
[2023-09-07] MEDS: PHENAZOPYRIDINE HCL 100 MG TABLET (FP) PO ONE (20:54)
[2023-09-07] MEDS: INSULIN (NOVOLOG) ASPART 100 UNITS/ML 10ML VIAL SQ ONE (21:02)
[2023-09-08] MEDS: morphine SULFATE 4 MG/ML VIAL IVPUSH ONE (00:05)
[2023-09-08] MEDS ORDERED: morphine SULFATE 4 MG/ML VIAL ONE (00:08)
[2023-09-08] MEDS ORDERED: INSULIN (LEVEMIR) 100 UNITS/ML UNITS SQ ONE (03:04)
[2023-09-08] MEDS: SODIUM CHLORIDE 1,000 ML IV SCH (03:05)
[2023-09-08] MEDS: INSULIN (LEVEMIR) 100 UNITS/ML UNITS SQ ONE (03:05)
[2023-09-08 04:45] VITALS: BMI 45.7
[2023-09-08] MEDS: TAMSULOSIN HCL 0.4 MG CAP PO ONE (05:37)
[2023-09-08] MEDS: INSULIN ASPART SLIDING SCALE (NOVOLOG) 1 VIAL SQ SCH (07:06)
[2023-09-08] MEDS ORDERED: TAMSULOSIN HCL 0.4 MG CAP PO SCH (08:30)
[2023-09-08] MEDS ORDERED: PHENAZOPYRIDINE HCL 100 MG TABLET (FP) PO SCH (09:00)
[2023-09-08] MEDS: CEFTRIAXONE 1 GM in DEXTROSE 5%-WATER - 50 ML IVPB SCH (09:06)
[2023-09-08] MEDS: FINASTERIDE 5 MG TABLET (FP) PO SCH (09:07)
[2023-09-08] MEDS: ENOXAPARIN NA (PORCINE) 40 MG/0.4 ML DISP.SYRIN SQ SCH (09:07)
[2023-09-08] MEDS: INSULIN (LEVEMIR) 100 UNITS/ML UNITS SQ SCH (09:07)
[2023-09-08 10:06] LABS: BASO % 0.9 % (0-2.0); EOS % 3.8 % (0-4.5); HEMATOCRIT 42.2 % (35.4-49); HEMOGLOBIN 14.5 GM/dL (11.7-16.9); LYMPH % 30.8 % (8-40); MCH 29.4 pg (25.7-33.7); MCHC 34.3 g/dl (32.0-35.9); MEAN CELL VOLUME 85.8 fl (80-96); MEAN PLT VOLUME 6.9 fl (7.5-11.1); NEUT % 52.5 % (42.8-82.8); PLATELET COUNT 238 10^3/uL (134-434); RBC 4.92 M/mm3 (4.00-5.60); RDW 13.5 % (11.9-15.9); WHITE BLOOD COUNT 8.5 K/mm3 (4.0-10.0)
[2023-09-08 10:26] LABS: POTASSIUM 3.9 mmol/L (3.5-5.1)
[2023-09-08 10:28] LABS: BLOOD UREA NITROGEN 15.8 mg/dL (7-18); CALCIUM 8.9 mg/dL (8.5-10.1)
[2023-09-08 10:29] LABS: ALBUMIN 3.2 g/dl (3.4-5.0); MAGNESIUM 1.9 mg/dL (1.8-2.4)
[2023-09-08 10:31] LABS: CREATININE 1.1 mg/dL (0.55-1.3); PHOSPHOROUS 3.3 mg/dL (2.5-4.9)
[2023-09-08 10:33] LABS: BILIRUBIN,TOTAL 0.6 mg/dL (0.2-1); TOT PROT 6.2 g/dl (6.4-8.2)
[2023-09-08] MEDS: ACETAMINOPHEN 1000 MG/100 ML BAG IVPB PRN (15:35)
[2023-09-08] MEDS: MELATONIN 5 MG TABLETS PO ONE (23:37)
[2023-09-09] MEDS ORDERED: TAMSULOSIN HCL 0.4 MG CAP PO SCH (08:30)
[2023-09-09] MEDS: POLYETHYLENE GLYCOL (HEALTHYLAX) 3350 17 GM PACKET PO SCH (09:13)
[2023-09-09] MEDS: TAMSULOSIN HCL 0.4 MG CAP PO SCH (21:26)
[2023-09-10 09:38] LABS: BASO % 0.8 % (0-2.0); EOS % 3.1 % (0-4.5); HEMOGLOBIN 15.5 GM/dL (11.7-16.9); LYMPH % 33.1 % (8-40); MCH 29.5 pg (25.7-33.7); MCHC 35.1 g/dl (32.0-35.9); MEAN PLT VOLUME 6.7 fl (7.5-11.1); MONO % 12.2 % (3.8-10.2); NEUT % 50.8 % (42.8-82.8); PLATELET COUNT 253 10^3/uL (134-434); RBC 5.24 M/mm3 (4.00-5.60); RDW 13.7 % (11.9-15.9); WHITE BLOOD COUNT 8.3 K/mm3 (4.0-10.0)
[2023-09-10 10:02] LABS: POTASSIUM 3.9 mmol/L (3.5-5.1)
[2023-09-10 10:04] LABS: BLOOD UREA NITROGEN 12.9 mg/dL (7-18)
[2023-09-10 10:06] LABS: CREATININE 0.9 mg/dL (0.55-1.3)
[2023-09-10 10:07] LABS: CALCIUM 8.7 mg/dL (8.5-10.1)
[2023-09-10 11:16] VITALS: BP 114/85; PULSE 92; RESP 19; TEMP 98.2
== END 2023-09-10 11:04 | disposition home or self-care (01) ==
LOC: JER 18:16 → JERBED 09-08 01:06 → J5S 09-08 05:02
PROVIDERS: ADMIT Internal Medicine; ATTEND Internal Medicine
PROC: 3E033NZ Introduction of Analgesics, Hypnotics, Sedatives into Peripheral Vein, Percutaneous Approach (ICD-10-PCS; principal; 2023-09-08)
PROC: 3E03329 Introduction of Other Anti-infective into Peripheral Vein, Percutaneous Approach (ICD-10-PCS; 2023-09-08)
PROC: 3E023GC Introduction of Other Therapeutic Substance into Muscle, Percutaneous Approach (ICD-10-PCS; 2023-09-08)
DX: N21.0 Calculus in bladder (principal); N39.0 Urinary tract infection, site not specified; R31.9 Hematuria, unspecified; I10 Essential (primary) hypertension; E11.65 Type 2 diabetes mellitus with hyperglycemia; E66.01 Morbid (severe) obesity due to excess calories; Z79.4 Long term (current) use of insulin; Z87.442 Personal history of urinary calculi; Z87.891 Personal history of nicotine dependence; Z87.440 Personal history of urinary (tract) infections; Z90.49 Acquired absence of other specified parts of digestive tract
CPT/HCPCS: 36415; 74177-TC; 76870-TC; 80048; 80053; 81003; 82962; 83036; 83735; 84100; 85025; 87077; 87081; 87086; 87186; 93005; 93010; 96365; 96366; 96372; 96375; 96376; 99285-25; G0378; J0131; Q9967

== ENCOUNTER 2024-05-29 14:30 | Observation (INO) | payer OTHER ==
[2024-05-29] MEDS: SODIUM CHLORIDE 1,000 ML IV STA (17:21)
[2024-05-29] MEDS ORDERED: ACETAMINOPHEN INJECTION 100 ML ONE (17:23)
[2024-05-29] MEDS: ACETAMINOPHEN 1000 MG/100 ML BAG IVPB ONE (17:29)
[2024-05-29 17:30] LABS: ABSOLUTE IMMATURE GRANULOCYTES 0.06 x10^3/uL (0.0-0.031); EOSINOPHIL % 0.8 % (0.8-7.0); EOSINOPHILS # 0.08 x10^3/uL (0.04-0.54); HEMATOCRIT 47.9 % (40.1-51.0); MCHC 33.4 g/dl (32.3-36.5); MEAN CELL VOLUME 85.2 fl (79.0-92.2); MEAN PLT VOLUME 8.6 fl (9.4-12.4); MONOCYTE # 1.13 x10^3/uL (0.30-0.82); PLATELET COUNT 309 x10^3/uL (163-337); RDW 12.8 % (12.2-16.1)
[2024-05-29 17:35] LABS: EPI CELLS 16 /uL (0-25.1); HYALINE CASTS 0 /uL (0-3.1); URINE APPEARANCE TURBID; URINE BACTERIA >9,000 /uL (0-1359); URINE BILIRUBIN NEGATIVE (NEGATIVE); URINE COLOR YELLOW; URINE GLUCOSE (UA) 3+ (NEGATIVE); URINE KETONE NEGATIVE (NEGATIVE); URINE LEUK ESTERASE 2+ (NEGATIVE); URINE NITRITE POSITIVE (NEGATIVE); URINE PROTEIN 1+ (NEGATIVE); URINE UROBILINOGEN 0.2 mg/dL (0.2-1.0); URINE WBC 3672 /uL (0-25.8)
[2024-05-29 17:50] LABS: CHLORIDE 103 mmol/L (98-107); POTASSIUM 4.2 mmol/L (3.5-5.1); SODIUM 136 mmol/L (136-145)
[2024-05-29 17:52] LABS: ALBUMIN 3.7 g/dl (3.4-5.0); ANION GAP 9 mmol/L (4-13); CALCIUM 9.4 mg/dL (8.5-10.1); CO2 24 mmol/L (21-32)
[2024-05-29 17:53] LABS: GLUCOSE,RANDOM 276 mg/dL (74-106)
[2024-05-29 17:56] LABS: SGOT/AST 17 U/L (15-37); SGPT/ALT 37 U/L (13-61)
[2024-05-29 17:57] LABS: BILIRUBIN,TOTAL 0.9 mg/dL (0.2-1)
[2024-05-29 17:58] LABS: ALK PHOS 83 U/L (45-117)
[2024-05-29 18:05] LABS: BLOOD UREA NITROGEN 16.7 mg/dL (7-18)
[2024-05-29] MEDS ORDERED: PIPERACILLIN/TAZOB 3.375 GM 3.375 GM/50 ML BAG IVPB ONE (18:37)
[2024-05-29] MEDS: PIPERACILLIN/TAZOB 3.375 GM 3.375 GM in DEXTROSE 5%-WATER - 50 ML IVPB ONE (18:46)
[2024-05-29 19:03] LABS: HCV DIAGNOSTIC IN-HOUSE W/RFLX NON-REACTIVE (NONREACTIVE)
[2024-05-29 19:04] LABS: HIV INTERPRETATION NEGATIVE (NEGATIVE)
[2024-05-29 20:07] LABS: URINE RBC 270.9 /uL (0-23.9); YEAST PRESENT (NEGATIVE)
[2024-05-29] MEDS: VANCOMYCIN PREMIX 1.75 GM 1,750 MG/350 ML PIGGYBACK IVPB ONE (20:49)
[2024-05-29] MEDS: CLINDAMYCIN IVPB 300 MG in DEXTROSE 5%-WATER - 48 ML IVPB ONE (20:49)
[2024-05-29] MEDS ORDERED: INSULIN ASPART SLIDING SCALE (NOVOLOG) 1 VIAL SQ ONE (23:12)
[2024-05-29] MEDS: INSULIN ASPART SLIDING SCALE (NOVOLOG) 1 VIAL SQ SCH (23:18)
[2024-05-29] MEDS: INSULIN GLARGINE (LANTUS) 100 UNITS/ML UNITS SQ SCH (23:19)
[2024-05-29] MEDS ORDERED: INSULIN GLARGINE (LANTUS) 100 UNITS/ML UNITS SQ ONE (23:21)
[2024-05-30] MEDS: POLYETHYLENE GLYCOL (HEALTHYLAX) 3350 17 GM PACKET PO SCH (01:21)
[2024-05-30 02:03] VITALS: BMI 44.4
[2024-05-30] MEDS ORDERED: TAMSULOSIN HCL 0.4 MG CAP PO SCH (08:30)
[2024-05-30 09:07] LABS: ABSOLUTE IMMATURE GRANULOCYTES 0.05 x10^3/uL (0.0-0.031); BASOPHILS # 0.09 x10^3/uL (0.01-0.08); EOSINOPHIL % 2.2 % (0.8-7.0); EOSINOPHILS # 0.19 x10^3/uL (0.04-0.54); HEMATOCRIT 45.8 % (40.1-51.0); HEMOGLOBIN 14.7 g/dL (13.7-17.5); MCHC 32.1 g/dl (32.3-36.5); MEAN CELL VOLUME 88.4 fl (79.0-92.2); MEAN PLT VOLUME 8.9 fl (9.4-12.4); MONOCYTE % 14.2 % (5.3-12.2); PLATELET COUNT 294 x10^3/uL (163-337)
[2024-05-30 09:41] LABS: POTASSIUM 4.2 mmol/L (3.5-5.1)
[2024-05-30 09:59] LABS: CALCIUM 9.2 mg/dL (8.5-10.1)
[2024-05-30 10:00] LABS: BLOOD UREA NITROGEN 14.6 mg/dL (7-18)
[2024-05-30] MEDS ORDERED: CEFTRIAXONE 2 GM-D5W BAG 2 GM/50 ML BAG IVPB SCH (10:00)
[2024-05-30 10:02] LABS: ALBUMIN 3.3 g/dl (3.4-5.0); MAGNESIUM 1.9 mg/dL (1.8-2.4); PHOSPHOROUS 4.4 mg/dL (2.5-4.9)
[2024-05-30 10:03] LABS: BILIRUBIN,TOTAL 0.9 mg/dL (0.2-1); TOT PROT 6.4 g/dl (6.4-8.2)
[2024-05-30] MEDS: DOCUSATE SODIUM 100 MG CAPSULE (FP) PO SCH (10:48)
[2024-05-30] MEDS: CEFTRIAXONE 1 G/50 ML PREMIX 50 ML IVPB SCH (10:48)
[2024-05-30] MEDS: FINASTERIDE 5 MG TABLET (FP) PO SCH (10:48)
[2024-05-30] MEDS: ACETAMINOPHEN 1000 MG/100 ML BAG IVPB PRN (10:49)
[2024-05-30] MEDS: PHENAZOPYRIDINE HCL 100 MG TABLET (FP) PO ONE (15:48)
[2024-05-30] MEDS: INSULIN ASPART SLIDING SCALE (NOVOLOG) 1 VIAL SQ SCH (17:07)
[2024-05-30] MEDS: ENOXAPARIN NA (PORCINE) 40 MG/0.4 ML DISP.SYRIN SQ SCH (17:09)
[2024-05-30] MEDS: TAMSULOSIN HCL 0.4 MG CAP PO SCH (21:20)
[2024-05-31] MEDS: CLOTRIMAZOLE/BETAMET DIPROP 15 GM TUBE TP SCH (13:23)
[2024-05-31] MEDS: LISINOPRIL 5 MG TABLET PO SCH (16:58)
[2024-05-31] MEDS: INSULIN GLARGINE (LANTUS) 100 UNITS/ML UNITS SQ SCH (21:41)
[2024-05-31] MEDS: ATORVASTATIN CA 20 MG TABLET (FP) PO SCH (21:42)
[2024-06-01 09:48] LABS: CHOLESTEROL 202 mg/dL (50-200)
[2024-06-01 09:50] LABS: LDL CHOLESTEROL (ONLY SJRH) 135 mg/dL (5-100)
[2024-06-01 09:51] LABS: HDL CHOLESTEROL 39 mg/dL (40-60)
[2024-06-01 14:45] VITALS: RESP 18
[2024-06-01] MEDS: ACETAMINOPHEN 1000 MG/100 ML BAG IVPB PRN (21:52)
[2024-06-01] MEDS: INSULIN GLARGINE (LANTUS) 100 UNITS/ML UNITS SQ SCH (21:52)
[2024-06-02 06:40] VITALS: TEMP 97.5
[2024-06-02 10:42] VITALS: BP 116/73; PULSE 85
== END 2024-06-02 14:05 | disposition home or self-care (01) ==
LOC: JER 14:30 → JERBED 20:31 → J8W 23:31
PROVIDERS: ADMIT Internal Medicine; ATTEND Nurse Practitioner Family
PROC: 3E03329 Introduction of Other Anti-infective into Peripheral Vein, Percutaneous Approach (ICD-10-PCS; principal; 2024-05-29)
PROC: 3E033NZ Introduction of Analgesics, Hypnotics, Sedatives into Peripheral Vein, Percutaneous Approach (ICD-10-PCS; 2024-05-29)
PROC: 3E013VG Introduction of Insulin into Subcutaneous Tissue, Percutaneous Approach (ICD-10-PCS; 2024-05-29)
PROC: 3E0337Z Introduction of Electrolytic and Water Balance Substance into Peripheral Vein, Percutaneous Approach (ICD-10-PCS; 2024-05-29)
DX: N39.0 Urinary tract infection, site not specified (principal); N48.89 Other specified disorders of penis; R39.198 Other difficulties with micturition; N21.0 Calculus in bladder; R31.9 Hematuria, unspecified; N49.3 Fournier gangrene; E11.9 Type 2 diabetes mellitus without complications; I10 Essential (primary) hypertension; E78.5 Hyperlipidemia, unspecified; Z87.440 Personal history of urinary (tract) infections; E66.01 Morbid (severe) obesity due to excess calories; N20.0 Calculus of kidney; Z87.891 Personal history of nicotine dependence
CPT/HCPCS: 36415; 74177-TC; 76870-TC; 80053; 80061; 81003; 82962; 83036; 83605; 83735; 84100; 84460; 85025; 86140; 86803; 87081; 87086; 87186; 87389; 96361; 96365; 96367; 96368; 96372; 96375; 96376; 99285-25; G0378; J0131; J3370; Q9967